=== PATIENT | female | born 1965 | race Caucasian/White ===

== ENCOUNTER → 2017-07-27 14:57 | Outpatient (CLI) | payer OTHER, SELFPAY ==
[2017-07-27 15:27] LABS: Basophils # 0.1 K/mm3 (0-0.2); Basophils % 0.6 % (0.1-2.0); Eosinophils # 0.2 K/mm3 (0.0-0.4); Hematocrit 37.6 % (37.0-47.0); Hemoglobin 12.2 g/dL (12.2-16.2); Lymphocytes # 1.9 K/mm3 (0.7-4.5); Lymphocytes % 20.8 K/mm3 (10-50); Mean Corpuscular HGB Conc 32.5 g/dL (31.8-35.4); Mean Corpuscular Hemoglobin 31.6 pg (27.0-31.2); Mean Corpuscular Volume 97.2 fl (81-99); Mean Platelet Volume 7.8 fl (7.4-10.4); Monocytes # 0.5 K/mm3 (0.1-1.0); Monocytes % 5.6 % (1.7-9.3); Neutrophils # 6.6 K/mm3 (1.8-7.8); Platelet Count 312 K/mm3 (142-424); Red Blood Count 3.86 M/mm3 (4.20-5.40); Red Cell Distribution Width 13.4 % (11.5-17.5); White Blood Count 9.3 K/mm3 (4.8-10.8)
[2017-07-27 16:00] LABS: Anion Gap 12.1 mEq/L (5-15); Blood Urea Nitrogen 9 mg/dL (7-18); Carbon Dioxide 29 mmol/L (21.0-32.0); Chloride 107 mmol/L (98-107); Creatinine,Serum 0.74 mg/dL (0.55-1.02); Estimated Glomerular Filt Rate 83 ml/min (>60); GFR (African American) 100 ML/MIN (>60); Glucose 105 mg/dL (74-106); Potassium 4.1 mmoL/L (3.5-5.1); Sodium 144 mmol/L (136-145)
== END ==
PROVIDERS: PCP Emergency Medicine; Visit Provider Nurse Practitioner Obstetrics & Gynecology
DX: Z01.818 Encounter for other preprocedural examination (principal)
CPT/HCPCS: 36415; 80048; 85025; 93005

== ENCOUNTER 2017-07-29 11:00 | Inpatient (IN) | payer OTHER, SELFPAY ==
[2017-07-27 12:55] VITALS: BMI 29.2
[2017-07-29] VITALS (28 sets, daily range): BP systolic 128–177; BP diastolic 69–102; PULSE 69–95; RESP 16–20; TEMP 36.5–43; O2SAT 96–100
--- NOTE | 2017-07-29 07:03 | HMH.ANESCL ---
[facility] Anesthesia Checklist - Structural Data Admitted From: Home Planned Operative Procedure/s: lavh,bso Consent for Planned Operative Procedure(s) Verified: Yes Verified Documents: Surgical Consent - Airway Assessment C-Spine Mobility Assessed: Yes TMJ Mobility Assessed: Yes Dentition: Good Dentition - Neurological Assessment Level of Consciousness: Awake, Alert - Anesthesia Plan Anesthesia Risk discussed: Yes Anesthesia Plan: Verified ASA Class: II Anesthesia Type: General [facility] Anesthesia HX I have reviewed the patient's past medical history: Yes Medical History: Reports:: Hypertension Denies:: Cancer, Diabetes Mellitus Type 1, Diabetes Mellitus Type 2, Internal Pacemaker, MRSA, Seizures Other Medical History: Reports: Arthritis, Thyroid Disease. Denies: Blood Transfusion Reaction Laterality Cases: Right: Carpal Tunnel Release Other Surgeries: Yes: Tubal Ligation. No: Pacemaker Amputation: No Fractures: No Comment: carpal tunnel, ablation *Family Hx:: Hypertension, Diabetes, Heart Attack, Cancer
--- NOTE | 2017-07-29 07:07 | P.PN_ITS ---
[facility] Anesthesia Checklist - Structural Data Admitted From: Home Planned Operative Procedure/s: lavh,bso Consent for Planned Operative Procedure(s) Verified: Yes Verified Documents: Surgical Consent - Airway Assessment C-Spine Mobility Assessed: Yes TMJ Mobility Assessed: Yes Dentition: Good Dentition - Neurological Assessment Level of Consciousness: Awake, Alert - Anesthesia Plan Anesthesia Risk discussed: Yes Anesthesia Plan: Verified ASA Class: II Anesthesia Type: General [facility] Anesthesia HX I have reviewed the patient's past medical history: Yes Medical History: Reports:: Hypertension Denies:: Cancer, Diabetes Mellitus Type 1, Diabetes Mellitus Type 2, Internal Pacemaker, MRSA, Seizures Other Medical History: Reports: Arthritis, Thyroid Disease. Denies: Blood Transfusion Reaction Laterality Cases: Right: Carpal Tunnel Release Other Surgeries: Yes: Tubal Ligation. No: Pacemaker Amputation: No Fractures: No Comment: carpal tunnel, ablation *Family Hx:: Hypertension, Diabetes, Heart Attack, Cancer
[2017-07-29 07:11] LABS: Urine Pregnancy, HCG Qual. Negative (Negative)
--- NOTE | 2017-07-29 09:44 | HMH.OPNOTE ---
Date of procedure: 07/29/17 Pre-op Diagnosis:: Menorrhagia, fibroid uterus Post-op diagnosis:: other (Menorrhagia, fibroid uterus, omental adhesions) Procedure performed:: Laparoscopically assisted vaginal hysterectomy, bilateral salpingo-oophorectomy, extensive lysis of adhesions Surgeon:: Tim Ventura MD Ceramics Engineer(s):: Becki Preston REAL ESTATE LISTING CONSULTANT:: Adolfo Jamison Anesthesia: GETA Estimated blood loss (mL): 150 Clinical Note:: She is a 51-year-old lady who complains of bleeding around menopause. She has sound that showed a 3 cm fibroid within the endometrial cavity. I attempted endometrial biopsy but was unsuccessful as the cervical loss was too stenotic and she has had a previous endometrial ablation. After having discussed the risks and benefits we elected to go ahead with a laparoscopically assisted vaginal hysterectomy and bilateral salpingo-oophorectomy. Operative findings:: She had an anteverted bulky uterus consistent with her 3 cm fibroid. Ovaries and tubes appeared normal. There were extensive adhesions of omentum to the anterior abdominal wall just below the umbilicus. Rest the pelvis and upper abdomen appeared normal. Operative note:: She was taken to the operating room where general anesthesia was found to be adequate. She was prepped and draped in the normal sterile fashion in the semilithotomy position. A weighted speculum was placed in the vagina and the anterior lip of the cervix was grasped with a tenaculum. I then inserted an acorn retractor into the cervical office. I changed gloves and injected 10 cc of 0.5% ropivacaine around the umbilicus. Incision within the umbilicus and inserted a Veress needle into the abdominal cavity. The abdominal cavity was then insufflated with carbon dioxide gas to a pressure of 20 mmHg. I then inserted an 11 mm trocar under direct vision. I injected through and through at the pubic hairline, made a small incision here and inserted a 5 mm trocar under direct vision. I identified the inferior epigastric arteries on the left side, injected through and through and then inserted an 11 mm trocar under direct vision. This was similarly performed on the right side. The left round ligament was then grasped and cut with harmonic scalpel. This is followed by the anterior peritoneum to the midline overlying the bladder. I then grasped the left tube and cut through this with harmonic scalpel. The left utero-ovarian ligament was then taken down with harmonic scalpel. I then took down the posterior aspect of the broad ligament to the level of the uterosacral ligament on the left side. The uterine arteries were skeletonized. The bladder was then further taken down with harmonic scalpel. The uterine arteries were then identified and hemoclips were placed. Using harmonic scalpel on coagulation mode adjacent to the cervix I then took down the uterine arteries in a [id number] fashion. We then turned our attention to the patient's right side. The right round ligament was then taken down with harmonic scalpel. The anterior peritoneum was then taken down with harmonic scalpel joining up with the other side. The right tube was then cut with harmonic scalpel. The right utero-ovarian ligament was then grasped and using coagulation mode I cut through the ligament. The posterior aspect of the broad ligament on the right side was then taken down to the level of the uterosacral ligament. I further took down the bladder anteriorly and laterally. The uterine arteries on the right side were then skeletonized. Lynette applied to the uterine arteries and once again using harmonic scalpel adjacent to the cervix on coagulation mode I took down the uterine arteries. At this point in time it was noted that the uterine platelet ischemic. The left ovary was then grasped and using harmonic scalpel I freed it up on its infundibulopelvic ligament. 2 Endoloops were then applied to the ligament and the ovary and tube
--- NOTE | 2017-07-29 09:57 | P.OP_ITS ---
Date of procedure: 07/29/17 Pre-op Diagnosis:: Menorrhagia, fibroid uterus Post-op diagnosis:: other (Menorrhagia, fibroid uterus, omental adhesions) Procedure performed:: Laparoscopically assisted vaginal hysterectomy, bilateral salpingo-oophorectomy , extensive lysis of adhesions Surgeon:: Tim Ventura MD Traffic Rate Clerk(s):: Becki Preston BILINGUAL MANAGER:: Adolfo Jamison Anesthesia: GETA Estimated blood loss (mL): 150 Clinical Note:: She is a 51-year-old lady who complains of bleeding around menopause. She has sound that showed a 3 cm fibroid within the endometrial cavity. I attempted endometrial biopsy but was unsuccessful as the cervical loss was too stenotic and she has had a previous endometrial ablation. After having discussed the risks and benefits we elected to go ahead with a laparoscopically assisted vaginal hysterectomy and bilateral salpingo-oophorectomy. Operative findings:: She had an anteverted bulky uterus consistent with her 3 cm fibroid. Ovaries and tubes appeared normal. There were extensive adhesions of omentum to the anterior abdominal wall just below the umbilicus. Rest the pelvis and upper abdomen appeared normal. Operative note:: She was taken to the operating room where general anesthesia was found to be adequate. She was prepped and draped in the normal sterile fashion in the semilithotomy position. A weighted speculum was placed in the vagina and the anterior lip of the cervix was grasped with a tenaculum. I then inserted an acorn retractor into the cervical office. I changed gloves and injected 10 cc of 0.5% ropivacaine around the umbilicus. Incision within the umbilicus and inserted a Veress needle into the abdominal cavity. The abdominal cavity was then insufflated with carbon dioxide gas to a pressure of 20 mmHg. I then inserted an 11 mm trocar under direct vision. I injected through and through at the pubic hairline, made a small incision here and inserted a 5 mm trocar under direct vision. I identified the inferior epigastric arteries on the left side, injected through and through and then inserted an 11 mm trocar under direct vision. This was similarly performed on the right side. The left round ligament was then grasped and cut with harmonic scalpel. This is followed by the anterior peritoneum to the midline overlying the bladder. I then grasped the left tube and cut through this with harmonic scalpel. The left utero-ovarian ligament was then taken down with harmonic scalpel. I then took down the posterior aspect of the broad ligament to the level of the uterosacral ligament on the left side. The uterine arteries were skeletonized. The bladder was then further taken down with harmonic scalpel. The uterine arteries were then identified and hemoclips were placed. Using harmonic scalpel on coagulation mode adjacent to the cervix I then took down the uterine arteries in a [id number] fashion. We then turned our attention to the patient 's right side. The right round ligament was then taken down with harmonic scalpel. The anterior peritoneum was then taken down with harmonic scalpel joining up with the other side. The right tube was then cut with harmonic scalpel. The right utero-ovarian ligament was then grasped and using coagulation mode I cut through the ligament. The posterior aspect of the broad ligament on the right side was then taken down to the level of the uterosacral ligament. I further took down the bladder anteriorly and laterally. The uterine arteries on the right side were then skeletonized. Lynette applied to the uterine arteries and once again using harmonic scalpel adjacent to the cervix on coagulation mode I took herman
--- NOTE | 2017-07-29 10:01 | P.PN_ITS ---
[facility] Anesthesia Record Part II Discharge Time: 10:27 Destination: Medical Surgical Department PACU nurse assessment reviewed?: Yes Patient Condition:: Good Anesthesia Complications:: None
--- NOTE | 2017-07-29 10:01 | P.PN_ITS ---
[facility] Anesthesia Record Part I Intake, IV Amount: 1,000 Estimated blood loss (mL): 150 Urine output (mL): 50 Blood Products used (#): none Blood Pressure: 177/99 SaO2: 99 Pulse Rate: 77 Respiratory Rate: 18 Temperature: 98.0 F Patient is:: Drowsy, Nasal O2, Stable Stable to PACU at:: 09:57
[2017-07-29 11:03] LABS: Microscopic,Cath URINE MICROSCOPIC (MICROSCOPIC)
[2017-07-29 11:05] LABS: Appearance,Urine/Cath CLEAR (Clear); Bilirubin,Cath Negative (Negative); Blood, Urine/Cath TRACE-I (Negative); Color,Urine/Cath YELLOW (Yellow); Glucose,Urine/Cath (UA) Negative (Negative); Ketones,Urine/Cath Negative (Negative); Leukocyte Esterase,Cath Negative (Negative); Nitrate,Cath Negative (Negative); Protein,Urine/Cath Negative (Negative); Urobilinogen,Cath 0.2 EU/dl (0.2)
[2017-07-29 11:36] LABS: Bacteria,Urine/Cath 2+ /lpf; WBC,Urine/Cath Occasional #/hpf (0-3)
[2017-07-29 11:38] LABS: Squamous Epithelial Ur./Cath Occasional #/hpf (0-5)
--- NOTE | 2017-07-29 12:26 | SUR.PHASEI ---
1040-Pt transported to OB department room 279 via hospital bed per PrateekRN & KayliRN. Pt left in care of MEÑO Jacobson w/bed locked in lowest position. VSS. Family at bedside. Pt stable.
--- NOTE | 2017-07-29 15:54 | PC.NURSE ---
ANCEF 1 GM ANTIBIOTIC DOSE #1 POST OP NOW INFUSING. PATIENT TOLERATING MEDICATION WELL.
--- NOTE | 2017-07-29 17:07 | PC.NURSE ---
DR REILLY HERE ROUNDING THIS PM, INFORMED HIM OF PATIENT'S BLOOD PRESSURES BEEN SOMEWHAT ELELVATED, SHE TAKES LISINOPRIL 20 MG/ HCTZ 12.5 MG PO DAILY AND LEVOTHYROXINE 137MCG PO DAILY, HE WANTED FOR HER TO GET STARTED BACK ON HER HOME MEDICATIONS.
--- NOTE | 2017-07-29 17:30 | PC.NURSE ---
PATIENT IS S/P A LAVH * BSO* WITH LYSIS OF ADHESIONS WITH GENERAL ANESTHESIA. PATIENT HAS HAD SOME NAUSEA THIS AFTERNOON, ONLY A VERY SMALL AMOUNT OF EMESIS CAME UP, SHE HAS HAD ZOFRAN AND PHENERGAN THIS HAS HELPED SOME. PATIENT HAS 4 SMALL LAP SITES TO HER ABDOMEN, TELFA & TAGADERM THAT ARE DRY AND INTACT. SHE HAS HAD VERY SCANT AMOUNT OF DRAINAGE NOTED TO HER CHERYL PAD,PATIENT WAS STILL COMPLAINING OF ALOT OF DISCOMFORT FROM HER CATHETER, DR. REILLY WAS NOTIFIED AND HE WAS OKAY WITH US REMOVING IT NOW. BLOOD PRESSURES HAVE BEEN ELEVATED DURING HER PROCEDURE AND NOW DURING HER POST OP VS. Alex REILLY WAS NOTIFIED AND HER HOME MEDS HAVE BEEN RESTARTED AND THEY ARE STARTING TO IMPROVE ALREADY THE LAST BP WAS 145/84- HR 88-.
--- NOTE | 2017-07-29 18:43 | PC.NURSE ---
DR REILLY NOTIFIED PATIENT REQUESTING TO HAVE PADILLA CATH REMOVED TONIGHT INSTEAD OF IN THE AM. DR REILLY ORDERED TO REMOVE CATHETER TONIGHT. STATES SHE CAN HAVE WHATEVER SHE WANTS TO EAT THIS EVENING. STATES WILL BE DISCHARGED IN THE AM
--- NOTE | 2017-07-29 19:30 | PC.NURSE ---
Report received from Corby Chamberlain RN
[2017-07-30 04:15] VITALS: BP 160/85; PULSE 71; RESP 18; TEMP 37
--- NOTE | 2017-07-30 05:00 | PC.NURSE ---
Pt has rested well throughout the night. Has been very independent with her care. Ambulates in room freely and without difficulty. Tolerating small amounts of regular diet. (+) BS in all 4 quads, hypoactive. Denies issues with voiding. Has voided 600ml yellow, clear urine since removal of blas cath.. LR continues infusing at 125/hr.. 4 lap sites on abdomen with surgical dressings intact. Bottom dressing has old, light, sero-sang drainage. Abdomen non-distended and soft to palpate. Denies passing flatus. Lungs - wheezing in RT upper lobe, otherwise, clear and diminished. Loose, non-productive cough. Reports using incentive spirometer. V/S - BP high (normal for pt- takes meds), otherwise, WNL, afebrile. No edema noted. No longer wearing SCDs r/t ambulation. Denies any needs this morning other than her coffee. Looking forward to being discharged home.
[2017-07-30 06:48] LABS: Anion Gap 9.2 mEq/L (5-15); Blood Urea Nitrogen 8 mg/dL (7-18); Carbon Dioxide 27 mmol/L (21.0-32.0); Chloride 97 mmol/L (98-107); Creatinine Clearance Estimated 111 mL/min (0-300); Creatinine,Serum 0.71 mg/dL (0.55-1.02); Estimated Glomerular Filt Rate 87 ml/min (>60); GFR (African American) 105 ML/MIN (>60); Glucose 116 mg/dL (74-106); Potassium 3.2 mmoL/L (3.5-5.1); Sodium 130 mmol/L (136-145)
[2017-07-30 06:50] LABS: Basophils % 0.1 % (0.1-2.0); Eosinophils # 0.1 K/mm3 (0.0-0.4); Hematocrit 30.7 % (37.0-47.0); Hemoglobin 10.4 g/dL (12.2-16.2); Lymphocytes # 1.7 K/mm3 (0.7-4.5); Mean Corpuscular HGB Conc 33.8 g/dL (31.8-35.4); Mean Corpuscular Hemoglobin 32.3 pg (27.0-31.2); Mean Corpuscular Volume 95.6 fl (81-99); Mean Platelet Volume 8.2 fl (7.4-10.4); Monocytes # 0.8 K/mm3 (0.1-1.0); Monocytes % 6.7 % (1.7-9.3); Neutrophils # 8.8 K/mm3 (1.8-7.8); Neutrophils % 77.1 % (37.0-80.0); Platelet Count 238 K/mm3 (142-424); Red Blood Count 3.21 M/mm3 (4.20-5.40); Red Cell Distribution Width 13.1 % (11.5-17.5); White Blood Count 11.5 K/mm3 (4.8-10.8)
[2017-07-30 08:00] VITALS: BP 143/78; PULSE 79; RESP 18; TEMP 36.9; O2SAT 99
--- NOTE | 2017-07-30 08:00 | PC.NURSE ---
PATIENT WAS WEARING HER SCUDS BUT REMOVED THEM THIS AM, SHE IS AMBULATING IN THE ROOM INDEPENDENTLY AND WILL BE GOING HOME LATER THIS AM.
--- NOTE | 2017-07-30 08:24 | P.DS_ITS ---
General - General Admission date: 07/29/17 Discharge date: 07/30/17 HPI HPI: She is a 51-year-old lady who has had a previous ablation. She had an ultrasound because of bleeding and the ultrasound showed a 3 cm fibroid within the endometrial cavity. As result of that she was offered laparoscopically assisted vaginal hysterectomy and bilateral salpingo-oophorectomy. Objective Vital signs: Temp Pulse Resp BP Pulse Ox 98.6 F 71 18 160/85 97 07/30/17 04:15 07/30/17 04:15 07/30/17 04:15 07/30/17 04:15 07/29/17 18:00 no acute distress - *Routine Respiratory Exam Comments: She denies any shortness of breath or chest pain. Hospital Course Hospital Course: On July 29, 2017 she underwent a laparoscopically assisted vaginal hysterectomy and bilateral salpingo-oophorectomy. She has done well postop and has remained afebrile throughout her hospitalization. She is eating and drinking and ambulating. She is voiding well. She denies chest pain, shortness of breath or calf tenderness. Her incisions are clean and dry. She has received Delestrogen 20 mg in the PACU. Results Labs on day of discharge: Labs from last 24 hours 07/30/17 07/30/17 07/29/17 06:30 06:30 09:05 WBC 11.5 H RBC 3.21 L Hgb 10.4 L Hct 30.7 L MCV 95.6 MCH 32.3 H MCHC 33.8 RDW 13.1 Plt Count 238 MPV 8.2 Neut % (Auto) 77.1 Lymph % (Auto) 15.0 Larue % (Auto) 6.7 Eos % (Auto) 1.0 Baso % (Auto) 0.1 Neut # (Auto) 8.8 H Lymph # (Auto) 1.7 Larue # (Auto) 0.8 Eos # (Auto) 0.1 Baso # (Auto) 0.0 Sodium 130 L Potassium 3.2 L D Chloride 97 L Carbon Dioxide 27 Anion Gap 9.2 BUN 8 Creatinine 0.71 Estimated Creat Clear 111 Estimated GFR 87 Est GFR ( Amer) 105 Glucose 116 H Urine Color Yellow Urine Appearance Clear Urine pH 6.0 Ur Specific Wooton 1.020 Urine Protein Negative Urine Glucose (UA) Negative Urine Ketones Negative Urine Blood Trace-i Urine Nitrate Negative Urine Bilirubin Negative Urine Urobilinogen 0.2 Ur Leukocyte Esterase Negative Urine RBC None Urine WBC Occasional Ur Squamous Epith Cells Occasional Urine Bacteria 2+ A DS: Diagnosis - Discharge Diagnosis (1) Fibroid, uterine Status: Acute Discharge Plan - Patient Discharge Instructions ACTIVITY: No heavy lifting DIET: continue same diet - Follow up Plan Disposition: Home, Self-Nursing Home Medications: Home Medications Medication Instructions Recorded Confirmed Type hydrochlorothiazide 12.5 mg tablet 12.5 mg PO ONCE 07/21/17 07/29/17 History levothyroxine 200 mcg tablet 137 mcg PO DAILY 07/21/17 07/29/17 History lisinopril 20 mg tablet 20 mg PO ONCE 07/21/17 07/29/17 History Prescriptions/Medication Reconciliation: Continue levothyroxine 200 mcg tablet 137 mcg PO DAILY hydrochlorothiazide 12.5 mg tablet 12.5 mg PO ONCE lisinopril 20 mg tablet 20 mg PO ONCE
--- NOTE | 2017-07-30 10:00 | HMH.PHAVTE ---
[facility] Pharmacy VTE Monitoring - Patient Demographics Admission date: 07/29/17 Report Date: 07/30/17 Time: 10:00 Allergies/Adverse Reactions: Patient Allergies No Known Allergies Allergy (Unverified 06/02/17 14:38) Height: 1.6 m Weight: 74.956 kg Patient Problems: Current Active Problems Fibroid, uterine (Acute) - VTE Risk Labs: VTE Related Lab Results Hgb 10.4 g/dL (12.2-16.2) L 07/30/17 06:30 Hct 30.7 % (37.0-47.0) L 07/30/17 06:30 Plt Count 238 K/mm3 (142-424) 07/30/17 06:30 BUN 8 mg/dL (7-18) 07/30/17 06:30 Creatinine 0.71 mg/dL (0.55-1.02) 07/30/17 06:30 Estimated Creat Clear 111 mL/min (0-300) 07/30/17 06:30 - Prophylaxis VTE Prophylaxis Ordered?: Yes Types of VTE Prophylaxis: IPCS Knee High Location of Applied Device: Bilateral Lower Extremeties - VTE Diagnosis Confirmed Treatment or plan recommended: Continue Current Treatment
[2017-07-30 10:01] VITALS: RESP 18
== END 2017-07-30 10:15 | disposition home or self-care (01) | DRG 743 ==
LOC: OB 12:00
PROVIDERS: Admitting Provider Nurse Practitioner Obstetrics & Gynecology; Family Provider Emergency Medicine; PCP Emergency Medicine; Visit Provider Nurse Practitioner Obstetrics & Gynecology
PROC: 0UT9FZZ Resection of Uterus, Via Natural or Artificial Opening With Percutaneous Endoscopic Assistance (ICD-10-PCS; principal; 2017-07-29 07:30)
DX: N92.0 Excessive and frequent menstruation with regular cycle (principal); D25.9 Leiomyoma of uterus, unspecified; N73.6 Female pelvic peritoneal adhesions (postinfective)
CPT/HCPCS: 58552; 36415; 80048; 81001; 81025; 85025; 87086; 87088; 87186; 93005; 96372; 96374; J0131; J2270; J2405

== ENCOUNTER → 2017-10-29 10:05 | Outpatient (CLI) | payer OTHER, SELFPAY ==
--- NOTE | 2017-10-29 10:08 | XR_ITS ---
XR shoulder LT min 2V HISTORY: ITS.REASON: left shoulder pain ORDERING PHYSICIAN: Robb Powers MD PATIENT AGE: 51 years Comparison: None FINDINGS: 3 views obtained of left shoulder including an axillary view and Grashey view obtained No fracture or dislocation. No lytic or blastic change. There is normal mineralization. The joint spaces are well-preserved. No significant degenerative/arthritic changes. No erosive changes evident. No subacromial stenosis IMPRESSION: Negative, no acute finding
== END ==
PROVIDERS: PCP Emergency Medicine; Visit Provider Orthopaedic Surgery
DX: M75.42 Impingement syndrome of left shoulder (principal)
CPT/HCPCS: 73030

== ENCOUNTER → 2018-05-17 13:35 | Outpatient (CLI) | payer OTHER, SELFPAY ==
[2018-05-17 13:46] LABS: Basophils # 0.1 K/mm3 (0-0.2); Basophils % 0.6 % (0.1-2.0); Eosinophils # 0.1 K/mm3 (0.0-0.4); Eosinophils % 1.4 % (0.1-12.0); Hematocrit 43.9 % (37.0-47.0); Hemoglobin 14.2 g/dL (12.2-16.2); Lymphocytes # 1.5 K/mm3 (0.7-4.5); Lymphocytes % 17.8 % (10-50); Mean Corpuscular HGB Conc 32.3 g/dL (31.8-35.4); Mean Corpuscular Hemoglobin 31.8 pg (27.0-31.2); Mean Corpuscular Volume 98.4 fl (81-99); Mean Platelet Volume 7.8 fl (7.4-10.4); Monocytes # 0.5 K/mm3 (0.1-1.0); Monocytes % 5.6 % (1.7-9.3); Neutrophils % 74.5 % (37.0-80.0); Platelet Count 317 K/mm3 (142-424); Red Blood Count 4.46 M/mm3 (4.20-5.40); White Blood Count 8.1 K/mm3 (4.8-10.8)
[2018-05-17 14:08] LABS: Alanine Aminotransferase 23 U/L (12-78); Albumin Level 3.8 gm/dL (3.4-5.0); Albumin/Globulin Ratio 1.2 (1.1-1.8); Alkaline Phosphatase 105 U/L (46-116); Anion Gap 16.6 mEq/L (5-15); Aspartate Amino Transferase 13 U/L (15-37); Bilirubin,Total 0.3 mg/dL (0.2-1.0); Blood Urea Nitrogen 7 mg/dL (7-18); Calcium 9.6 mg/dL (8.5-10.1); Carbon Dioxide 25 mmol/L (21.0-32.0); Chloride 101 mmol/L (98-107); Cholesterol 175 mg/dL (140-200); Creatinine,Serum 0.76 mg/dL (0.55-1.02); Estimated Glomerular Filt Rate 80 ml/min (>60); Free T4 (Free Thyroxine) 0.84 ng/dl (0.76-1.46); GFR (African American) 97 ML/MIN (>60); Globulin 3.2 gm/dl (1.3-3.2); Glucose 87 mg/dL (74-106); HDL Cholesterol 58 mg/dL (29-89); LDL Cholesterol 102 mg/dL (0-130); Potassium 4.6 mmoL/L (3.5-5.1); Sodium 138 mmol/L (136-145); Thyroid Stimulating Hormone 1.84 uIU/ml (0.358-3.740); Triglycerides 77 mg/dL (30-200); VLDL Cholesterol 15 mg/dL (0-40)
[2018-05-18 10:32] LABS: Vitamin D 25 Hydroxy 23.2 ng/mL (30.0-100.0)
== END ==
PROVIDERS: Visit Provider Emergency Medicine
DX: I10 Essential (primary) hypertension (principal)
CPT/HCPCS: 80053; 80061; 82652; 84439; 84443; 85025

== ENCOUNTER → 2018-09-02 07:41 | Outpatient (CLI) | payer BC, OTHER, SELFPAY ==
--- NOTE | 2018-09-02 07:42 | NM_ITS ---
CARDIOLITE SPECT MYOCARDIAL PERFUSION LEXISCAN, REST AND STRESS: History: Hypertension, tobacco use, family history, fatigue Procedure: Patient exercised on Gordo protocol 8 minutes and 20 seconds, resting heart rate was 55 bpm resting blood pressure 154/87, with exercise maximum heart rate achieved was 1 26 bpm which is less than 85% of the maximum predicted heart rate and a blood pressure was 200, 90. Test was stopped due to shortness of breath and fatigue patient denied complained of chest pain. She has good exercise capacity achieved 10.1mets of workload on treadmill, the blood pressure response to exercise was adequate. Electrocardiogram: Resting electrocardiogram showed sinus bradycardia, possible high lateral infarct age indeterminate, with exercise there is less than 1.[address] segment depression noted from the baseline EKG. The EKG portion of the exercise Myoview is nondiagnostic as patient did not achieve the target heart rate. Cardiac stress and resting SPECT images: Cardiac stress and rest SPECT images were obtained using technetium 99 Myoview 32.1 mCi stress and 10.0 mCi at rest. Gated SPECT further analysis of segmental wall motion and calculation of ejection fraction also done. Cardiac stress and the suspect images show uniform myocardial activity without segmental perfusion abnormality, computer derived ejection fraction is 57% with no regional wall motion abnormality, right ventricle is normal size and contractility. Conclusion: 1. The EKG portion of the exercise Myoview is nondiagnostic as patient did not achieve the target heart rate, patient has good exercise capacity achieved 10.1mets of workload on treadmill, the blood pressure response to exercise was adequate, there was no exercise-induced chest discomfort. 2. No scintigraphic evidence of reversible ischemia seen at this level of exercise, computer derived ejection fraction is 57% with no regional wall motion abnormality, right ventricle is normal size and contractility.
--- NOTE | 2018-09-02 07:42 | CT_ITS ---
CT chest wo con HISTORY: Tobacco abuse, smoker, hypertension, COPD ITS.REASON: tob abuse ORDERING PHYSICIAN: Cash Gray MD PATIENT AGE: 52 years COMPARISON: None Technique: Axial images obtained without contrast. Sagittal, and coronal reformatted images are also generated and reviewed. All CT scans at the facility use one or more dose reduction, viz: automated exposure control, ma/kV adjustment per patient size (including targeted exams where dose is matched to indication, i.e. head), or iterative reconstruction technique. FINDINGS: There are few scattered small mediastinal lymph nodes some of which are calcified. No mediastinal or hilar mass or adenopathy. Coronary artery calcifications are present There are mild paraseptal emphysematous changes with hyperinflation and attenuation of the peripheral pulmonary vessels consistent with COPD. Calcified granuloma is present in the right upper lobe. 3 mm noncalcified nodule present in the central aspect of the right lower lobe series 3 image 42. Additional 3 to 4 mm noncalcified nodule present in the right lower lobe series 3 image 52. There are some mild fibrotic changes in the left lung base medially. A 7 mm noncalcified nodule with small central cavitation noted in the left lower lobe centrally series 3 image 45 associated with some bronchial thickening in this region. Upper abdominal images show left renal atrophy with a small exophytic cyst at 1.4 cm. Multilevel degenerative changes are present in the thoracic spine. IMPRESSION: 1. There are at least 2 noncalcified pulmonary nodules on the right at 4 mm or less. There is a 7 mm noncalcified nodule in the left lower lobe with a small central cavity associated with some bronchial thickening. Suggest 6 month follow-up for these findings. The left lower lobe nodule is indeterminate. 2. COPD with paraseptal emphysema 3. Coronary artery calcification
--- NOTE | 2018-09-02 07:42 | CA_ITS ---
PROCEDURE: 2-D M-mode and color Doppler study INDICATIONS FOR THE TEST: Chest pain COPD Heart Murmur Tobacco SmokingX Palpitations Fatigue SyncopeX Edema HypertensionXDiabetes Mellitus Rheumatic Fever SOB NAQVI Obesity Hyperlipidemia Family History HD Additional History X PATIENT INFORMATION HEIGHT: 62 WEIGHT:140 GENDER: Female B/P:146/83 2-D/M-MODE INTERPRETATION: 2-D MEASUREMENTS OBSERVED VALUES IN CMS Right Ventricular Dimension (RVDd) 2.2 Interventricular Septum (Thickness)(IVsd) 1.1 Left Ventricular Internal Dimensions(LVIDd) 4.9 Left Ventricular Posterior Wall (Thickness)(LVPWd) 1.2 Aortic Root 2.9 Aortic Cusp Separation 1.6 Left Atrial Dimensions (LAD) 3.6 2D 1. Left atrium is mildly enlarged, left ventricle is normal size, mild concentric left ventricular hypertrophy, visually estimated ejection fraction 55% with no regional wall motion abnormality. 2. The right atrium and right ventricle are normal size and contractility. 3. The aortic valve is minimally thickened and fibrosed. 4. The mitral and tricuspid valves are grossly normal. 5. The pulmonic valve is poorly visualized. 6. No significant pericardial effusion noted. DOPPLER INTERROGATION: Doppler interrogation of the aortic, mitral and tricuspid valvular presence of mild mitral and tricuspid regurgitation, calculated right ventricular systolic pressure is 33 mmHg, diastolic parameters are inconclusive, inferior vena cava is normal size with normal inspiratory collapse. CONCLUSION: 1. Mildly enlarged left atrium, normal left ventricular size, mild concentric left ventricular hypertrophy, visually estimated ejection fraction 55% with no regional wall motion abnormality, diastolic parameters are inconclusive. 2. Mild mitral and tricuspid regurgitation, calculated right ventricular systolic pressure 33 mmHg, inferior vena cava is normal size with normal inspiratory collapse. 3. No significant pericardial effusion noted.
--- NOTE | 2018-09-02 12:24 | HMH.ITSHM ---
Current Home Medications as stated by this patient Abigail Arechiga or patient services representative. []lisinopril levothyroxine metoprolol
== END ==
PROVIDERS: PCP Emergency Medicine; Visit Provider Internal Medicine Cardiovascular Disease
DX: R55 Syncope and collapse (principal); R42 Dizziness and giddiness; I10 Essential (primary) hypertension; Z72.0 Tobacco use
CPT/HCPCS: 71250; 78452; 93017; 93306; A9502

== ENCOUNTER → 2019-03-16 13:35 | Outpatient (CLI) | payer BC, SELFPAY ==
--- NOTE | 2019-03-16 13:41 | CT_ITS ---
PROCEDURE: CT CHEST WO CON CLINICAL INDICATION: 6 mth f/u due after 03/05/19 COMPARISON: CT abdomen and pelvis from 04/26/2018 including views of the lower chest. TECHNIQUE: Axial images obtained with sagittal and coronal reformats. All CT scans at the facility use one or more dose reduction, viz: automated exposure control, ma/kV adjustment per patient size (including targeted exams where dose is matched to indication, i.e. head), or iterative reconstruction technique. FINDINGS: Airway structures are patent without pleural effusion or pneumothorax. There is a benign calcified granuloma in the posterior base of the right upper lobe. There are stable irregular strands of increased density at the medial left lower lobe. The remainder of the lung galvez are clear without pleural effusion or pneumothorax. There are a few mild coronary artery calcifications. Heart size is normal. Mediastinal and hilar areas are unremarkable. Visualized upper abdominal structures are stable with partial visualization of the atrophic left kidney. IMPRESSION: No acute process. Medial segment left lower lobe scarring. Right upper lobe nodule is a benign calcified granuloma. Dictated by: Primo Garza 03/16/2019 14:39 Electronically signed by Primo Garza in [place] 03/16/2019 14:39
== END ==
PROVIDERS: PCP Emergency Medicine; Visit Provider Physician Assistant
DX: R91.8 Other nonspecific abnormal finding of lung field (principal)
CPT/HCPCS: 71250

== ENCOUNTER → 2019-05-19 14:23 | Outpatient (CLI) | payer BC, SELFPAY ==
[2019-05-21 18:27] LABS: H. pylori Breath Test Positive (Negative)
== END ==
PROVIDERS: Visit Provider Nurse Practitioner Family
DX: R10.13 Epigastric pain (principal); R11.2 Nausea with vomiting, unspecified
CPT/HCPCS: 83013

== ENCOUNTER → 2019-08-11 13:46 | Outpatient (CLI) | payer BC, SELFPAY ==
[2019-08-11 14:11] LABS: Chloride 98 mmol/L (98-107); Potassium 4.5 mmoL/L (3.5-5.1); Sodium 134 mmol/L (136-145)
[2019-08-11 14:13] LABS: Alanine Aminotransferase 41 U/L (12-78); Aspartate Amino Transferase 34 U/L (14-36); Blood Urea Nitrogen 14 mg/dl (7-17); Estimated Glomerular Filt Rate 88 ml/min (>60); GFR (African American) 106 ML/MIN (>60)
[2019-08-11 14:14] LABS: Albumin Level 3.9 g/dl (3.5-5.0); Albumin/Globulin Ratio 1.6 (1.1-1.8); Alkaline Phosphatase 80 U/L (38-126); Anion Gap 12.5 mEq/L (5-15); Bilirubin,Total 0.2 mg/dl (0.2-1.3); Calcium 9.7 mg/dl (8.4-10.2); Carbon Dioxide 28 mmol/L (22.0-30.0); Cholesterol 132 mg/dl (140-200); Globulin 2.4 g/dL (1.3-3.2); Glucose 101 mg/dl (74-100); HDL Cholesterol 66 mg/dl (40-60); Total Protein,Serum 6.3 g/dl (6.3-8.2); Triglycerides 78 mg/dl (30-150); VLDL Cholesterol 16 mg/dL (0-40)
[2019-08-11 14:16] LABS: Basophils % 0.3 % (0.1-2.0); Eosinophils # 0.1 K/mm3 (0.0-0.4); Eosinophils % 0.7 % (0.1-12.0); Hematocrit 40.8 % (37.0-47.0); Hemoglobin 13.3 g/dL (12.2-16.2); Lymphocytes # 1.2 K/mm3 (0.7-4.5); Lymphocytes % 13.1 % (10-50); Mean Corpuscular HGB Conc 32.6 g/dL (31.8-35.4); Mean Corpuscular Hemoglobin 32.3 pg (27.0-31.2); Mean Platelet Volume 10.3 fl (7.4-10.4); Monocytes # 0.5 K/mm3 (0.1-1.0); Monocytes % 4.8 % (1.7-9.3); Neutrophils # 7.6 K/mm3 (1.8-7.8); Neutrophils % 81.1 % (37.0-80.0); Platelet Count 239 K/mm3 (142-424); Red Blood Count 4.12 M/mm3 (4.20-5.40); White Blood Count 9.4 K/mm3 (4.8-10.8)
[2019-08-11 14:26] LABS: Direct LDL Cholesterol 55.61 mg/dL (100-129)
[2019-08-11 14:34] LABS: T4 (Thyroxine) 8.7 ug/dl (5.53-11.0)
[2019-08-12 10:17] LABS: Vitamin D 25 Hydroxy 50.3 ng/mL (30.0-100.0)
== END ==
PROVIDERS: Visit Provider Nurse Practitioner Family
DX: E07.9 Disorder of thyroid, unspecified (principal); I10 Essential (primary) hypertension
CPT/HCPCS: 80053; 80061; 82652; 84436; 84443; 85025

== ENCOUNTER → 2019-08-26 11:37 | Outpatient (CLI) | payer BC, SELFPAY ==
--- NOTE | 2019-08-26 11:44 | XR_ITS ---
PROCEDURE: XR HIP LT 2-3V W/PELVIS CLINICAL INDICATION: left hip pain Low back pain and left hip pain COMPARISON: [id number] CT abdomen pelvis wo/w con from 04/26/2018 FINDINGS: No fracture or dislocation. Small sclerotic focus is present in the left ilium 3 cm above the acetabulum possibly due to a bone island. Surgical clips are present in the pelvis. IMPRESSION: No acute findings. Dictated by: Dago Johns MD 08/26/2019 12:29 Electronically signed by Dago Johns MD in [place] 08/26/2019 12:29
--- NOTE | 2019-08-26 11:44 | XR_ITS ---
PROCEDURE: XR LUMBAR SPINE MIN 4V CLINICAL INDICATION: back pain Back injury with pain, low back pain radiating into the left hip COMPARISON: No exams were available for comparison FINDINGS: There is mild lumbar curvature convex left. There is degenerative disc disease in the lower thoracic spine, thoracolumbar junction, L1-L4, and L5-S1. Prominent endplate osteophytes are present at L2-L3. There is 1.3 cm anterolisthesis of L5 on S1 with prominent facet hypertrophic changes at L5-S1. There is generalized vascular calcification. No acute fracture or dislocation. IMPRESSION: Multilevel degenerative changes with grade 1-2 spondylolisthesis of L5 on S1 and mild lumbar scoliosis convex left Dictated by: Dago Johns MD 08/26/2019 12:37 Electronically signed by Dago Johns MD in [facility] 08/26/2019 12:37
== END ==
PROVIDERS: PCP Emergency Medicine; Visit Provider Emergency Medicine
DX: M54.9 Dorsalgia, unspecified (principal); M25.552 Pain in left hip
CPT/HCPCS: 72110; 73502

== ENCOUNTER → 2019-09-06 16:20 | Outpatient (CLI) | payer BC, SELFPAY ==
--- NOTE | 2019-09-06 16:20 | MM_ITS ---
PROCEDURE: MM DIG SCREENING MAMM BI W/CAD Digital Breast Tomosynthesis Included CLINICAL INDICATION: screening There is no personal or family history of breast cancer. COMPARISON: DIGMAMMS MAMMOGRAM SCREEN-POLYSOMNOGRAPHIC TECH N/C from 11/22/2002 [facility] DIGITAL MAMM-SCREEN BILATERAL from 10/23/2010 [facility] DIG MAMM-SCREEN MANUEL W/CAD from 11/28/2016 TECHNIQUE: Standard CC and MLO images and 3D Tomosynthesis was obtained. R2 CAD reviewed. FINDINGS: Moderate diffuse fibroglandular densities are seen throughout both breasts. There are few benign-appearing micro and macrocalcifications in each breast. There is no suspicious lesion in either breast and no suspicious microcalcifications.. IMPRESSION: Fibrofatty parenchyma with no suspicious lesions seen BI-RAD Category: 2 Benign Finding(s) FOLLOW-UP: 1YR 1 Year Follow-up (A letter has been sent to the patient regarding results of the study.) Dictated by: Dr. Sushil Wooten MD 09/07/2019 17:[address] Sushil Wooten MD in [place] 09/07/2019 17:13
== END ==
PROVIDERS: PCP Emergency Medicine; Visit Provider Emergency Medicine
DX: Z12.31 Encounter for screening mammogram for malignant neoplasm of breast (principal)
CPT/HCPCS: 77063; 77067

== ENCOUNTER 2019-09-28 14:07 | Emergency (ER) | payer BC, SELFPAY ==
[2019-09-28 14:10] VITALS: BP 148/73; PULSE 78; RESP 18; TEMP 36.7; O2SAT 97; BMI 29.2
--- NOTE | 2019-09-28 14:24 | HMH.COUGH ---
Cough Clinic HPI - History of Present Illness Complaint:: Cough, drainage and fever HPI:: Presents with 3 days of cough, occasionally productive associated with clear sinus drainage and headache. Has taken Claritin D with no imrovement in her synptoms. Temperature at home today was 99.4 and her PCP directed her to the [facility] Cough Clinic. No known exposure to confirmed COVID-19 case. Works at [employer]. Smokes 1 PPD. Home Medications: Home Medications Medication Instructions Recorded Confirmed Type Albuterol Sulfate [Albuterol 2.5 mg IH Q6HP PRN #90 neb 08/09/19 09/28/19 Rx 0.083% 2.5mg/3mL neb] acetaminophen 300 mg-codeine 30 mg 1 tab PO BID PRN #14 tab 08/26/19 09/28/19 Rx tablet cholecalciferol (vitamin D3) 25 1,000 unit PO DAILY #90 cap 09/08/19 09/28/19 Rx mcg (1,000 unit) capsule ergocalciferol (vitamin D2) 1,250 50,000 unit PO QWEEK #12 cap 09/08/19 09/28/19 Rx mcg (50,000 unit) capsule lisinopril 20 1 tab PO DAILY #90 tab 09/08/19 09/28/19 Rx mg-hydrochlorothiazide 25 mg tablet Amoxicillin [Amoxicillin 875MG 875 mg PO Q12H #20 tab 09/28/19 Rx Tab] Fluoxetine HCl 40 mg PO DAILY 09/28/19 09/28/19 History Levothyroxine Sodium [Synthroid 150 mcg PO DAILY 09/28/19 09/28/19 History 150mcg (0.15mg) tablet] Metoprolol Succinate 100 mg PO DAILY 09/28/19 09/28/19 History Allergies/Adverse Reactions: Allergies Allergy/AdvReac Type Severity Reaction Status Date / Time No Known Allergies Allergy Verified 08/26/19 09:57 Cough Clinic Triage - Symptoms Fever History: Yes (99.4 at home) Chills: No Myalgia: No Nasal Drainage: Yes Sore Throat: Yes Productive Cough: Yes Non-productive Cough: No Ear or Sinus Pain: Yes (sinus) Joint Pain: No Chest Pain: No Rash: No Shortness of Breath: Yes (considered baseline for her COPD.) Nausea or Vomitting: No Headache: Yes Abdominal Pain: No Diarrhea: No - Exposure History Foreign Travel: No Direct Contact with COVID-19 Patient: No - Risk Factors Greater than 60 Years Old: No COPD: Yes Diabetes: No Heart Disease: No Home Oxygen Use: No Chronic Renal Disease: No Chronic Liver Disease: No Neurologic/Neurodevelopmental/intellectual disability: No Other Chronic Diseases: No If Female, currently : No Current Smoker: Yes Former Smoker: No Cough Clinic History Medical History: Reports:: Anxiety, Chronic Obstructive Pulmonary Disease (COPD), Depression, Gastroesophageal Reflux Disease(GERD), Hyperlipidemia, Hypertension Denies:: Cancer, Diabetes Mellitus Type 1, Diabetes Mellitus Type 2, Internal Pacemaker, MRSA, Seizures Other Medical History: Reports: Arthritis, Hypothyroidism, Thyroid Disease. Denies: Blood Transfusion Reaction Comment: vitamin d def Laterality Cases: Right: Carpal Tunnel Release Other Surgeries: Yes: No Previous Surgery, BSO, Colonoscopy, EGD, Hysterectomy-Total, Tubal Ligation, Other. No: Pacemaker Amputation: No Fractures: No Comment: carpal tunnel, ablation - Social History Smoking Status: Current every day smoker Tobacco Type: cigarettes # Packs/Day (cigarettes): 1 #Yrs smoked (if former smoker): 36 Alcohol Intake: never Alcohol Intake Frequency:: holidays/special occasions only Substance Use Type: denies use Occupational Status: other Housing: house Household Members: spouse Comment: -she has not drank in the past 3-4 weeks; she stopped related to her blood pressure; she would only drink 12 ounces of rattlesnake every night; vodka and coffee mixture. -she will smoke cannabis once in a while - Psychiatric History Pschychiatric History:: Reports:: Anxiety, Depression Family Hx:: Hypertension, Diabetes, Heart Attack, Cancer, Coronary Artery Disease Comment: Father-[email or web address]'s. Mother-[employer] history: Tubal Ligation - Constitutional Constitutional: Denies body ache, Denies chills, Reports fever(s) (low grade) - ENT Ears, Nose, Mouth, and Throat: Reports as per HPI - Cardiovascular Cardiovascula
[2019-09-28 14:27] LABS: Hematocrit 42.8 % (37.0-47.0); Hemoglobin 13.1 g/dL (12.2-16.2); Mean Corpuscular HGB Conc 30.7 g/dL (31.8-35.4); Mean Corpuscular Hemoglobin 30.7 pg (27.0-31.2); Mean Corpuscular Volume 100.2 fl (81-99); Red Blood Count 4.28 M/mm3 (4.20-5.40); White Blood Count 8.6 K/mm3 (4.8-10.8)
[2019-09-28 14:28] LABS: Basophils % 0.4 % (0.1-2.0); Eosinophils # 0.1 K/mm3 (0.0-0.4); Eosinophils % 1.1 % (0.1-12.0); Lymphocytes # 1.6 K/mm3 (0.7-4.5); Lymphocytes % 18.5 % (10-50); Mean Platelet Volume 7.9 fl (7.4-10.4); Monocytes # 0.7 K/mm3 (0.1-1.0); Monocytes % 7.8 % (1.7-9.3); Neutrophils # 6.2 K/mm3 (1.8-7.8); Neutrophils % 72.1 % (37.0-80.0); Platelet Count 294 K/mm3 (142-424)
[2019-09-28 14:45] VITALS: BP 148/73; PULSE 78; RESP 16; TEMP 36.7; O2SAT 97
== END 2019-09-28 14:47 | disposition home or self-care (01) ==
PROVIDERS: Emergency Provider Family Medicine; PCP Emergency Medicine
DX: J01.00 Acute maxillary sinusitis, unspecified (principal); J44.9 Chronic obstructive pulmonary disease, unspecified; F41.8 Other specified anxiety disorders; K21.9 Gastro-esophageal reflux disease without esophagitis; E78.5 Hyperlipidemia, unspecified; I10 Essential (primary) hypertension; E03.9 Hypothyroidism, unspecified; F17.210 Nicotine dependence, cigarettes, uncomplicated
CPT/HCPCS: 36415; 85025; 99201; 99213

== ENCOUNTER 2020-01-03 15:59 | Observation (INO) | payer BC, SELFPAY ==
[2020-01-03] VITALS (14 sets, daily range): BP systolic 121–240; BP diastolic 71–160; PULSE 67–88; RESP 13–19; TEMP 36.5–36.8; O2SAT 96–100; BMI 29.2; BMI 28.1
--- NOTE | 2020-01-03 16:09 | CT_ITS ---
Procedure: CT ANGIO NECK CLINICAL HISTORY: left side numbness Left-sided numbness and dizziness COMPARISON: CT ANGIO HEAD from 01/03/2020 TECHNIQUE: IV Contrast: 100ml Optiray 350 Axial images obtained with sagittal and coronal reformats. All CT scans at the facility use one or more dose reduction, viz: automated exposure control, ma/kV adjustment per patient size (including targeted exams where dose is matched to indication, i.e. head), or iterative reconstruction technique. FINDINGS: CT angiogram of the neck: The aortic arch has an unremarkable appearance aside from some mild calcific plaque. No significant stenotic lesions of the great vessels. The vertebral arteries have an unremarkable appearance on both sides. Right carotid: The common carotid has an unremarkable appearance. The right internal carotid is unremarkable with no significant stenotic lesions. There is only minimal calcific plaque involving the right carotid bulb. Left carotid: The left common carotid has an unremarkable appearance. The carotid bulb and internal carotid artery on the left has an unremarkable appearance. No stenotic lesions. COPD noted in the upper lobes with some patchy ground-glass density in the central aspect of the right upper lobe and to lesser degree in the left upper lobe. There is mild prominence of the nasopharyngeal mucosa bilaterally nonspecific. There is also mild prominence of the tonsils. There are few small cervical lymph nodes CT angiogram of the head: The intracranial portion of the right internal carotid artery has an unremarkable appearance. There is minimal eccentric calcific plaque of the cavernous portion of the left ICA without significant stenosis. No aneurysm, arteriovenous malformation, or major intracranial occlusive process is apparent. The vertebral basilar system has an unremarkable appearance. No evidence of acute dural sinus thrombosis. There are some small filling defects within the sagittal sinus superiorly at the vertex and may be due to arachnoid granulations. The the no enhancing lesions are evident. No midline shift or mass effect. IMPRESSION: 1. No hemodynamic significant stenotic lesions evident in the neck or the head. 2. No evidence of aneurysm AVM or major intracranial occlusive process. 3. COPD with ground-glass density in the central aspect of the right upper lobe and to lesser degree on the left. Atypical/viral pneumonia is a consideration. 4. Mild prominence of the nasopharyngeal mucosa nonspecific Dictated by: Dago Johns MD 01/03/2020 17:37 Electronically signed by Dago Johns MD in [facility] 01/03/2020 17:37
--- NOTE | 2020-01-03 16:10 | ECG_ITS ---
APPROVED REPORT Exam: Resting ECG HR:71 bpm ECG Measurements Heart Rate 71 AXES MD 148 P 61 QRSd 94 QRS 17 QT 412 T 62 QTc 447 <Conclusion> Normal sinus rhythm Possible Left atrial enlargement Incomplete right bundle branch block Possible Anterior infarct, age undetermined Abnormal ECG Electronically signed by : Adolfo Linda, 01/07/2020 08:11:34
--- NOTE | 2020-01-03 16:10 | XR_ITS ---
PROCEDURE: XR CHEST 2V CLINICAL HISTORY: HTN, weakness COMPARISON: CXR CHEST(2 VIEWS-NOT PORTABLE) from 06/21/2014 CT CHEST WO CON from 03/16/2019 XR CHEST 2V from 08/09/2019 FINDINGS: The cardiomediastinal silhouette and pulmonary vascularity are within normal limits. The lungs are clear without infiltrates, suspicious nodules, or pleural effusions. No acute bony abnormalities. IMPRESSION: No acute findings. Dictated by: Dago Johns MD 01/03/2020 17:40 Electronically signed by Dago Johns MD in [place] 01/03/2020 17:40
--- NOTE | 2020-01-03 16:11 | PC.NURSE ---
at bedside at pt arrival
[2020-01-03 16:20] LABS: Basophils % 0.5 % (0.1-2.0); Eosinophils # 0.1 K/mm3 (0.0-0.4); Eosinophils % 1.8 % (0.1-12.0); Hematocrit 38.3 % (37.0-47.0); Hemoglobin 13.4 g/dL (12.2-16.2); Lymphocytes # 1.7 K/mm3 (0.7-4.5); Lymphocytes % 22.4 % (10-50); Mean Corpuscular HGB Conc 34.9 g/dL (31.8-35.4); Mean Corpuscular Hemoglobin 33.1 pg (27.0-31.2); Mean Corpuscular Volume 94.6 fl (81-99); Mean Platelet Volume 8.3 fl (7.4-10.4); Monocytes # 0.5 K/mm3 (0.1-1.0); Neutrophils # 5.3 K/mm3 (1.8-7.8); Neutrophils % 69.3 % (37.0-80.0); Platelet Count 282 K/mm3 (142-424); Red Blood Count 4.04 M/mm3 (4.20-5.40); Red Cell Distribution Width 13.5 % (11.5-17.5); White Blood Count 7.6 K/mm3 (4.8-10.8)
[2020-01-03 16:26] LABS: Alanine Aminotransferase 23 U/L (12-78); Albumin Level 4.3 g/dl (3.5-5.0); Albumin/Globulin Ratio 1.5 (1.1-1.8); Alkaline Phosphatase 124 U/L (38-126); Anion Gap 8.7 mEq/L (5-15); Aspartate Amino Transferase 29 U/L (14-36); Bilirubin,Total 0.5 mg/dl (0.2-1.3); Blood Urea Nitrogen 14 mg/dl (7-17); Calcium 10.2 mg/dl (8.4-10.2); Carbon Dioxide 31 mmol/L (22.0-30.0); Chloride 97 mmol/L (98-107); Creatinine Clearance Estimated 105 mL/min (50-200); Estimated Glomerular Filt Rate 87 ml/min (>60); GFR (African American) 106 ML/MIN (>60); Globulin 2.9 g/dL (1.3-3.2); Glucose 90 mg/dl (74-100); Potassium 3.7 mmoL/L (3.5-5.1); Sodium 133 mmol/L (136-145); Total Protein,Serum 7.2 g/dl (6.3-8.2)
[2020-01-03 16:43] LABS: Troponin I < 0.01 ng/ml (0.00-0.034)
--- NOTE | 2020-01-03 16:44 | PC.NURSE ---
Pt to rad.
[2020-01-03 16:58] LABS: Microscopic, Urine URINE MICROSCOPIC (MICROSCOPIC)
[2020-01-03 17:27] LABS: Appearance,Urine CLEAR (Clear); Bilirubin,Urine Negative (Negative); Blood, Urine Negative (Negative); Color,Urine YELLOW (Yellow); Glucose,Urine (UA) Negative (Negative); Ketones,Urine Negative (Negative); Leukocyte Esterase,Urine Negative (Negative); Nitrate,Urine Negative (Negative); Protein,Urine Negative (Negative); Urobilinogen,Urine 0.2 EU/dl (0.2)
--- NOTE | 2020-01-03 17:29 | HMH.EDGENADL ---
ED Disposition Clinical Impression: Hypertensive emergency, Left arm numbness, Left leg numbness Disposition: Admitted as Observation Condition on Discharge: Good Referrals: Nick Romero MD [Primary Care Provider] - Time of Disposition: 17:51 - Critical Care Critical Care Time: No Attestation: On 01/03/20, the high probability of a clinically significant, sudden or life threatening deterioration of the following system(s) required my full and direct attention, intervention and personal management. The time I documented below is in addition to time spent performing reported procedures but includes the following listed in this critical care notation. Medical Decision Making - Medical Records Medical records reviewed: Yes: I reviewed the patient's medical records. - Meng Inquiry Pt receiving controlled substance: No Vital Signs: 01/03/20 16:11 01/03/20 16:37 01/03/20 17:02 Temperature 98.2 F 98.2 F Temperature Source Oral Oral Pulse Rate [Right] 88 67 Respiratory Rate 16 16 Blood Pressure [Left Arm] 240/160 H 192/100 H 180/110 H Blood Pressure Mean [Left Arm] 186 130 133 Blood Pressure Source [Left Arm] Manual Cuff/ Auscultation Manual Cuff/ Auscultation Blood Pressure Position [Left Arm] Sitting 02 Sat by Pulse Oximetry 99 100 Oxygen Delivery Method Room Air Room Air - Lab Data Lab Results 01/03/20 16:10: WBC 7.6, RBC 4.04 L, Hgb 13.4, Hct 38.3, MCV 94.6, MCH 33.1 H, MCHC 34.9, RDW 13.5, Plt Count 282, MPV 8.3, Neut % (Auto) 69.3, Lymph % (Auto) 22.4, Bond % (Auto) 6.0, Eos % (Auto) 1.8, Baso % (Auto) 0.5, Neut # (Auto) 5.3, Lymph # (Auto) 1.7, Bond # (Auto) 0.5, Eos # (Auto) 0.1, Baso # (Auto) 0.0 01/03/20 16:10: Sodium 133 L, Potassium 3.7, Chloride 97 L, Carbon Dioxide 31 H, Anion Gap 8.7, BUN 14, Creatinine 0.70, Estimated Creat Clear 105, Estimated GFR 87, Est GFR ( Amer) 106, Glucose 90, Calcium 10.2, Total Bilirubin 0.5, AST 29, ALT 23, Alkaline Phosphatase 124, Troponin I < 0.01, Total Protein 7.2, Albumin 4.3, Globulin 2.9, Albumin/Globulin Ratio 1.5 01/03/20 16:46: Urine Color Yellow, Urine Appearance Clear, Urine pH 7.0, Ur Specific Hopkins 1.020, Urine Protein Negative, Urine Glucose (UA) Negative, Urine Ketones Negative, Urine Blood Negative, Urine Nitrate Negative, Urine Bilirubin Negative, Urine Urobilinogen 0.2, Ur Leukocyte Esterase Negative, Urine RBC None, Urine WBC None, Ur Squamous Epith Cells None, Urine Bacteria None 01/03/20 16:46: Urine Opiates Screen Negative, Urine Methadone Screen Negative, Ur Barbituates Screen Negative, Ur Phencyclidine Scrn Negative, Ur Amphetamines Screen Negative, U Benzodiazepines Scrn Negative, Urine Cocaine Screen Negative, U Marijuana (THC) Screen Negative Result diagrams: 01/03/20 16:10 01/03/20 16:10 Orders (Tests/Meds): ED MEDICATIONS Discontinued Medications Generic Name Dose Route Start Last Admin Trade Name Fidelq PRN Reason Stop Dose Admin Ioversol 100 ml 01/03/20 17:06 01/03/20 17:07 Rad-Optiray 350 100ml Vial IV 01/03/20 17:07 100 ml ONCE ONE Administration Protocol Nicardipine HCl 5 mg 01/03/20 17:41 01/03/20 18:05 Cardene Iv 25mg/10ml Vial IV 01/03/20 17:42 5 mg ONCE ONE Administration Sodium Chloride 10 ml 01/03/20 17:06 01/03/20 17:07 Rad-Saline Flush 10ml Syringe IV 01/03/20 17:07 10 ml ONCE ONE Administration Sodium Chloride 50 ml 01/03/20 17:06 01/03/20 17:07 Rad-Ns 50ml Vial IV 01/03/20 17:07 50 ml ONCE ONE Administration ORDERS Category Date Time Status Troponin I Q3H Lab 01/03/20 19:15 Ordered Troponin I Q3H Lab 01/03/20 22:15 Ordered EKG Request [ECG Request by /Kacie] Stat Y 01/03/20 16:10 Ordered Medical Decision Narrative: In summary this is a 54-year-old female presenting to the emergency department with numbness and tingling in her left arm and left leg. Patient is currently asymptomatic on arrival. Last known normal was 4 hours
[2020-01-03 17:39] LABS: Amphetamine/Metha Screen,Urine Negative ng/ml (<1000); Barbiturates Screen,Urine Negative ng/ml (<200)
[2020-01-03 17:40] LABS: Benzodiazepines Screen,Urine Negative ng/ml (<200)
[2020-01-03 17:41] LABS: Cannabinoid Screen,Urine Negative ng/ml (<50); Cocaine Screen,Urine Negative ng/ml (<300)
[2020-01-03 17:42] LABS: Methadone Screen,Urine Negative ng/ml (<300); Opiate Screen,Urine Negative ng/ml (<300)
[2020-01-03 17:43] LABS: Phencyclidine Screen,Urine Negative ng/ml (<25)
--- NOTE | 2020-01-03 17:55 | PC.NURSE ---
spoke with pharmacy about dosing
--- NOTE | 2020-01-03 18:30 | PC.NURSE ---
called report to Carleen
--- NOTE | 2020-01-03 19:20 | PC.NURSE ---
received report from lizzie ruiz. cardene drip stopped at this time per md order. no acute distress. taken to floor via and lizzie rainey
--- NOTE | 2020-01-03 19:23 | PC.NURSE ---
patient up to floor via wheelchair.
--- NOTE | 2020-01-03 21:31 | HMH.HP ---
*Admission Date: 01/03/20 *Chief complaint: numbness *History of present illness: this wf presented to the ed - t advises around 12:30 the whole left side of her body went numb and felt like she couldnt feel her own skin. Advises it lasted about a hour, denies any other symptoms besides feeling dizzy with this episode. Pt has no complaints at arrival to the ED 54-year-old female presenting to the emergency department with numbness on the left side of her body. She has had symptoms intermittently over the last month. Today symptoms started around 1 PM and lasted for 90 minutes. She felt a tingling sensation in her arm and her leg. They felt heavy. No numbness or weakness in her face. No speech or vision difficulties. She takes medication for hypertension, says her blood pressure has been elevated recently. Denies current headache, neck pain, chest pain, shortness of breath. n summary this is a 54-year-old female presenting to the emergency department with numbness and tingling in her left arm and left leg. Patient is currently asymptomatic on arrival. Last known normal was 4 hours ago, symptoms lasted for 90 minutes. On arrival she is significantly hypertensive with systolic blood pressure 240, diastolic greater than 100. She is taking lisinopril HCTZ. No other medications. Differential diagnoses include acute ischemic stroke, transient ischemic attack, hypertensive emergency. Plan to obtain CBC, CMP, chest x-ray, EKG, troponin profile, CT angiography of the head and neck. Patient given 5 mg of nicardipine over 1 hour. Laboratory results are generally unremarkable. No coronary ischemia. Renal function adequate. CT of the head and neck shows no acute ischemia or stenosis. It does see COPD in the lung apices. On reassessment patient's blood pressure has decreased by 20%. Overall presentation is most consistent with hypertensive emergency. Patient would benefit from admission and more aggressive treatment of hypertension. pt was admitted for eval and treatment - [facility] History I have reviewed the patient's past medical history: Yes Medical History: Reports:: Anxiety, Chronic Obstructive Pulmonary Disease (COPD), Depression, Gastroesophageal Reflux Disease(GERD), Hyperlipidemia, Hypertension Denies:: Cancer, Diabetes Mellitus Type 1, Diabetes Mellitus Type 2, Internal Pacemaker, MRSA, Seizures *Have you ever received a pneumonia vaccine?: No *Have you received a flu vaccine this season?: No Other Medical History: Reports: Anemia, Arthritis, Hypothyroidism, Thyroid Disease. Denies: Blood Transfusion Reaction Laterality Cases: Right: Carpal Tunnel Release Other Surgeries: Yes: No Previous Surgery, BSO, Colonoscopy, EGD, Hysterectomy-Total, Hysterectomy-Partial, Tubal Ligation, Other. No: Pacemaker Amputation: No Fractures: No - *Social History Last grade of school completed: Some college Smoking Status: Current every day smoker Tobacco Type: cigarettes # Packs/Day (cigarettes): 1 #Yrs smoked (if former smoker): 36 Alcohol Intake: never Alcohol Intake Frequency:: holidays/special occasions only Substance Use Type: denies use *Occupational Status:: employed Housing: house Household Members: spouse *Travel in the last 8 weeks: None - Psychiatric History Pschychiatric History:: Reports:: Anxiety, Depression Family Hx:: Anemia, Asthma, Bleeding Disorder, Cancer, Diabetes, Heart Attack, Hyperlipidemia, Hypertension, Kidney Disease, Stroke, Substance abuse, Alcoholism, Mental illness [employer]ER history: Tubal Ligation Review of Systems - Review of Systems Review of systems:: pertinent systems reviewed and negative unless documented below - Constitutional Denies fatigue, Denies fever(s) - Eyes Denies change in vision - ENT Denies nasal congestion, Denies pain with swallowing - *Cardiovascular Denies chest pain at rest, Denies shortness of breath - *Respiratory Denies cough - *Gastrointestinal Denies abdominal pain - *Genitouri
[2020-01-04] VITALS (10 sets, daily range): BP systolic 134–160; BP diastolic 67–93; PULSE 61–78; RESP 14–17; TEMP 36.7–36.8; O2SAT 94–98
--- NOTE | 2020-01-04 02:26 | PC.NURSE ---
She reports that she presented to the ER after having some numbness to her left extremities that felt different today. She reports that she works at [employer] and went to see the nurse there that stated she felt like she should be seen by a physician. She reports that she called her PCP where he suggested she be seen in the ER for evaluation. She was diagnosed with hypertensive emergency and placed on a cardene gtt for one hour. Her BP decreased to WNL. She reports that her blood pressure is never that low and stated that she felt dizzy. She has been encouraged to call out for assistance to the [facility] and has done so appropriately. She is A&Ox4. Lung sounds with scattered rhonchi in the posterior. She reports that she has been smoking 1PPD for the past 39 years. She continues on RA and has a nicotine patch on her RUE. Normal bowel sounds. NSR on telemetry.
--- NOTE | 2020-01-04 05:12 | PC.NURSE ---
She is awake and ambulated to the bathroom at this time with steady gait. She denies dizziness and reports that she feels great.
[2020-01-04 06:36] LABS: Chloride 100 mmol/L (98-107)
[2020-01-04 06:37] LABS: Sodium 133 mmol/L (136-145)
[2020-01-04 06:40] LABS: Blood Urea Nitrogen 11 mg/dl (7-17); Calcium 9.5 mg/dl (8.4-10.2); Carbon Dioxide 28 mmol/L (22.0-30.0); Creatinine Clearance Estimated 118 mL/min (50-200); Estimated Glomerular Filt Rate 104 ml/min (>60); GFR (African American) 126 ML/MIN (>60); Glucose 125 mg/dl (74-100)
--- NOTE | 2020-01-04 07:37 | HMH.PHAVTE ---
[facility] Pharmacy VTE Monitoring - Patient Demographics Admission date: 01/03/20 Report Date: 01/04/20 Time: 07:38 Allergies/Adverse Reactions: Patient Allergies No Known Allergies Allergy (Verified 01/03/20 19:46) Height: 1.57 m Weight: 69.808 kg Patient Problems: Current Active Problems Hypertensive emergency (Acute) Left arm numbness (Acute) Left leg numbness (Acute) - VTE Risk Labs: VTE Related Lab Results Hgb 13.4 g/dL (12.2-16.2) 01/03/20 16:10 Hct 38.3 % (37.0-47.0) 01/03/20 16:10 Plt Count 282 K/mm3 (142-424) 01/03/20 16:10 BUN 11 mg/dl (7-17) 01/04/20 06:10 Creatinine 0.60 mg/dl (0.52-1.04) 01/04/20 06:10 Estimated Creat Clear 118 mL/min (50-200) 01/04/20 06:10 VTE Score: 4 Clinical Trial Participant: No - Prophylaxis VTE Prophylaxis Ordered?: Yes Types of VTE Prophylaxis: TEDS Knee High
--- NOTE | 2020-01-04 08:06 | CA_ITS ---
APPROVED REPORT EXAM: Comprehensive 2D, Doppler, and color-flow Echocardiogram [employer]: Araceli Baker RT(R) Ht: 5 ft 2 in Wt: 153lbs BSA: 1.71 BP: 131/76 mmHg Indications: COPD, HTN, hyperlipidemia, r/o TIA 2D Dimensions LVOT 1.90 cm (M/F) 1.5-2.5 M-Mode Dimensions RVDd 2.48 cm (0.9-2.6) LVDd 4.33 cm (3.5-5.7) LVDs 3.39 cm (3.5-5.7) IVSd 0.97 cm (0.6-1.1) PWd 0.94 cm (0.6-1.1) EF (Teich) 44.20% FS 21.70% EDV (Teich) 84.40 mL ESV (Teich) 47.10 mL LV Diastology E/A Ratio 0.83 Mitral Valve MV A Velocity 87.00 (40-130 cm/s) Left Ventricle Left atrium is mildly enlarged, left ventricle is normal size, mild concentric left ventricular hypertrophy, visually estimated ejection fraction 55% with no regional wall motion abnormality, Doppler evidence of impaired LV relaxation seen. Right Ventricle Right atrium and right ventricular normal size and contractility. Aortic Valve Aortic valve is minimally thickened and fibrosed, there is no aortic stenosis or aortic insufficiency. Mitral Valve Mitral valve is grossly normal, there is mild mitral regurgitation. Tricuspid Valve Tricuspid valve grossly normal, there is mild tricuspid regurgitation, tricuspid regurgitation jet velocity is inadequate for calculation of the right ventricular systolic pressure. Pulmonic Valve Pulmonic valve is poorly visualized. Great Vessels Aortic root is normal size. Pericardium No significant pericardial effusion noted. Conclusion 1. Mildly enlarged left atrium, normal left ventricular size, mild concentric left ventricular hypertrophy, visually estimated ejection fraction 55% with no regional wall motion abnormality, Doppler evidence of impaired LV relaxation seen. 2. Mild mitral and tricuspid regurgitation. 3. No significant pericardial effusion noted. Electronically signed by : Cash Gray, 01/05/2020 10:04:03
--- NOTE | 2020-01-04 08:18 | HMH.PHAINT ---
MEDICATION RECONCILIATION COMPLETED USING EXTERNAL FILL HISTORY.
--- NOTE | 2020-01-04 10:34 | CA_ITS ---
APPROVED REPORT Assistant Cross Country Coach: Lucila Haji RVT Study Quality: Good Indications: hypertensive emergency Risk Factors Hypertension Smoking Renal Artery Doppler Origin (R) 158.7/ cm/sec Proximal (R) 162.4/ cm/sec Mid (R) 169.3/ cm/sec Distal (R) 125.3/ cm/sec Renal Aorta Ratio (R) 1.50 Segmental A. (R) 59.6/15.7 cm/sec RI: 0.73 Segmental A. Sup (R) 59.6/15.7 cm/sec Segmental A. Mid (R) 51.1/20.7 cm/sec Segmental A. Inf (R) 40.0/12.0 cm/sec Origin (L) 87.4/ cm/sec Proximal (L) 109.7/ cm/sec Mid (L) 95.9/ cm/sec Distal (L) 55.3/ cm/sec Renal Aorta Ratio (L) 0.97 Segmental A. (L) 44.9/17.7 cm/sec RI: 0.60 Segmental A. Sup (L) 32.7/12.3 cm/sec Segmental A. Mid (L) 44.9/17.7 cm/sec Segmental A. Inf (L) 39.4/20.4 cm/sec Renal Measurements Kidney Size (R) 12.1x7.1 cm Cortical Thickness (R) 1.9 cm Kidney Size (L) 8.8x5.3 cm Cortical Thickness (L) 0.5 cm Conclusion Study suggests no evidence of bilateral renal artery stenosis. Multiple cysts seen left kidney the largest measuring 1.4 cm. Left kidney is smaller in size and cortical thinning seen. Electronically signed by : Dago Jhons MD 01/04/2020 12:39:51
--- NOTE | 2020-01-04 10:36 | HMH.CNCARD ---
History of Present Illness Consult date: 01/04/20 Requesting physician: Nick Romero Consult reason: hypertension Chief complaint: left sided numbness Additional Medical History:: 1. HTN 2. HLD 3. COPD 4. tobacco user 5. pulmon htn A. echo, 08/2018, 1. Mildly enlarged left atrium, normal left ventricular size, mild concentric left ventricular hypertrophy, visually estimated ejection fraction 55% with no regional wall motion abnormality, diastolic parameters are inconclusive. 2. Mild mitral and tricuspid regurgitation, calculated right ventricular systolic pressure 33 mmHg, inferior vena cava is normal size with normal inspiratory collapse. 3. No significant pericardial effusion noted. Myoview 08/2018 shows: 1. The EKG portion of the exercise Myoview is nondiagnostic as patient did not achieve the target heart rate, patient has good exercise capacity achieved 10.1mets of workload on treadmill, the blood pressure response to exercise was adequate, there was no exercise-induced chest discomfort. 2. No scintigraphic evidence of reversible ischemia seen at this level of exercise, computer derived ejection fraction is 57% with no regional wall motion abnormality, right ventricle is normal size and contractility. History of present illness: This is a 54-year-old female who presented to the emergency department with complaints of left-sided numbness and tingling. She states that her left arm and left leg started tingling around 1 PM yesterday and lasted for approximately 90 minutes or so. The patient states that she has been having issues with high blood pressure for quite some time now and over the last month she has noticed that her blood pressure has been high. But yesterday was the first time that she had the numbness and tingling in the left side of her body which prompted her to come to the emergency department. In the emergency department her systolic blood pressure was between 220 and 240 and her diastolic blood pressure was greater than 100. She has been taking her lisinopril HCT at home but had ran out of her beta-vel and did not call the office for a refill. She denies any chest pain or pressure. She denies any shortness of breath or edema. She denies any fever, chills, nausea, vomiting, diarrhea, PND or orthopnea. She states typically with her high blood pressure she has no symptoms and yesterday was the first time that she had had the left-sided numbness. She did have a CTA of her neck and head. This showed no acute ischemic stroke and no carotid disease. Her initial troponin is negative. She did not have a second troponin completed at this time. He was treated with nicardipine in the emergency department. Her blood pressure this morning is down to the 160s systolic. She states that the numbness and tingling in the left side of her body has resolved at this time. She did have a normal stress test a year ago. [facility] History I have reviewed the patient's past medical history: Yes Medical History: Reports:: Anxiety, Chronic Obstructive Pulmonary Disease (COPD), Depression, Gastroesophageal Reflux Disease(GERD), Hyperlipidemia, Hypertension Denies:: Cancer, Diabetes Mellitus Type 1, Diabetes Mellitus Type 2, Internal Pacemaker, MRSA, Seizures *Have you ever received a pneumonia vaccine?: No *Have you received a flu vaccine this season?: No Other Medical History: Reports: Anemia, Arthritis, Hypothyroidism, Thyroid Disease. Denies: Blood Transfusion Reaction Laterality Cases: Right: Carpal Tunnel Release Other Surgeries: Yes: No Previous Surgery, BSO, Colonoscopy, EGD, Hysterectomy-Total, Hysterectomy-Partial, Tubal Ligation, Other. No: Pacemaker Amputation: No Fractures: No - *Social History Last grade of school completed: Some college Smoking Status: Current every day smoker Tobacco Type: cigarettes # Packs/Day (cigarettes): 1 #Yrs smoked (if former smoker): 36 Alcohol Intake: never Alcohol Intake Frequency:: annelise
--- NOTE | 2020-01-04 10:51 | HMH.PHAINT ---
HOME MEDICATION RECONCILIAITON COMPLETED USING LIST FROM [facility] AND PT INTERVIEW
[2020-01-04 11:38] LABS: Troponin I < 0.01 ng/ml (0.00-0.034)
--- NOTE | 2020-01-04 12:37 | HMH.DCSUM ---
General - General Admission date:: 01/03/20 Discharge date: 01/04/20 HPI HPI: this wf presented to the ed - t advises around 12:30 the whole left side of her body went numb and felt like she couldnt feel her own skin. Advises it lasted about a hour, denies any other symptoms besides feeling dizzy with this episode. Pt has no complaints at arrival to the ED 54-year-old female presenting to the emergency department with numbness on the left side of her body. She has had symptoms intermittently over the last month. Today symptoms started around 1 PM and lasted for 90 minutes. She felt a tingling sensation in her arm and her leg. They felt heavy. No numbness or weakness in her face. No speech or vision difficulties. She takes medication for hypertension, says her blood pressure has been elevated recently. Denies current headache, neck pain, chest pain, shortness of breath. n summary this is a 54-year-old female presenting to the emergency department with numbness and tingling in her left arm and left leg. Patient is currently asymptomatic on arrival. Last known normal was 4 hours ago, symptoms lasted for 90 minutes. On arrival she is significantly hypertensive with systolic blood pressure 240, diastolic greater than 100. She is taking lisinopril HCTZ. No other medications. Differential diagnoses include acute ischemic stroke, transient ischemic attack, hypertensive emergency. Plan to obtain CBC, CMP, chest x-ray, EKG, troponin profile, CT angiography of the head and neck. Patient given 5 mg of nicardipine over 1 hour. Laboratory results are generally unremarkable. No coronary ischemia. Renal function adequate. CT of the head and neck shows no acute ischemia or stenosis. It does see COPD in the lung apices. On reassessment patient's blood pressure has decreased by 20%. Overall presentation is most consistent with hypertensive emergency. Patient would benefit from admission and more aggressive treatment of hypertension. pt was admitted for eval and treatment - Hospital Course Hospital Course: pt was admitted after ed treatment and had cta of head and neck - she did well and had renal study which was ok and was seen by [facility] Chief complaint: left sided numbness Additional Medical History:: 1. HTN 2. HLD 3. COPD 4. tobacco user 5. pulmon htn A. echo, 08/2018, 1. Mildly enlarged left atrium, normal left ventricular size, mild concentric left ventricular hypertrophy, visually estimated ejection fraction 55% with no regional wall motion abnormality, diastolic parameters are inconclusive. 2. Mild mitral and tricuspid regurgitation, calculated right ventricular systolic pressure 33 mmHg, inferior vena cava is normal size with normal inspiratory collapse. 3. No significant pericardial effusion noted. Myoview 08/2018 shows: 1. The EKG portion of the exercise Myoview is nondiagnostic as patient did not achieve the target heart rate, patient has good exercise capacity achieved 10.1mets of workload on treadmill, the blood pressure response to exercise was adequate, there was no exercise-induced chest discomfort. 2. No scintigraphic evidence of reversible ischemia seen at this level of exercise, computer derived ejection fraction is 57% with no regional wall motion abnormality, right ventricle is normal size and contractility. alan is a 54-year-old female who presented to the emergency department with complaints of left-sided numbness and tingling. She states that her left arm and left leg started tingling around 1 PM yesterday and lasted for approximately 90 minutes or so. The patient states that she has been having issues with high blood pressure for quite some time now and over the last month she has noticed that her blood pressure has been high. But yesterday was the first time that she had the numbness and tingling in the left side of her body which prompted her to come to the emergency department. In the emerg
--- NOTE | 2020-01-04 14:23 | HMH.PHAINT ---
PATIENT WAS COUNSELED ON NEW MEDICATIONS: CARVEDILOL AND NICOTINE PATCHES. THE PATIENT WILL CONTINUE TAKING ALL HOME MEDICATIONS. THE PATIENT DID NOT HAVE ANY QUESTIONS. RXS SENT TO [facility].
== END 2020-01-04 15:15 | disposition home or self-care (01) ==
LOC: ER 17:51 → 2ND 01-04 06:41
PROVIDERS: Nurse Practitioner Family; Admitting Provider Internal Medicine Adolescent Medicine; Emergency Provider Emergency Medicine; PCP Emergency Medicine; Visit Provider Emergency Medicine
DX: I16.1 Hypertensive emergency (principal); G45.9 Transient cerebral ischemic attack, unspecified; I27.20 Pulmonary hypertension, unspecified; E03.9 Hypothyroidism, unspecified; Z72.0 Tobacco use; J44.9 Chronic obstructive pulmonary disease, unspecified; I10 Essential (primary) hypertension; E78.5 Hyperlipidemia, unspecified
CPT/HCPCS: 70496; 70498; 71046; 80048; 80053; 80305; 81001; 84484; 85025; 93005; 93306; 93976; 96365; 96374; 99285; G0378; Q9967

== ENCOUNTER 2020-01-07 11:28 | Emergency (ER) | payer BC, SELFPAY ==
[2020-01-07 11:30] VITALS: BP 195/102; PULSE 56; RESP 17; TEMP 36.6; O2SAT 100; BMI 28.3
--- NOTE | 2020-01-07 11:36 | ECG_ITS ---
APPROVED REPORT Exam: Resting ECG HR:58 bpm ECG Measurements Heart Rate 58 AXES DE 144 P 35 QRSd 94 QRS -18 QT 434 T 32 QTc 426 <Conclusion> Sinus bradycardia Possible Left atrial enlargement Incomplete right bundle branch block LAD Abnormal ECG Electronically signed by : David Amos, 01/09/2020 09:11:01
--- NOTE | 2020-01-07 11:36 | HMH.EDGENADL ---
ED Disposition Clinical Impression: TIA (transient ischemic attack), Essential hypertension Disposition: Home, Self-Care Condition on Discharge: Good Instructions: DI for Transient Ischemic Attack Additional Instructions: Take aspirin 81 mg/day Increase lisinopril/hydrochlorothiazide to 2 tablets a day, taken at the same time. Off work until seen in follow-up by Dr. Romero or Dr. Alvares. Call Dr. Romero's office on Thursday to arrange appointment to be seen soon as possible this coming week Return if symptoms worsen Referrals: Nick Romero MD [Primary Care Provider] - Forms: Work/School Release - Critical Care Critical Care Time: No Attestation: On 01/07/20, the high probability of a clinically significant, sudden or life threatening deterioration of the following system(s) required my full and direct attention, intervention and personal management. The time I documented below is in addition to time spent performing reported procedures but includes the following listed in this critical care notation. Medical Decision Making - Medical Records Medical records reviewed: Yes: I reviewed the patient's medical records. - Meng Inquiry Pt receiving controlled substance: No Vital Signs: 01/07/20 11:30 01/07/20 12:00 01/07/20 12:30 Temperature 97.8 F Temperature Source Oral Pulse Rate [Right] 56 L 60 61 Respiratory Rate 17 12 Blood Pressure [Right Arm] 195/102 H 181/94 H 164/91 H Blood Pressure Mean [Right Arm] 133 123 115 02 Sat by Pulse Oximetry 100 100 - Lab Data Lab results reviewed: Yes: I reviewed the patient's lab results. Lab Results 01/07/20 11:39: POC Glucose 89 01/07/20 12:05: WBC 7.0, RBC 4.24, Hgb 14.4, Hct 40.3, MCV 95.2, MCH 33.9 H, MCHC 35.6 H, RDW 13.3, Plt Count 286, MPV 8.2, Neut % (Auto) 66.4, Lymph % (Auto) 24.2, Potter % (Auto) 6.8, Eos % (Auto) 1.7, Baso % (Auto) 0.9, Neut # (Auto) 4.7, Lymph # (Auto) 1.7, Potter # (Auto) 0.5, Eos # (Auto) 0.1, Baso # (Auto) 0.1 07/25/20 12:05: PT 9.9, INR 0.96, APTT 22.5 L 01/07/20 12:05: Sodium 132 L, Potassium 4.0, Chloride 97 L, Carbon Dioxide 28, Anion Gap 11.0, BUN 12, Creatinine 0.60, Estimated Creat Clear 119, Estimated GFR 104, Est GFR ( Amer) 126, Glucose 90, Calcium 9.9, Troponin I < 0.01 01/07/20 12:12: Urine Color Yellow, Urine Appearance Clear, Urine pH 8.0, Ur Specific [place] 1.020, Urine Protein Negative, Urine Glucose (UA) Negative, Urine Ketones Negative, Urine Blood Negative, Urine Nitrate Negative, Urine Bilirubin Negative, Urine Urobilinogen 0.2, Ur Leukocyte Esterase Negative, Urine RBC Occasional, Urine WBC None, Ur Squamous Epith Cells Occasional, Urine Bacteria None 01/07/20 12:12: Urine Opiates Screen Negative, Urine Methadone Screen Negative, Ur Barbituates Screen Negative, Ur Phencyclidine Scrn Negative, Ur Amphetamines Screen Negative, U Benzodiazepines Scrn Negative, Urine Cocaine Screen Negative, U Marijuana (THC) Screen Negative Result diagrams: 01/07/20 12:05 01/07/20 12:05 Orders (Tests/Meds): ORDERS Category Date Time Status XR chest 2V Stat Exams 01/07/20 11:41 Taken Troponin I Q3H Lab 01/07/20 14:45 Ordered Troponin I Q3H Lab 01/07/20 17:45 Ordered - CT Data CT Scan: Head Time Received: 12:[address] Reviewed: Yes: I have viewed the radiologist's interpretation Findings Narrative: PROCEDURE: CT HEAD/BRAIN WO CON Patient Age:54Y CLINICAL INDICATION: stroke protocol: Left-sided numbness, weakness, chills COMPARISON: CT ANGIO HEAD from 01/03/2020 TECHNIQUE: Axial images were obtained. All CT scans at the facility use one or more dose reduction, viz: automated exposure control, ma/kV adjustment per patient size (including targeted exams where dose is matched to indication, i.e. head), or iterative reconstruction technique. FINDINGS: . No acute intracranial findings. No intracranial hemorrhage. No territorial infarct. Small vessel deep white-ma
[2020-01-07 11:40] VITALS: BMI 28.3
--- NOTE | 2020-01-07 11:40 | CT_ITS ---
PROCEDURE: CT HEAD/BRAIN WO CON Patient Age:54Y CLINICAL INDICATION: stroke protocol: Left-sided numbness, weakness, chills COMPARISON: CT ANGIO HEAD from 01/03/2020 TECHNIQUE: Axial images were obtained. All CT scans at the facility use one or more dose reduction, viz: automated exposure control, ma/kV adjustment per patient size (including targeted exams where dose is matched to indication, i.e. head), or iterative reconstruction technique. FINDINGS: . No acute intracranial findings. No intracranial hemorrhage. No territorial infarct. Small vessel deep white-matter ischemic changes. -Specifically note subtle small low-densityfocus in the deep white matter just superior to the posterior aspect right basal ganglia (axial slice 24, 25) involving the centrum semiovale white matter tracks above basal ganglia. This small low-density focus can be seen and evident on recent 01/03/2020 CTA head-no 6 appreciable change. This most consistent with a chronic small vessel deep white-matter ischemic focus. If new progressive neurological findings MRI is more sensitive for acute infarcts and could better confirm this small focus as old feature as suspected.. Note patient is smoker. Are there other vascular risk factors to contribute to small-vessel disease and 54-year-old? Also suggestion of subtle diffuse early cerebral atrophy slightly advanced for age... . No hydrocephalus.The ventricles and basal cisterns appear clear and satisfactory. .. No mass or midline shift nor mass effect. No subdural or extra-axial fluid collection is evident. Posterior fossa unremarkable. Skull intact- calvarium unremarkable appearance. .. Mastoid air cells are well developed and clear. No mastoid effusion Middle ear clear. IAC's symmetric. Nosinus air-fluid level. Visualized portions of the paranasal sinuses and orbits unremarkable. IMPRESSION: 1..NO ACUTE INTRACRANIAL FINDINGS . No hemorrhage. No territorial infarct . No Change since CT head 01/03/2020 2...Small vessel deep white-matter ischemic changes bilaterally. Most notable is a subtle small low-density focus deep white matter on right, just superior to the posterior right basal ganglia-most consistent with a chronic small vessel ischemic gliotic changes unchanged since 01/03/2020 Dictated by: Eber Blue MD 01/07/2020 12:08 Electronically signed by Eber Blue MD in [place] 01/07/2020 12:08
--- NOTE | 2020-01-07 11:41 | XR_ITS ---
PROCEDURE: XR CHEST 2V Patient Age:54Y CLINICAL HISTORY: stroke protocol. Weakness Numbness left side. Stroke protocol patient COMPARISON: CXR CHEST(2 VIEWS-NOT PORTABLE) from 06/21/2014 CT CHEST WO CON from 03/16/2019 XR CHEST 2V from 08/09/2019 XR CHEST 2V from 01/03/2020 FINDINGS: PA and lateral CXR performed Lungs are well expanded and clear with no active disease. No significant change since 01/03/2020 She he cardiomediastinal silhouette and pulmonary vascularity are within normal limits. The lungs are clear without infiltrates, suspicious nodules, or pleural effusions. No acute bony abnormalities. IMPRESSION: No acute findings. Dictated by: Eber Blue MD 01/07/2020 13:52 Electronically signed by Eber Blue MD in [place] 01/07/2020 13:52
--- NOTE | 2020-01-07 11:41 | PC.NURSE ---
Patient to ct scan.
[2020-01-07 11:42] LABS: POC Glucose,Bedside 89 (70-110)
--- NOTE | 2020-01-07 11:45 | PC.NURSE ---
Addendum entered by Adriana Lund RN 01/07/20 11:49: duplicate Original Note: Pt to CT at this time
[2020-01-07 12:00] VITALS: BP 181/94; PULSE 60
[2020-01-07 12:14] LABS: Basophils # 0.1 K/mm3 (0-0.2); Basophils % 0.9 % (0.1-2.0); Eosinophils # 0.1 K/mm3 (0.0-0.4); Eosinophils % 1.7 % (0.1-12.0); Hematocrit 40.3 % (37.0-47.0); Hemoglobin 14.4 g/dL (12.2-16.2); Lymphocytes # 1.7 K/mm3 (0.7-4.5); Lymphocytes % 24.2 % (10-50); Mean Corpuscular HGB Conc 35.6 g/dL (31.8-35.4); Mean Corpuscular Hemoglobin 33.9 pg (27.0-31.2); Mean Corpuscular Volume 95.2 fl (81-99); Mean Platelet Volume 8.2 fl (7.4-10.4); Monocytes # 0.5 K/mm3 (0.1-1.0); Monocytes % 6.8 % (1.7-9.3); Neutrophils # 4.7 K/mm3 (1.8-7.8); Neutrophils % 66.4 % (37.0-80.0); Platelet Count 286 K/mm3 (142-424); Red Blood Count 4.24 M/mm3 (4.20-5.40); Red Cell Distribution Width 13.3 % (11.5-17.5)
[2020-01-07 12:17] LABS: Microscopic, Urine URINE MICROSCOPIC (MICROSCOPIC)
[2020-01-07 12:18] LABS: Appearance,Urine CLEAR (Clear); Bilirubin,Urine Negative (Negative); Blood, Urine Negative (Negative); Color,Urine YELLOW (Yellow); Glucose,Urine (UA) Negative (Negative); Ketones,Urine Negative (Negative); Leukocyte Esterase,Urine Negative (Negative); Nitrate,Urine Negative (Negative); Protein,Urine Negative (Negative); Urobilinogen,Urine 0.2 EU/dl (0.2)
[2020-01-07 12:18] LABS: Chloride 97 mmol/L (98-107); Sodium 132 mmol/L (136-145)
[2020-01-07 12:21] LABS: Blood Urea Nitrogen 12 mg/dl (7-17); Calcium 9.9 mg/dl (8.4-10.2); Carbon Dioxide 28 mmol/L (22.0-30.0); Creatinine Clearance Estimated 119 mL/min (50-200); Estimated Glomerular Filt Rate 104 ml/min (>60); GFR (African American) 126 ML/MIN (>60); Glucose 90 mg/dl (74-100)
[2020-01-07 12:25] LABS: Activated Partial Thrombo Time 22.5 seconds (23.6-34.0); INR 0.96 (0.9-1.1); Prothrombin Time 9.9 seconds (9.4-11.8)
[2020-01-07 12:27] LABS: RBC,Urine Occasional #/hpf (0-3); Squamous Epithelial Cell,Urine Occasional #/hpf (0-5)
[2020-01-07 12:30] VITALS: BP 164/91; PULSE 61; RESP 12; O2SAT 100
[2020-01-07 12:30] LABS: Amphetamine/Metha Screen,Urine Negative ng/ml (<1000)
[2020-01-07 12:31] LABS: Barbiturates Screen,Urine Negative ng/ml (<200); Benzodiazepines Screen,Urine Negative ng/ml (<200)
[2020-01-07 12:32] LABS: Cannabinoid Screen,Urine Negative ng/ml (<50)
[2020-01-07 12:33] LABS: Cocaine Screen,Urine Negative ng/ml (<300); Methadone Screen,Urine Negative ng/ml (<300)
[2020-01-07 12:34] LABS: Opiate Screen,Urine Negative ng/ml (<300)
[2020-01-07 12:35] LABS: Phencyclidine Screen,Urine Negative ng/ml (<25)
[2020-01-07 12:36] LABS: Troponin I < 0.01 ng/ml (0.00-0.034)
--- NOTE | 2020-01-07 13:03 | PC.NURSE ---
Dr. Johnston speaking with Dr. Ling.
[2020-01-07 13:44] VITALS: BP 189/99; PULSE 65; RESP 18; TEMP 36.8; O2SAT 98
== END 2020-01-07 13:44 | disposition home or self-care (01) ==
PROVIDERS: Emergency Provider Emergency Medicine; PCP Emergency Medicine
DX: G45.8 Other transient cerebral ischemic attacks and related syndromes (principal); I10 Essential (primary) hypertension; F41.8 Other specified anxiety disorders; J44.9 Chronic obstructive pulmonary disease, unspecified; K21.9 Gastro-esophageal reflux disease without esophagitis; E78.5 Hyperlipidemia, unspecified; Z90.79 Acquired absence of other genital organ(s); Z79.899 Other long term (current) drug therapy
CPT/HCPCS: 70450; 71046; 80048; 80305; 81001; 82962; 84484; 85025; 85610; 85730; 93005; 99284

== ENCOUNTER → 2020-01-20 14:11 | Outpatient (CLI) | payer BC, SELFPAY ==
--- NOTE | 2020-01-20 14:11 | MR_ITS ---
PROCEDURE: MR HEAD/BRAIN WO CON CLINICAL INDICATION: recurrent tia HYPERTENSION. NUMBNESS ON LT SIDE OF BODY [id number]. HEADACHE AND DIZZINESS. PRIOR CT 01/07/2020 COMPARISON: No exams were available for comparison TECHNIQUE: Routine multiplanar multi echo sequences are performed without gadolinium enhancement. FINDINGS: No midline shift, mass effect, intracranial hemorrhage, hydrocephalus, or acute infarction is evident. The cerebellopontine angles, cerebellum, and brainstem have an unremarkable appearance. There is mild generalized motion artifact which somewhat obscures fine detail. There is an old lacunar infarction in the right putamen posteriorly. Scattered periventricular and subcortical T2 white matter hyperintensity is noted. The pituitary, optic chiasm, corpus callosum, and craniocervical junction have an unremarkable appearance. There is mild mucosal thickening of the ethmoid sinuses. No mastoid effusion. IMPRESSION: 1. No acute intracranial findings. 2. Scattered periventricular and subcortical T2 white matter hyperintensities nonspecific but may be due to ischemic gliotic change from microvascular disease. There is an old small lacunar infarction in the right putamen posteriorly Dictated b Dago Johns MD 01/21/2020 11:54 Dago Johns MD in [place] 01/21/2020 11:54
== END ==
PROVIDERS: PCP Emergency Medicine; Visit Provider Family Medicine
DX: G45.9 Transient cerebral ischemic attack, unspecified (principal)
CPT/HCPCS: 70551

== ENCOUNTER 2020-04-20 09:40 | Emergency (ER) | payer BC, SELFPAY ==
[2020-04-20 09:50] VITALS: BP 142/81; PULSE 68; RESP 20; TEMP 37; O2SAT 96; BMI 30.4
--- NOTE | 2020-04-20 10:03 | XR_ITS ---
PROCEDURE: XR CHEST 2V CLINICAL HISTORY: cough Cough, shortness of air COMPARISON: CT CT CHEST WO CON from 03/16/2019 CR XR CHEST 2V from 08/09/2019 CR XR CHEST 2V from 01/03/2020 CR XR CHEST 2V from 01/07/2020 FINDINGS: The cardiomediastinal silhouette and pulmonary vascularity are within normal limits. No lobar consolidation or collapse is evident. There is patchy subsegmental areas of ground-glass increased density in the upper lobes on both sides suggesting mild airspace disease. No acute bony abnormalities. IMPRESSION: Patchy infiltrates in the upper lobes Dictated by: Dago Johns MD 04/20/2020 10:51 Dago Johns MD in [place] 04/20/2020 10:51
--- NOTE | 2020-04-20 10:56 | HMH.EDUTC ---
[facility] Disposition Clinical Impression: Pneumonia Qualifiers: Pneumonia type: due to unspecified organism Laterality: bilateral Lung location: upper lobe of lung Qualified Code(s): J18.9 - Pneumonia, unspecified organism Disposition: Home, Self-Care Condition on Discharge: Good Instructions: Pneumonia-Adult Additional Instructions: Drink plenty of fluids. Take tylenol for pain or fever. Take the medications as directed. Follow up with your regular doctor. GO TO THE ER FOR ANY WORSENING SYMPTOMS The cough medication (promethazine dm) will make you drowsy, so don't drive or operate heavy machinery after taking it. Prescriptions: Promethazine/Dextromethorphan [Promethazine-Dm Syrup] 5 ml PO Q6HP PRN #240 syrup PRN Reason: Cough Transmission Status: Received by [facility] Amoxicillin/Potassium Clav [Augmentin 875-125 Tablet] 1 tab PO Q12H 10 Days #20 tab Transmission Status: Received by [facility] methylPREDNISolone [Medrol] 4 mg PO DIRECTED 6 Days #21 tab.ds.pk Transmission Status: Received by [facility] Azithromycin [Z-Juan Manuel 250mg Tab*] 250 mg PO UD DOSE PK #6 tab Transmission Status: Received by [facility] Referrals: Nick Romero MD [Primary Care Provider] - Forms: Work/School Release Medical Decision Making - Medical Records Medical records reviewed: No: I reviewed the patient's medical records. - Meng Inquiry Pt receiving controlled substance: No Vital Signs: 04/20/20 09:50 04/20/20 11:18 Temperature 98.6 F 98.6 F Temperature Source Oral Pulse Rate 68 Pulse Rate [Left Brachial] 68 Respiratory Rate 20 20 Blood Pressure 142/81 H Blood Pressure [Left Arm] 142/81 H Blood Pressure Mean [Left Arm] 101 Blood Pressure Source [Left Arm] Automatic Cuff Blood Pressure Position [Left Arm] Sitting 02 Sat by Pulse Oximetry 96 Oxygen Delivery Method Room Air Orders (Tests/Meds): ED MEDICATIONS Discontinued Medications Generic Name Dose Route Start Last Admin Trade Name Freq PRN Reason Stop Dose Admin Ceftriaxone Sodium 1 gm 04/20/20 10:55 04/20/20 11:05 Ceftriaxone 1gm Vial IM 04/20/20 10:56 1 gm ONCE ONE Administration Protocol Lidocaine HCl 0 ml 11/06/20 10:55 04/20/20 11:05 Lidocaine 1% 5ml Pf Vial IM 04/20/20 10:56 2.1 ml ONCE ONE Administration ORDERS Category Date Time Status Covid-19 Nasal PCR Sendout [facility] 04/20/20 11:00 Received - Radiology Data #1 Image(s): Chest Image Reviewed: Yes I reviewed the patient's radiology image, Yes I have reviewed radiologist's interpretation Preliminary Findings: Abnormal PROCEDURE: XR CHEST 2V CLINICAL HISTORY: cough Cough, shortness of air COMPARISON: CT CT CHEST WO CON from 03/16/2019 CR XR CHEST 2V from 08/09/2019 CR XR CHEST 2V from 01/03/2020 CR XR CHEST 2V from 01/07/2020 FINDINGS: The cardiomediastinal silhouette and pulmonary vascularity are within normal limits. No lobar consolidation or collapse is evident. There is patchy subsegmental areas of ground-glass increased density in the upper lobes on both sides suggesting mild airspace disease. No acute bony abnormalities. IMPRESSION: Patchy infiltrates in the upper lobes Dictated by: Dago Johns MD 04/20/2020 10:51 Dago Johns MD in [place] 04/20/2020 10:51 [facility] HPI - General Stated complaint: soa Time Seen by Provider: 04/20/20 10:00 Mode of Arrival: Ambulatory Source of Information: Patient Limitations: No Limitations Description of Symptoms (Recalled from Triage Doc. by RN): PATIENT STATES THAT SHE WAS RECENTLY DIAGNOSED WITH AN URI AND GIVEN STEROIDS. SHE REPORTS THAT LAST NIGHT AT WORK SHE BECAMES SOA, WHICH LASTED ALL NIGHT. SHE SAYS TODAY SHE FEELS ROUGH HEENT Symptoms (Recalled from RN notes): No Resp Symptoms (Recalled from RN notes): Yes Skin Symptoms (Recalled from RN notes):
[2020-04-20 11:18] VITALS: BP 142/81; PULSE 68; RESP 20; TEMP 37; O2SAT 96
[2020-04-21 16:13] LABS: Covid-19 Nasal PCR Sendout Lex Not Detected
== END 2020-04-20 11:22 | disposition home or self-care (01) ==
PROVIDERS: Emergency Provider Nurse Practitioner Family; PCP Emergency Medicine
DX: Z20.828 Contact with and (suspected) exposure to other viral communicable diseases (principal); J18.9 Pneumonia, unspecified organism; J44.9 Chronic obstructive pulmonary disease, unspecified; F41.8 Other specified anxiety disorders; K21.9 Gastro-esophageal reflux disease without esophagitis; E78.5 Hyperlipidemia, unspecified; I10 Essential (primary) hypertension; E03.9 Hypothyroidism, unspecified; F17.210 Nicotine dependence, cigarettes, uncomplicated; Z79.899 Other long term (current) drug therapy
CPT/HCPCS: 71046; 96372; 99202; U0004

== ENCOUNTER 2020-06-19 14:25 | Emergency (ER) | payer BC, SELFPAY ==
[2020-06-19 15:25] VITALS: BP 141/89; PULSE 89; RESP 19; TEMP 37.1; O2SAT 98; BMI 32.9
--- NOTE | 2020-06-19 16:08 | HMH.EDUTC ---
[facility] [place] Disposition Clinical Impression: Spasm of muscle of lower back Disposition: Home, Self-Care Condition on Discharge: Good Instructions: Low Back Pain, DI for Low Back Pain, Prednisone, Cyclobenzaprine Additional Instructions: *Ibuprofen abdullahi 6 hours with meal as needed for pain/inflammation if your doctor has told you that you can take it *Not additional anti-inflammatory like motrin, aleve, advil with the above amount of ibuprofen. You can still take Tylenol every 4 hours as needed if you need something else for pain *Ice 20 minutes every 2 hours for the first 48 hours after the initial injury followed by moist heat every 20 minutes 3-4 times a day to affected area *Muscle relaxer every 8 hours as needed for muscle spasms but remember, it WILL cause drowsiness You cannot take it and drive, operate machinery or care for small children. *Keep this area active, no movement leads to more stiffness, However take it easy and avoid heavy lifting pushing or pulling *Follow up with you family doctor if no improvement for further treatment Follow up with Family Doctor if no improvement or any worsening of symptoms Straight to the ER if any loss of Control of bowel or bladder or any life threatening syptoms Prescriptions: Cyclobenzaprine HCl [Flexeril 10mg tablet] 10 mg PO TID PRN #15 tab PRN Reason: Muscle Spasm Transmission Status: Pending to [facility] predniSONE [Prednisone 5mg Tab Dose-Pack] 5 mg PO UD DOSE PK 6 Days #21 pack Transmission Status: Pending to [facility] Referrals: Nick Romero MD [Primary Care Provider] - As needed Forms: Work/School Release Time of Disposition: 16:24 Medical Decision Making - Meng Inquiry Pt receiving controlled substance: No Meng was queried for this patient: No Vital Signs: 06/19/20 15:25 Temperature 98.7 F Temperature Source Oral Pulse Rate [Right Brachial] 89 Respiratory Rate 19 Blood Pressure [Right Arm] 141/89 H Blood Pressure Mean [Right Arm] 106 Blood Pressure Source [Right Arm] Automatic Cuff Blood Pressure Position [Right Arm] Sitting 02 Sat by Pulse Oximetry 98 Oxygen Delivery Method Room Air Medical Decision Narrative: Discussed and recommended Lspine xray and patient denies falling or known injury reports spasm like pain States that she will take oral steriods and muscle relaxer and if no improvement she will follow up with PCP and get xray [facility] [place] HPI - General Stated complaint: lower back pain no ao Time Seen by Provider: 06/19/20 15:50 Mode of Arrival: Ambulatory Source of Information: Patient Limitations: No Limitations Description of Symptoms (Recalled from Triage Doc. 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 States that she continued to work and as she got down the pain was worse States that now she has been having spasm like pain on left lower back area that radiates into left buttock area and left leg at times Denies falling denies known injury Denies loss of control of bowel or bladder - Related Data Home Medications Medication Instructions Recorded Confirmed aspirin 81 mg tablet,delayed 81 mg PO DAILY 01/13/20 04/10/20 release Previous Rx's Medication Instructions Recorded cholecalciferol (vitamin D3) 25 1,000 unit PO DAILY #90 cap 12/12/19 mcg (1,000 unit) capsule amlodipine 5 mg tablet 5 mg PO DAILY #90 tab 01/13/20 rosuvastatin 20 mg tablet 20 mg PO DAILY #90 tab 01/13/20 carvedilol 25 mg tablet 25 mg PO BID #180 tab 02/10/20 ergocalciferol (vitamin D2) 1,250 50,000 unit PO WEEK
[2020-06-19 16:26] VITALS: BP 141/89; PULSE 89; RESP 19; TEMP 37.1; O2SAT 98
== END 2020-06-19 16:32 | disposition home or self-care (01) ==
PROVIDERS: Emergency Provider Nurse Practitioner; PCP Emergency Medicine
DX: M62.830 Muscle spasm of back (principal); J44.9 Chronic obstructive pulmonary disease, unspecified; F41.8 Other specified anxiety disorders; K21.9 Gastro-esophageal reflux disease without esophagitis; I10 Essential (primary) hypertension; E78.5 Hyperlipidemia, unspecified; E03.9 Hypothyroidism, unspecified; F17.210 Nicotine dependence, cigarettes, uncomplicated; Z79.899 Other long term (current) drug therapy
CPT/HCPCS: 99202; G0463

== ENCOUNTER 2020-08-10 09:13 | Emergency (ER) | payer BC, SELFPAY ==
[2020-08-10 09:32] VITALS: BP 126/71; PULSE 64; RESP 17; TEMP 36.8; O2SAT 97; BMI 29.9
--- NOTE | 2020-08-10 09:58 | HMH.EDUTC ---
[facility] [place] Disposition Clinical Impression: Left sciatic nerve pain Bilateral shoulder pain Qualifiers: Chronicity: acute Qualified Code(s): M25.511 - Pain in right shoulder; M25.512 - Pain in left shoulder Disposition: Home, Self-Care Condition on Discharge: Good Instructions: DI for Back Pain With Sciatica Additional Instructions: Follow up with PCP if not improving Prescriptions: methylPREDNISolone [Medrol 4mg tab] 4 mg PO DIRECTED #21 tab Transmission Status: Pending to [facility] Referrals: Nick Romero MD [Primary Care Provider] - Time of Disposition: 10:04 Medical Decision Making - Meng Inquiry Pt receiving controlled substance: No Vital Signs: 08/10/20 09:32 Temperature 98.3 F Temperature Source Oral Pulse Rate [Right Brachial] 64 Respiratory Rate 17 Blood Pressure [Right Arm] 126/71 Blood Pressure Mean [Right Arm] 89 Blood Pressure Source [Right Arm] Automatic Cuff Blood Pressure Position [Right Arm] Sitting 02 Sat by Pulse Oximetry 97 Oxygen Delivery Method Room Air [facility] [place] HPI - General Stated complaint: shoulder pain and left hip, unknown origin Time Seen by Provider: 08/10/20 09:58 Mode of Arrival: Ambulatory Limitations: No Limitations Description of Symptoms (Recalled from Triage Doc. by RN): Pain in shoulders, joints and in left hip x3 days. HEENT Symptoms (Recalled from RN notes): No Resp Symptoms (Recalled from RN notes): No Skin Symptoms (Recalled from RN notes): No MS Symptoms (Recalled from RN notes): Yes Functional Status (Recalled from RN notes): wnl - History of Present Illness Provider Complaint: Patient has had pain in bilateral shoulders and left hip X 2 days. Feels sore/achy deep inside. Denies muscle pain. No fever. No trauma or injury. Has had problems with left shoulder previously and received joint injection by Dr Powers that helped,but that was several years ago. She lifts 35-50 pounds at work frequently. She did slip on ice last week but did not fall down. Pain radiates from left hip down into toes and makes leg and foot numb. Onset (ago): day(s) (2) Location: left, right, upper extremity, lower extremity Quality: aching Consistency: constant Associated symptoms: denies other symptoms Treatments prior to arrival: none - Related Data Home Medications Medication Instructions Recorded Confirmed aspirin 81 mg tablet,delayed 81 mg PO DAILY 01/13/20 07/24/20 release clopidogrel 75 mg tablet 75 mg PO DAILY tab 08/02/20 lisinopril 20 1 tab PO DAILY tab 08/02/20 mg-hydrochlorothiazide 25 mg tablet Previous Rx's Medication Instructions Recorded cholecalciferol (vitamin D3) 25 1,000 unit PO DAILY #90 cap 12/12/19 mcg (1,000 unit) capsule rosuvastatin 20 mg tablet 20 mg PO DAILY #90 tab 01/13/20 carvedilol 25 mg tablet 25 mg PO BID #180 tab 02/10/20 ergocalciferol (vitamin D2) 1,250 50,000 unit PO WEEKLY #12 cap 03/15/20 mcg (50,000 unit) capsule levothyroxine 150 mcg tablet 150 mcg PO DAILY #90 tab 03/15/20 loratadine 10 mg tablet 10 mg PO DAILY #30 tab 04/10/20 Cyclobenzaprine HCl [Flexeril 10mg 10 mg PO TID PRN #15 tab 06/19/20 tablet] fluoxetine 20 mg capsule 20 mg PO HS #30 cap 06/22/20 fluoxetine 40 mg capsule 40 mg PO HS #30 cap 06/22/20 amlodipine 10 mg tablet 10 mg PO DAILY #30 tab 07/24/20 methylPREDNISolone [Medrol 4mg 4 mg PO DIRECTED #21 tab 08/10/20 tab] Allergies Allergy/AdvReac Type Severity Reaction Status Date / Time No Known Allergies Allergy Verified 08/10/20 09:37 - Worker's Comp Is this a Worker's Comp case?: No [facility] History - Hepatitis A Screen Drug use history?: No High risk sexual behaviors?: No History of sexually transmitted infection?: No Currently employed?: No Childcare worker?: No Do you have indoor plumbing?: Yes Do you have electricity?: Yes Attestation statement:: This patient has been screened for Hepatitis A risk factors. I have reviewed the
[2020-08-10 10:22] VITALS: BP 149/96; PULSE 86; RESP 18; TEMP 36.9; O2SAT 98
== END 2020-08-10 10:23 | disposition home or self-care (01) ==
PROVIDERS: Emergency Provider Physician Assistant; PCP Emergency Medicine
DX: M54.31 Sciatica, right side (principal); M54.32 Sciatica, left side; M25.511 Pain in right shoulder; M25.512 Pain in left shoulder; J44.9 Chronic obstructive pulmonary disease, unspecified; E78.5 Hyperlipidemia, unspecified; I10 Essential (primary) hypertension; E03.9 Hypothyroidism, unspecified; Z79.899 Other long term (current) drug therapy; F17.210 Nicotine dependence, cigarettes, uncomplicated
CPT/HCPCS: 96372; 99202; G0463; J1040

== ENCOUNTER → 2020-08-27 11:27 | Outpatient (CLI) | payer BC, SELFPAY ==
[2020-08-27 12:25] VITALS: PULSE 69; PULSE 72
== END ==
PROVIDERS: PCP Nurse Practitioner Family; Visit Provider Nurse Practitioner Family
DX: R06.02 Shortness of breath (principal)
CPT/HCPCS: 94060; 94618; 94640; 94726; 94729

== ENCOUNTER 2020-09-07 11:53 | Emergency (ER) | payer BC, SELFPAY ==
[2020-09-07 11:55] VITALS: BP 144/83; PULSE 59; RESP 20; TEMP 36.7; O2SAT 95; BMI 29.9
--- NOTE | 2020-09-07 12:35 | HMH.EDPSYCH ---
ED Disposition Clinical Impression: Suicidal ideation Disposition: Xfer Psychiatric Hosp Condition on Discharge: Good Instructions: DI for Suicidal Ideation-Adult - Critical Care Critical Care Time: No Attestation: On 09/07/20, the high probability of a clinically significant, sudden or life threatening deterioration of the following system(s) required my full and direct attention, intervention and personal management. The time I documented below is in addition to time spent performing reported procedures but includes the following listed in this critical care notation. Medical Decision Making - Medical Records Medical records reviewed: Yes: I reviewed the patient's medical records. - Meng Inquiry Pt receiving controlled substance: No Vital Signs: 09/07/20 11:55 Temperature 98.0 F Temperature Source Oral Pulse Rate [Left Radial] 59 L Respiratory Rate 20 Blood Pressure [Right Arm] 144/83 H Blood Pressure Mean [Right Arm] 103 Blood Pressure Source [Right Arm] Automatic Cuff Blood Pressure Position [Right Arm] Sitting 02 Sat by Pulse Oximetry 95 Oxygen Delivery Method Room Air - Lab Data Lab results reviewed: Yes: I reviewed the patient's lab results. Lab Results 09/07/20 13:06: WBC 4.8, RBC 3.99 L, Hgb 12.9, Hct 39.2, MCV 98.2, MCH 32.3 H, MCHC 32.9, RDW 14.3, Plt Count 240, MPV 7.8, Neut % (Auto) 59.2, Lymph % (Auto) 31.0, Island % (Auto) 6.1, Eos % (Auto) 3.1, Baso % (Auto) 0.5, Neut # (Auto) 2.8, Lymph # (Auto) 1.5, Island # (Auto) 0.3, Eos # (Auto) 0.2, Baso # (Auto) 0.0 09/07/20 13:06: Sodium 131 L, Potassium 3.3 L, Chloride 100, Carbon Dioxide 25, Anion Gap 9.3, BUN 13, Creatinine 0.70, Estimated Creat Clear 108, Estimated GFR 87, Est GFR ( Amer) 106, Glucose 93, Calcium 9.6, Total Bilirubin 0.4, AST 28, ALT 23, Alkaline Phosphatase 95, Total Protein 6.5, Albumin 4.1, Globulin 2.4, Albumin/Globulin Ratio 1.7, Salicylates < 1.0 L, Acetaminophen < 10 L 09/07/20 13:06: Plasma/Serum Alcohol < 10 09/07/20 13:06: SARS-CoV-2 IgG Ab (Rapid) Negative, SARS-CoV-2 IgM Ab (Rapid) Negative 09/07/20 14:26: Urine Color Yellow, Urine Appearance Clear, Urine pH 7.0, Ur Specific [place] 1.015, Urine Protein Negative, Urine Glucose (UA) Negative, Urine Ketones Negative, Urine Blood Negative, Urine Nitrate Negative, Urine Bilirubin Negative, Urine Urobilinogen 0.2, Ur Leukocyte Esterase Negative, Urine RBC None, Urine WBC None, Ur Squamous Epith Cells 5-10, Urine Bacteria None 09/07/20 14:26: Urine Opiates Screen Negative, Urine Methadone Screen Negative, Ur Barbituates Screen Negative, Ur Phencyclidine Scrn Negative, Ur Amphetamines Screen Negative, U Benzodiazepines Scrn Negative, Urine Cocaine Screen Negative, U Marijuana (THC) Screen Negative 09/07/20 14:26: Urine HCG, Qual Negative Result diagrams: 09/07/20 13:06 09/07/20 13:06 Medical Decision Narrative: Patient medically cleared for psychiatric evaluation. She is accepted at [facility] and will be going there for evaluation. Psych HPI - General Stated Complaint: possible psychiatric breakdown Time Seen by Provider: 09/07/20 12:35 Mode of Arrival: Ambulatory Source of Information: Patient Limitations: No Limitations - History of Present Illness HPI Narrative: This is a 54-year-old female with a past medical history significant for hypertension, depression currently on Prozac who presents to the emergency department for suicidal ideation for 3 years, worse today with thoughts of cutting herself. She has never tried to hurt her self before, but feels like everything has come to ahead today. She called her therapist, Pina Gomez, who recommended that she present to the emergency room. She has been taking her medication as prescribed and denies any acute illnesses. She denies any attempts to hurt herself at this time, but is concerned that she might actually move forward with suicide. - Related Data Home Medications Medication Instructions Dial[place]
--- NOTE | 2020-09-07 12:40 | PC.NURSE ---
Contacted lab about labs needing drawn.
[2020-09-07 13:20] LABS: Blood Urea Nitrogen 13 mg/dl (7-17); Creatinine Clearance Estimated 108 mL/min (50-200); Estimated Glomerular Filt Rate 87 ml/min (>60); GFR (African American) 106 ML/MIN (>60)
[2020-09-07 13:21] LABS: Alanine Aminotransferase 23 U/L (12-78); Albumin Level 4.1 g/dl (3.5-5.0); Albumin/Globulin Ratio 1.7 (1.1-1.8); Alkaline Phosphatase 95 U/L (38-126); Aspartate Amino Transferase 28 U/L (14-36); Bilirubin,Total 0.4 mg/dl (0.2-1.3); Calcium 9.6 mg/dl (8.4-10.2); Carbon Dioxide 25 mmol/L (22.0-30.0); Globulin 2.4 g/dL (1.3-3.2); Glucose 93 mg/dl (74-100); Total Protein,Serum 6.5 g/dl (6.3-8.2)
[2020-09-07 13:22] LABS: Acetaminophen < 10 ug/ml (10-30); Salicylate < 1.0 mg/dL (2.0-20.0)
[2020-09-07 13:25] LABS: Anion Gap 9.3 mEq/L (5-15); Chloride 100 mmol/L (98-107); Potassium 3.3 mmoL/L (3.5-5.1); Sodium 131 mmol/L (136-145)
[2020-09-07 13:33] LABS: Basophils % 0.5 % (0.1-2.0); Eosinophils # 0.2 K/mm3 (0.0-0.4); Eosinophils % 3.1 % (0.1-12.0); Hematocrit 39.2 % (37.0-47.0); Hemoglobin 12.9 g/dL (12.2-16.2); Lymphocytes # 1.5 K/mm3 (0.7-4.5); Mean Corpuscular HGB Conc 32.9 g/dL (31.8-35.4); Mean Corpuscular Hemoglobin 32.3 pg (27.0-31.2); Mean Corpuscular Volume 98.2 fl (81-99); Mean Platelet Volume 7.8 fl (7.4-10.4); Monocytes # 0.3 K/mm3 (0.1-1.0); Monocytes % 6.1 % (1.7-9.3); Neutrophils # 2.8 K/mm3 (1.8-7.8); Neutrophils % 59.2 % (37.0-80.0); Platelet Count 240 K/mm3 (142-424); Red Blood Count 3.99 M/mm3 (4.20-5.40); Red Cell Distribution Width 14.3 % (11.5-17.5); White Blood Count 4.8 K/mm3 (4.8-10.8)
[2020-09-07 13:37] LABS: Ethyl Alcohol < 10 mg/dl (0-10)
[2020-09-07 14:37] LABS: Microscopic, Urine URINE MICROSCOPIC (MICROSCOPIC)
[2020-09-07 14:39] LABS: Appearance,Urine CLEAR (Clear); Bilirubin,Urine Negative (Negative); Blood, Urine Negative (Negative); Color,Urine YELLOW (Yellow); Glucose,Urine (UA) Negative (Negative); Ketones,Urine Negative (Negative); Leukocyte Esterase,Urine Negative (Negative); Nitrate,Urine Negative (Negative); Protein,Urine Negative (Negative); Specific Gravity, Urine 1.015 (1.005-1.030); Urobilinogen,Urine 0.2 EU/dl (0.2)
[2020-09-07 14:42] LABS: Coronavirus 19 IgG Antibody Negative (Negative); Coronavirus 19 IgM Antibody Negative (Negative)
[2020-09-07 14:52] LABS: Barbiturates Screen,Urine Negative ng/ml (<200); Benzodiazepines Screen,Urine Negative ng/ml (<200)
[2020-09-07 14:53] LABS: Amphetamine/Metha Screen,Urine Negative ng/ml (<1000)
[2020-09-07 14:54] LABS: Cannabinoid Screen,Urine Negative ng/ml (<50); Cocaine Screen,Urine Negative ng/ml (<300)
[2020-09-07 14:55] LABS: Methadone Screen,Urine Negative ng/ml (<300)
[2020-09-07 14:56] LABS: Opiate Screen,Urine Negative ng/ml (<300); Phencyclidine Screen,Urine Negative ng/ml (<25)
--- NOTE | 2020-09-07 15:14 | PC.NURSE ---
placed call to devon martins program proposals coordinator to call back.
--- NOTE | 2020-09-07 15:55 | PC.NURSE ---
placed call to micky claudio dr to them to look over.
[2020-09-07 16:37] LABS: Urine Pregnancy, HCG Qual. Negative (Negative)
--- NOTE | 2020-09-07 17:20 | ECG_ITS ---
APPROVED REPORT Exam: Resting ECG HR:60 bpm ECG Measurements Heart Rate 60 AXES HI 166 P 21 QRSd 88 QRS -40 QT 430 T 6 QTc 430 Conclusion Normal sinus rhythm Left axis deviation late r wave progression - unchanged from prior Abnormal ECG Electronically signed by : Adolfo Linda, 09/08/2020 21:06:56
--- NOTE | 2020-09-07 17:30 | PC.NURSE ---
Report called to Yeimy at [facility]
[2020-09-07 18:33] VITALS: BP 145/70; PULSE 78; RESP 16; TEMP 36.6; O2SAT 98
== END 2020-09-07 18:34 ==
PROVIDERS: Emergency Provider Emergency Medicine; PCP Nurse Practitioner Family
DX: R45.851 Suicidal ideations (principal); J44.9 Chronic obstructive pulmonary disease, unspecified; F34.1 Dysthymic disorder; F41.8 Other specified anxiety disorders; K21.9 Gastro-esophageal reflux disease without esophagitis; I10 Essential (primary) hypertension; F17.210 Nicotine dependence, cigarettes, uncomplicated; Z79.899 Other long term (current) drug therapy; Z01.84 Encounter for antibody response examination
CPT/HCPCS: 36415; 80053; 80305; 80329; 81001; 81025; 85025; 86328; 93005; 99283

== ENCOUNTER 2020-09-26 10:37 | Emergency (ER) | payer BC, SELFPAY ==
[2020-09-26 10:50] VITALS: BP 141/78; PULSE 62; RESP 21; TEMP 36; O2SAT 98; BMI 29.9
--- NOTE | 2020-09-26 11:09 | HMH.EDUTC ---
[facility] [place] Impression: Exposure to COVID-19 virus Disposition: Home, Self-Care Condition on Discharge: Good Instructions: Preventing the Spread of Coronavirus Discharge Instructions Additional Instructions: Drink plenty of fluids. Take tylenol for pain or fever. Return if you begin to have difficulty breathing. Follow up with your regular doctor. GO TO THE ER FOR ANY WORSENING SYMPTOMS Referrals: Nick Romero MD [Primary Care Provider] - Forms: Work/School Release Time of Disposition: 11:10 Medical Decision Making - Medical Records Medical records reviewed: No: I reviewed the patient's medical records. - Meng Inquiry Pt receiving controlled substance: No Vital Signs: 09/26/20 10:50 09/26/20 11:14 Temperature 96.8 F L 96.8 F L Temperature Source Temporal Artery Scan Pulse Rate 62 Pulse Rate [Right Brachial] 62 Respiratory Rate 21 21 Blood Pressure 141/78 H Blood Pressure [Right Arm] 141/78 H Blood Pressure Mean [Right Arm] 99 Blood Pressure Source [Right Arm] Automatic Cuff Blood Pressure Position [Right Arm] Sitting 02 Sat by Pulse Oximetry 98 Oxygen Delivery Method Room Air [facility] [place] - General Stated complaint: covid exposure Time Seen by Provider: 09/26/20 11:09 - History of Present Illness Provider Complaint: She was told by the health dept to come and get tested for covid-19. Her daughter currently has covid and she has been around her. She denies any symptoms so far. - Related Data Home Medications Medication Instructions Recorded Confirmed aspirin 81 mg tablet,delayed 81 mg PO DAILY 01/13/20 08/20/20 release clopidogrel 75 mg tablet 75 mg PO DAILY tab 08/02/20 08/20/20 lisinopril 20 1 tab PO DAILY tab 08/02/20 08/20/20 mg-hydrochlorothiazide 25 mg tablet omeprazole 20 mg capsule,delayed 20 mg PO DAILY 08/20/20 08/20/20 release Previous Rx's Medication Instructions Recorded cholecalciferol (vitamin D3) 25 1,000 unit PO DAILY #90 cap 12/12/19 mcg (1,000 unit) capsule rosuvastatin 20 mg tablet 20 mg PO DAILY #90 tab 01/13/20 amlodipine 10 mg tablet 10 mg PO DAILY #30 tab 07/24/20 methylPREDNISolone [Medrol 4mg 4 mg PO DIRECTED #21 tab 08/10/20 tab] fluoxetine 20 mg capsule 20 mg PO HS #30 cap 08/17/20 fluoxetine 40 mg capsule 40 mg PO HS #30 cap 08/17/20 albuterol sulfate 90 mcg/actuation 1 inh INHALATION QID PRN #8.5 g 08/20/20 aerosol inhaler carvedilol 25 mg tablet 37.5 mg PO BID #270 tab 08/24/20 ergocalciferol (vitamin D2) 1,250 See Rx Instructions .ROUTE 08/27/20 mcg (50,000 unit) capsule .COMPLEX #4 cap levothyroxine 150 mcg tablet See Rx Instructions .ROUTE 08/27/20 .COMPLEX #30 tab loratadine 10 mg tablet 10 mg PO DAILY #30 tab 09/14/20 Allergies Allergy/AdvReac Type Severity Reaction Status Date / Time No Known Allergies Allergy Verified 08/20/20 15:41 [facility] History - Hepatitis A Screen Attestation statement:: This patient has been screened for Hepatitis A risk factors. I have reviewed the patient's past medical history: Yes Medical History: Reports:: Anxiety, Chronic Obstructive Pulmonary Disease (COPD), Depression, Gastroesophageal Reflux Disease(GERD), Hyperlipidemia, Hypertension, Transient Ischemic Attacks (TIA) Denies:: Cancer, Diabetes Mellitus Type 1, Diabetes Mellitus Type 2, Internal Pacemaker, MRSA, Seizures Other Medical History: Reports: Anemia, Arthritis, Hypothyroidism, Thyroid Disease. Denies: Blood Transfusion Reaction Comment: vitamin d def Laterality Cases: Right: Carpal Tunnel Release Other Surgeries: Yes: No Previous Surgery, BSO, Colonoscopy, EGD, Hysterectomy-Total, Hysterectomy-Partial, Tubal Ligation, Other. No: Pacemaker Amputation: No Fractures: No Comment: carpal tunnel, ablation - Social History Smoking Status: Current every day smoker Tobacco Type: cigarettes # Packs/Day (cigarettes): 1 #Yrs smoked (if former smoker): 36 Alcohol Intake: never
[2020-09-26 11:14] VITALS: BP 141/78; PULSE 62; RESP 21; TEMP 36; O2SAT 98
--- NOTE | 2020-09-26 14:20 | PC.NURSE ---
PATIENT NOTIFIED OF POSITIVE COVID TEST AT THIS TIME
== END 2020-09-26 11:15 | disposition home or self-care (01) ==
PROVIDERS: Emergency Provider Nurse Practitioner Family; PCP Emergency Medicine
DX: U07.1 COVID-19 (principal); I10 Essential (primary) hypertension; F41.8 Other specified anxiety disorders; K21.9 Gastro-esophageal reflux disease without esophagitis; E78.5 Hyperlipidemia, unspecified; J44.9 Chronic obstructive pulmonary disease, unspecified; E03.9 Hypothyroidism, unspecified; F17.210 Nicotine dependence, cigarettes, uncomplicated; Z79.899 Other long term (current) drug therapy
CPT/HCPCS: 99202; G0463; U0003

== ENCOUNTER → 2022-05-16 16:36 | Outpatient (CLI) | payer OTHER, SELFPAY ==
[2022-05-16 15:09] LABS: Alanine Aminotransferase 105 U/L (12-78); Albumin Level 4.7 g/dl (3.5-5.0); Albumin/Globulin Ratio 1.8 (1.1-1.8); Alkaline Phosphatase 115 U/L (38-126); Anion Gap 11.7 mEq/L (5-15); Aspartate Amino Transferase 82 U/L (14-36); Bilirubin,Total 0.4 mg/dl (0.2-1.3); Blood Urea Nitrogen 15 mg/dl (7-17); Carbon Dioxide 26 mmol/L (22.0-30.0); Chloride 103 mmol/L (98-107); Chol/HDL Ratio 3.7 (1-3.5); Cholesterol 280 mg/dl (140-200); Estimated Glomerular Filt Rate 65 ml/min (>60); GFR (African American) 78 ML/MIN (>60); Globulin 2.6 g/dL (1.3-3.2); Glucose 81 mg/dl (74-100); HDL Cholesterol 76 mg/dl (40-60); Potassium 3.7 mmoL/L (3.5-5.1); Sodium 137 mmol/L (136-145); Total Protein,Serum 7.3 g/dl (6.3-8.2); Triglycerides 158 mg/dl (30-150); VLDL Cholesterol 32 mg/dL (0-40)
[2022-05-16 15:17] LABS: Basophils % 0.8 % (0.1-2.0); Eosinophils # 0.1 K/mm3 (0.0-0.4); Eosinophils % 1.4 % (0.1-12.0); Hematocrit 43.9 % (37.0-47.0); Hemoglobin 14.3 g/dL (12.2-16.2); Lymphocytes % 22.9 % (10-50); Mean Corpuscular HGB Conc 32.5 g/dL (31.8-35.4); Mean Corpuscular Hemoglobin 32.1 pg (27.0-31.2); Mean Corpuscular Volume 98.7 fl (81-99); Monocytes # 0.3 K/mm3 (0.1-1.0); Monocytes % 6.3 % (1.7-9.3); Neutrophils # 2.9 K/mm3 (1.8-7.8); Neutrophils % 68.6 % (37.0-80.0); Platelet Count 203 K/mm3 (142-424); Red Blood Count 4.44 M/mm3 (4.20-5.40); Red Cell Distribution Width 14.9 % (11.5-17.5); White Blood Count 4.2 K/mm3 (4.8-10.8)
[2022-05-16 15:20] LABS: Direct LDL Cholesterol 143.75 mg/dL (100-129)
[2022-05-16 16:52] LABS: Hemoglobin A1C 5.8 % (4.0-6.0)
== END ==
PROVIDERS: PCP Student in an Organized Health Care Education/Training Program; Visit Provider Student in an Organized Health Care Education/Training Program
DX: E03.9 Hypothyroidism, unspecified (principal); R53.83 Other fatigue; Z79.899 Other long term (current) drug therapy
CPT/HCPCS: 80053; 80061; 82306; 83036; 84443; 85025

== ENCOUNTER → 2023-03-26 23:13 | Outpatient (CLI) | payer OTHER, SELFPAY ==
[2023-03-26 18:48] LABS: Basophils % 0.5 % (0.1-2.0); Eosinophils # 0.1 K/mm3 (0.0-0.4); Eosinophils % 1.8 % (0.1-12.0); Hematocrit 40.2 % (37.0-47.0); Hemoglobin 13.9 g/dL (12.2-16.2); Lymphocytes # 1.6 K/mm3 (0.7-4.5); Lymphocytes % 24.9 % (10-50); Mean Corpuscular HGB Conc 34.4 g/dL (31.8-35.4); Mean Corpuscular Hemoglobin 35.4 pg (27.0-31.2); Mean Corpuscular Volume 102.9 fl (81-99); Monocytes # 0.4 K/mm3 (0.1-1.0); Monocytes % 5.3 % (1.7-9.3); Neutrophils # 4.4 K/mm3 (1.8-7.8); Neutrophils % 67.4 % (37.0-80.0); Platelet Count 214 K/mm3 (142-424); Red Blood Count 3.91 M/mm3 (4.20-5.40); White Blood Count 6.5 K/mm3 (4.8-10.8)
[2023-03-26 19:09] LABS: Alanine Aminotransferase 116 U/L (12-78); Albumin Level 4.6 g/dl (3.5-5.0); Albumin/Globulin Ratio 1.5 (1.1-1.8); Alkaline Phosphatase 99 U/L (38-126); Anion Gap 11.9 mEq/L (5-15); Aspartate Amino Transferase 74 U/L (14-36); Bilirubin,Total 0.3 mg/dl (0.2-1.3); Blood Urea Nitrogen 18 mg/dl (7-17); Calcium 9.6 mg/dl (8.4-10.2); Carbon Dioxide 28 mmol/L (22.0-30.0); Chloride 102 mmol/L (98-107); Chol/HDL Ratio 2.6 (1-3.5); Cholesterol 268 mg/dl (140-200); Estimated Glomerular Filt Rate 57 ml/min (>60); GFR (African American) 69 ML/MIN (>60); Glucose 90 mg/dl (74-100); HDL Cholesterol 105 mg/dl (40-60); Potassium 3.9 mmoL/L (3.5-5.1); Sodium 138 mmol/L (136-145); Total Protein,Serum 7.6 g/dl (6.3-8.2); Triglycerides 186 mg/dl (30-150); VLDL Cholesterol 37 mg/dL (0-40)
[2023-03-26 19:20] LABS: Direct LDL Cholesterol 122.64 mg/dL (100-129)
[2023-03-26 19:27] LABS: Hemoglobin A1C 5.6 % (4.0-6.0)
[2023-03-26 19:28] LABS: 25-OH Vitamin D, Total 28.2 ng/mL (30-100)
[2023-03-26 19:57] LABS: Vitamin B12 429 pg/mL (239-931)
== END ==
PROVIDERS: PCP Nurse Practitioner Family; Visit Provider Internal Medicine
DX: E03.9 Hypothyroidism, unspecified (principal); E55.9 Vitamin D deficiency, unspecified; Z68.32 Body mass index [BMI] 32.0-32.9, adult
CPT/HCPCS: 80053; 80061; 82306; 82607; 83036; 84443; 85025

== ENCOUNTER → 2023-04-16 15:26 | Outpatient (CLI) | payer OTHER, SELFPAY ==
--- NOTE | 2023-04-16 15:28 | CA_ITS ---
APPROVED REPORT EXAM: Comprehensive 2D, Doppler, and color-flow Echocardiogram Saddle Cutter: Gisela Murdock, ALONSO, RVS Ht: 5 ft 2 in Wt: 176lbs BSA: 1.81 BP: 195/118 mmHg Indications: HTN, Abn EKG, COPD, Smoker, edema, hld, Murmur 2D Dimensions IVSd 1.33 cm LVEF (Visual) 57.50 % PWd 1.04 cm LA Volume 54.40 mL LVDd 4.33 cm LA Volume Index 30.470282 mL/m2 (M/F) 16-34 LVDs 3.03 cm Aortic Root 2.80 cm Left Atrium 2.74 cm LVOT 1.80 cm (M/F) 1.5-2.5 M-Mode Dimensions LA Diam 3.30 cm (1.9-4.0) Ao Diam 3.23 cm (2.0-3.7) EPSs 0.59 cm TAPSE 1.62 (<1.7) LV Diastology E Decel Time 213.00 (160-240 msec) E/A Ratio 1.47 MED E' 3.90 (< 7 cm/sec) MED A' 5.80 cm/s E'/MED E' Ratio 20.49 (>14) LAT E' 5.20 (<10 cm/sec) LAT A' 6.50 cm/s E/LAT E' Ratio 15.37 (>14) Aortic Valve LVOT Max 75.00 (70-110 cm/s) LVOT VTI 16.65 cm AoV Peak Thom. 132.00 (50-130 cm/s) AO Peak GR. 6.90 mmHg AO Mean GR. 3.50 (<5 mmHg) AO VTI 26.22 (18-25 cm) MICHELET (VTI) 1.62 (2.5-4.5 cm2) Mitral Valve MV A Velocity 54.00 (40-130 cm/s) E/A Ratio 1.47 MV Decel. Time 213.00 (160-240 ms) MV Mean Gr. 1.60 (<2mmHg) Pulmonary Valve NY End VMAX 117.00 cm/s Left Ventricle The left ventricle is normal size. The left ventricular systolic function is normal. The left ventricular ejection fraction is within the normal range. There is increased LV wall thickness. There is normal LV segmental wall motion. The left ventricular diastolic function is normal. LVEF is 55% Right Ventricle The right ventricle is normal size. The right ventricular systolic function is normal. Atria The left atrium size is normal. The right atrium size is normal. There is no Doppler evidence of interatrial shunt. Aortic Valve The aortic valve is mildly thickened. There is no aortic valvular stenosis. Trace aortic regurgitation. Mitral Valve The mitral valve is mildly thickened. No evidence of mitral valve stenosis. Mild mitral regurgitation. Tricuspid Valve The tricuspid valve leaflets are thin and pliable. Trace tricuspid regurgitation. RVSP is normal. Pulmonic Valve The pulmonary valve is normal in structure. Mild pulmonic regurgitation. Great Vessels The aortic root is normal in size. The ascending aorta is normal in size. IVC is normal in size and collapses >50% with inspiration. Pericardium There is no pericardial effusion. Other Information Study Quality: Fair Conclusion Normal biventricular systolic function. No significant valvular stenosis or regurgitation. Electronically signed by : Olga Lidia Parry MD 04/19/2023 21:36:19
== END ==
PROVIDERS: PCP Emergency Medicine; Visit Provider Internal Medicine
DX: I10 Essential (primary) hypertension (principal); J44.9 Chronic obstructive pulmonary disease, unspecified; R94.31 Abnormal electrocardiogram [ECG] [EKG]; Z72.0 Tobacco use
CPT/HCPCS: 93306

== ENCOUNTER → 2023-04-16 23:26 | Outpatient (CLI) | payer OTHER, SELFPAY | PROVIDERS: PCP Internal Medicine; Visit Provider Internal Medicine | DX: E03.9 Hypothyroidism, unspecified (principal) | CPT/HCPCS: 82043; 84443 ==

== ENCOUNTER → 2023-05-25 23:20 | Outpatient (CLI) | payer OTHER, SELFPAY ==
[2023-05-25 18:47] LABS: Chol/HDL Ratio 2.7 (1-3.5); Cholesterol 96 mg/dl (140-200); HDL Cholesterol 35 mg/dl (40-60); Triglycerides 99 mg/dl (30-150); VLDL Cholesterol 20 mg/dL (0-40)
[2023-05-25 19:19] LABS: Thyroid Stimulating Hormone 0.07 uIU/mL (0.465-4.68)
[2023-05-25 20:21] LABS: Direct LDL Cholesterol 52.85 mg/dL (100-129)
== END ==
PROVIDERS: PCP Internal Medicine; Visit Provider Internal Medicine
DX: E03.9 Hypothyroidism, unspecified (principal); E78.5 Hyperlipidemia, unspecified
CPT/HCPCS: 80061; 84443

== ENCOUNTER 2025-01-03 10:07 | Outpatient (CLI) | payer OTHER, SELFPAY ==
[2025-01-03 09:13] VITALS: BMI 33.5
--- OUTSIDE RECORDS SUMMARY | 2025-01-03 10:09 | XMS_ITS | Data Portability ---
Author Organization [facility] Address [address] [place] [address] Assessment No assessment recorded. Plan of Treatment Reminders Order Date Submit Date Provider Last Modified By Organization Details Last Modified Time Details Appointments History and Physical 20 2024 08:40A Chet Gurrola APRN Not available Not available Not available Lab lipid panel, serum 2024 025 [facility], [address], [address], [place], [address], 12/08/2024 01:06:18 CMP, serum or plasma 2024 025 [facility], [address], [address], [place], [address], 12/08/2024 01:06:17 CBC w/ auto diff 2024 025 [facility], [address], [place] [address], [place], [address], 12/08/2024 01:06:17 renal function panel, serum 2024 025 [facility], [address], [address], [place], [address], 12/08/2024 01:06:17 vitamin D, 25-hydrox y, total, serum 2024 025 [facility], [address], [place] [address], [place], [address], 12/08/2024 01:06:18 TSH + free T4, serum 2024 025 [place] [facility], [address], [place] [address], [place], [address], 12/08/2024 01:06:16 Referral otolaryng ologist referral [address] [facility], [address], [place], [address], 12/26/2024 18:33:49 Procedures None recorded. Surgeries None recorded. Imaging None recorded. Medication Orders amlodipin e 10 mg tablet [address], [address], 12/06/2024 10:13:19 aspirin 81 mg tablet,de layed release [address], [address], 12/06/2024 10:13:20 carvedilo l 25 mg tablet [address], [address], 12/06/2024 10:13:20 lisinopri l 20 mg-hydroc hlorothia zide 25 mg tablet [address], [address], 12/06/2024 10:13:19 albuterol sulfate HFA 90 mcg/actua tion aerosol inhaler [address], [address], 12/06/2024 10:14:11 Patient TargetsNo targets recorded. Patient InstructionsNo instructions recorded. 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 Not Available [facility] ([facility]) [address] [place], [address], 12/08/2024 01:06:16 12/07/1912/08/2024 TSH+F REE T4 T4,free(dire ct) <0.10 NG/dL 0.82-1 .77 below low normal Vanesa ified by repea t misty sis Not Available [facility] ([facility]) [address] [place], [address], 12/08/2024 01:06:16 12/07/19 25 12/07/2024 CBC WITH DIFFE RENTI AL/PL ATELE T WBC COMMEN T x10e3 /uL Test not perfo rmed. Whole blood speci men parti ally or compl etely clott ed. A commo n cause is insuf ficie nt mixin g upon colle ction . Not Available [facility] ([facility]) [address] [facility], [place], [address], 12/08/2024 01:06:17 12/07/1912/07/2024 CBC WITH DIFFE RENTI AL/PL ATELE T RBC TNP Test not perfo rmed Not Available [facility] ([facility]) [address] [facility], [place], [address], 12/08/2024 01:06:17 12/07/19 25 12/07/2024 CBC WITH DIFFE RENTI AL/PL ATELE T hemoglobin TNP Test not perfo rmed Not Available [facility] ([facility]) [address] [facility], [place], [address], 12/08/2024 01:06:17 12/07/1912/07/2024 CBC WITH DIFFE RENTI AL/PL ATELE T hematocrit TNP Test not perfo rmed Not Available [facility] ([facility]) [address] [facility], [place], [address], 12/08/2024 01:06:17 12/07/19 25 12/07/2024 CBC WITH DIFFE RENTI AL/PL ATELE T MCV SCHOOL GUIDANCE COUNSELOR Not Available [facility] ([facility]) [address] [facility], [place], [address], 12/08/2024 01:06:17 12/07/1912/07/2024 CBC WITH DIFFE RENTI AL/PL ATELE T MCH SCHOOL GUIDANCE COUNSELOR Not Available [facility] ([facility]) [address] [facility], [place], [address], 12/08/2024 01:06:17 12/07/19 25 12/07/2024 CBC WITH DIFFE RENTI AL/PL ATELE T MCHC SCHOOL GUIDANCE COUNSELOR Not Available [facility] ([facility]) [address] [facility], [place], [address], 12/08/2024 01:06:17 12/07/1912/07/2024 CBC WITH DIFFE RENTI AL/PL ATELE T RDW SCHOOL GUIDANCE COUNSELOR Not Available [facility] ([facility]) [address] [facility], [place], [address], 12/08/2024 01:06:17 12/07/19 25 12/07/2024 CBC WITH DIFFE RENTI AL/PL ATELE T platelets TNP Test not perfo rmed Not Available [facility] ([facility]) [address] [facility], [place], [address], 12/08/2024 01:06:17 12/07/19 25 12/07/2024 CBC WITH DIFFE RENTI AL/PL ATELE T neutrophils TNP Test not perfo rmed Not Available [facility] ([facility]) [address] [place], [address], 12/08/2024 01:06:17 12/07/19 25 12/07/2024 CBC WITH DIFFE RENTI AL/PL ATELE T lymphs TNP Test not perfo rmed Not Available [facility] ([facility]) [address] [place], [address], 12/08/2024 01:06:17 12/07/19 25 12/07/2024 CBC WITH DIFFE RENTI AL/PL ATELE T monocytes TNP Test not perfo rmed Not Available [facility] ([facility]) [address] [place], [address], 12/08/2024 01:06:17 12/07/19 25 12/07/2024 CBC WITH DIFFE RENTI AL/PL ATELE T eos TNP Test not perfo rmed Not Available [facility] ([facility]) [address] [place], [address], 12/08/2024 01:06:17 12/07/19 25 12/07/2024 CBC WITH DIFFE RENTI AL/PL ATELE T basos SCHOOL GUIDANCE COUNSELOR Not Available [facility] ([facility]) [address] [place], [address], 12/08/2024 01:06:17 12/07/19 25 12/07/2024 CBC WITH DIFFE RENTI AL/PL ATELE T immature cells SCHOOL GUIDANCE COUNSELOR Not Available [facility] ([facility]) [address] [place], [address], 12/08/2024 01:06:17 12/07/19 25 12/07/2024 CBC WITH DIFFE RENTI AL/PL ATELE T neutrophils (absolute) SCHOOL GUIDANCE COUNSELOR Not Available [facility] ([facility]) [address] [place], [address], 12/08/2024 01:06:17 12/07/19 25 12/07/2024 CBC WITH DIFFE RENTI AL/PL ATELE T lymphs (absolute) TNP Test not perfo rmed Not Available [facility] ([facility]) [address] [facility], [place], [address], 12/08/2024 01:06:17 12/07/19 25 12/07/2024 CBC WITH DIFFE RENTI AL/PL ATELE T monocytes(ab solute) SCHOOL GUIDANCE COUNSELOR Not Available [facility] ([facility]) [address] [place], [address], 12/08/2024 01:06:17 12/07/1912/07/2024 CBC WITH DIFFE RENTI AL/PL ATELE T eos (absolute) TNP Test not perfo rmed Not Available [facility] ([facility]) [address] [place], [address], 12/08/2024 01:06:17 12/07/19 25 12/07/2024 CBC WITH DIFFE RENTI AL/PL ATELE T baso (absolute) TNP Test not perfo rmed Not Available [facility] ([facility]) [address] [place], [address], 12/08/2024 01:06:17 12/07/1912/07/2024 CBC WITH DIFFE RENTI AL/PL ATELE T immature granulocytes SCHOOL GUIDANCE COUNSELOR Not Available [facility] ([facility]) [address] [place], [address], 12/08/2024 01:06:17 12/07/19 25 12/07/2024 CBC WITH DIFFE RENTI AL/PL ATELE T immature grans (abs) SCHOOL GUIDANCE COUNSELOR Not Available [facility] ([facility]) [address] [place], [address], 12/08/2024 01:06:17 12/07/19 25 12/07/2024 CBC WITH DIFFE RENTI AL/PL ATELE T NRBC SCHOOL GUIDANCE COUNSELOR Not Available [facility] ([facility]) [address] [facility] [place], [address], 12/08/2024 01:06:17 12/07/19 25 12/07/2024 CBC WITH DIFFE RENTI AL/PL ATELE T hematology comments: SCHOOL GUIDANCE COUNSELOR Not Available [facility] ([facility]) [address] [facility], [place], [address], 12/08/2024 01:06:17 12/07/19 25 12/07/2024 COMP. METAB OLIC PANEL (14) glucose 84 mg/dL 70-99 normal Not Available [facility] ([facility]) [address] [facility] [place], [address], 12/08/2024 01:06:17 12/07/19 25 12/07/2024 COMP. METAB OLIC PANEL (14) BUN 23 mg/dL 6-24 normal Not Available [facility] ([facility]) [address] [facility] [place], [address], 12/08/2024 01:06:17 12/07/19 25 12/07/2024 COMP. METAB OLIC PANEL (14) creatinine 1.35 mg/dL 0.57-1 .00 above high normal Not Available [facility] ([facility]) [address] [place], [address], 12/08/2024 01:06:17 12/07/19 25 12/07/2024 COMP. METAB OLIC PANEL (14) eGFR 45 mL/mi n/1.7 3 >59 below low normal Not Available [facility] ([facility]) [address] [place], [address], 12/08/2024 01:06:17 12/07/19 25 12/07/2024 COMP. METAB OLIC PANEL (14) BUN/creatini ne ratio 17 9-23 normal Not Available [facility] ([facility]) [address] [facility] [place], [address], 12/08/2024 01:06:17 12/07/19 25 12/07/2024 COMP. METAB OLIC PANEL (14) sodium 139 mmol/ L 134-14 4 normal Not Available [facility] ([facility]) [address] [facility], [place], [address], 12/08/2024 01:06:17 12/07/19 25 12/07/2024 COMP. METAB OLIC PANEL (14) potassium 4.9 mmol/ L 3.5-5. 2 normal Speci men recei latasha hemol yzed. Value may be incre ased by hemol ysis. Clini sumaya corre latio n indic ated. Not Available [facility] ([facility]) [address] [facility] [place], [address], 12/08/2024 01:06:17 12/07/19 25 12/07/2024 COMP. METAB OLIC PANEL (14) chloride 100 mmol/ L 96-106 normal Not Available [facility] ([facility]) [address] [facility] [place], [address], 12/08/2024 01:06:17 12/07/19 25 12/07/2024 COMP. METAB OLIC PANEL (14) carbon dioxide, total 21 mmol/ L 20-29 normal Not Available [facility] ([facility]) [address] [facility] [place], [address], 12/08/2024 01:06:17 12/07/19 25 12/07/2024 COMP. METAB OLIC PANEL (14) calcium 10.1 mg/dL 8.7-10 .2 normal Not Available [facility] ([facility]) [address] [facility] [place], [address], 12/08/2024 01:06:17 12/07/19 25 12/07/2024 COMP. METAB OLIC PANEL (14) protein, total 7.5 g/dL 6.0-8. 5 normal Not Available [facility] ([facility]) [address] [facility] [place], [address], 12/08/2024 01:06:17 12/07/19 25 12/07/2024 COMP. METAB OLIC PANEL (14) albumin 4.6 g/dL 3.8-4. 9 normal Not Available [facility] ([facility]) [address] [facility] [place], [address], 12/08/2024 01:06:17 12/07/19 25 12/07/2024 COMP. METAB OLIC PANEL (14) globulin, total 2.9 g/dL 1.5-4. 5 Not Available [facility] ([facility]) [address] [facility] [place], [address], 12/08/2024 01:06:17 12/07/19 25 12/07/2024 COMP. METAB OLIC PANEL (14) bilirubin, total 0.3 mg/dL 0.0-1. 2 normal Not Available [facility] ([facility]) [address] [facility] [place], [address], 12/08/2024 01:06:17 12/07/19 25 12/07/2024 COMP. METAB OLIC PANEL (14) alkaline phosphatase 88 IU/L 44-121 normal Not Available [facility] ([facility]) [address] [facility] [place], [address], 12/08/2024 01:06:17 12/07/19 25 12/07/2024 COMP. METAB OLIC PANEL (14) AST (SGOT) 45 IU/L 0-40 above high normal Not Available [facility] ([facility]) [address] [facility] [place], [address], 12/08/2024 01:06:17 12/07/19 25 12/07/2024 COMP. METAB OLIC PANEL (14) ALT (SGPT) 68 IU/L 0-32 above high normal Not Available [facility] ([facility]) [address] [place], [address], 12/08/2024 01:06:17 12/07/19 25 12/07/2024 RENAL PANEL (10) phosphorus 3.3 mg/dL 3.0-4. 3 normal Not Available [facility] ([facility]) [address] [place], [address], 12/08/2024 01:06:17 12/07/19 25 12/07/2024 LIPID PANEL cholesterol, total 304 mg/dL 100-19 9 above high normal Not Available [facility] ([facility]) [address] [place], [address], 12/08/2024 01:06:18 12/07/19 25 12/07/2024 LIPID PANEL triglyceride s 156 mg/dL 0-149 above high normal Not Available [facility] ([facility]) [address] [place], [address], 12/08/2024 01:06:18 12/07/19 25 12/07/2024 LIPID PANEL HDL cholesterol 80 mg/dL >39 normal Not Available [facility] ([facility]) [address] [place], [address], 12/08/2024 01:06:18 12/07/19 25 12/07/2024 LIPID PANEL VLDL cholesterol sumaya 28 mg/dL 5-40 Not Available [facility] ([facility]) [address] [place], [address], 12/08/2024 01:06:18 12/07/19 25 12/07/2024 LIPID PANEL LDL chol calc (rust) 196 mg/dL 0-99 above high normal Not Available [facility] ([facility]) [address] [place], [address], 12/08/2024 01:06:18 12/07/19 25 12/07/2024 LIPID PANEL LDL calc comment: Commen t Consi homa evalu ating for Famil ial Hyper mylene stero lemia (FH), if clini sarah indic ated. Not Available [facility] ([facility]) [address] [facility], [place], [address], 12/08/2024 01:06:18 12/07/19 25 12/07/2024 VITAM IN D, 25-HY DROXY vitamin D, 25-hydroxy 25.4 NG/mL 30.0-1 00.0 below low normal Vitam in D defic iency has been defin ed by the Insti tute of Medic ine and an Endoc rine Socie ty pract ice guide line as a level of serum 25-OH vitam in D less than 20 ng/mL (1,2) . The Endoc rine Socie ty went on to furth er defin e vitam in D insuf ficie ncy as a level betwe en 21 and 29 ng/mL (2). 1. IOM (Inst itute of Medic ine). 2009. Dieta ry refer ence intak es for calci um and D. Lilo brizuela [place]: [facility] Press . 2. Rayne valencia MF, Romain goff NC, Nahomi off-F errar i ONEILL, et al. Evalu ation , treat ment, and preve ntion of vitam in D defic iency : an Endoc rine Socie ty clini sumaya pract ice guide line. JCEM. 2010; 96(7) :1911 -30. Not Available [facility] ([facility]) [address] [facility], [place], [address], 12/08/2024 01:06:18 12/07/19 25 12/07/2024 SPECI MEN STATU S REPOR T specimen status report COMMEN T Test not perfo rmed. Whole blood speci men parti ally or compl etely clott ed. A commo n cause is insuf ficie nt mixin g upon colle ction . TEST: 61930 [id number] CBC With Diffe renti al/Pl atele t Not Available [facility] ([facility]) [address] [facility], [place], [address], 12/08/2024 01:06:19 12/28/1912/28/2024 TSH+F REE T4 TSH 126.00 0 uIU/m L 0.450- 4.500 above high normal Resul ts confi rmed on dilut ion. Not Available [facility] ([facility]) [address] [facility], [place], [address], 12/28/2024 12:07:54 12/28/19 25 12/28/2024 TSH+F REE T4 T4,free(dire ct) 0.19 NG/dL 0.82-1 .77 below low normal Not Available [facility] ([facility]) [address] [facility], [place], [address], 12/28/2024 12:07:54 12/28/19 25 12/28/2024 CBC WITH DIFFE RENTI AL/PL ATELE T WBC 6.3 x10e3 /uL 3.4-10 .8 normal Not Available [facility] ([facility]) [address] [place], [address], 12/28/2024 12:07:54 12/28/19 25 12/28/2024 CBC WITH DIFFE RENTI AL/PL ATELE T RBC 3.75 x10e6 /uL 3.77-5 .28 below low normal Not Available [facility] ([facility]) [address] [place], [address], 12/28/2024 12:07:54 12/28/19 25 12/28/2024 CBC WITH DIFFE RENTI AL/PL ATELE T hemoglobin 12.9 g/dL 11.1-1 5.9 normal Not Available [facility] ([facility]) [address] [place], [address], 12/28/2024 12:07:54 12/28/19 25 12/28/2024 CBC WITH DIFFE RENTI AL/PL ATELE T hematocrit 39.2 % 34.0-4 6.6 normal Not Available [facility] ([facility]) [address] [place], [address], 12/28/2024 12:07:54 12/28/19 25 12/28/2024 CBC WITH DIFFE RENTI AL/PL ATELE T MCV 105 fL 79-97 above high normal Not Available [facility] ([facility]) [address] [place], [address], 12/28/2024 12:07:54 12/28/19 25 12/28/2024 CBC WITH DIFFE RENTI AL/PL ATELE T MCH 34.4 pg 26.6-3 3.0 above high normal Not Available [facility] ([facility]) [address] [place], [address], 12/28/2024 12:07:54 12/28/19 25 12/28/2024 CBC WITH DIFFE RENTI AL/PL ATELE T MCHC 32.9 g/dL 31.5-3 5.7 normal Not Available [facility] ([facility]) [address] [place], [address], 12/28/2024 12:07:54 12/28/19 25 12/28/2024 CBC WITH DIFFE RENTI AL/PL ATELE T RDW 14.1 % 11.7-1 5.4 Not Available [facility] ([facility]) [address] [place], [address], 12/28/2024 12:07:54 12/28/19 25 12/28/2024 CBC WITH DIFFE RENTI AL/PL ATELE T platelets 212 x10e3 /uL 150-45 0 normal Not Available [facility] ([facility]) [address] [place], [address], 12/28/2024 12:07:54 12/28/19 25 12/28/2024 CBC WITH DIFFE RENTI AL/PL ATELE T neutrophils 65 % not estab. normal Not Available [facility] ([facility]) [address] [facility], [place], [address], 12/28/2024 12:07:54 12/28/19 25 12/28/2024 CBC WITH DIFFE RENTI AL/PL ATELE T lymphs 25 % not estab. normal Not Available [facility] ([facility]) [address] [facility], [place], [address], 12/28/2024 12:07:54 12/28/19 25 12/28/2024 CBC WITH DIFFE RENTI AL/PL ATELE T monocytes 7 % not estab. normal Not Available [facility] ([facility]) [address] [facility], [place], [address], 12/28/2024 12:07:54 12/28/19 25 12/28/2024 CBC WITH DIFFE RENTI AL/PL ATELE T eos 2 % not estab. normal Not Available [facility] ([facility]) [address] [facility], [place], [address], 12/28/2024 12:07:54 12/28/19 25 12/28/2024 CBC WITH DIFFE RENTI AL/PL ATELE T basos 1 % not estab. normal Not Available [facility] ([facility]) [address] [facility], [place], [address], 12/28/2024 12:07:54 12/28/19 25 12/28/2024 CBC WITH DIFFE RENTI AL/PL ATELE T immature cells SCHOOL GUIDANCE COUNSELOR Not Available [facility] ([facility]) [address] [facility], [place], [address], 12/28/2024 12:07:54 12/28/19 25 12/28/2024 CBC WITH DIFFE RENTI AL/PL ATELE T neutrophils (absolute) 4.1 x10e3 /uL 1.4-7. 0 normal Not Available [facility] ([facility]) [address] [facility], [place], [address], 12/28/2024 12:07:54 12/28/19 25 12/28/2024 CBC WITH DIFFE RENTI AL/PL ATELE T lymphs (absolute) 1.6 x10e3 /uL 0.7-3. 1 normal Not Available [facility] ([facility]) [address] [facility], [place], [address], 12/28/2024 12:07:54 12/28/19 25 12/28/2024 CBC WITH DIFFE RENTI AL/PL ATELE T monocytes(ab solute) 0.4 x10e3 /uL 0.1-0. 9 normal Not Available [facility] ([facility]) [address] [facility], [place], [address], 12/28/2024 12:07:54 12/28/19 25 12/28/2024 CBC WITH DIFFE RENTI AL/PL ATELE T eos (absolute) 0.1 x10e3 /uL 0.0-0. 4 normal Not Available [facility] ([facility]) [address] [facility], [place], [address], 12/28/2024 12:07:54 12/28/19 25 12/28/2024 CBC WITH DIFFE RENTI AL/PL ATELE T baso (absolute) 0.1 x10e3 /uL 0.0-0. 2 normal Not Available [facility] ([facility]) [address] [facility], [place], [address], 12/28/2024 12:07:54 12/28/19 25 12/28/2024 CBC WITH DIFFE RENTI AL/PL ATELE T immature granulocytes 0 % not estab. Not Available [facility] ([facility]) [address] [facility], [place], [address], 12/28/2024 12:07:54 12/28/19 25 12/28/2024 CBC WITH DIFFE RENTI AL/PL ATELE T immature grans (abs) 0.0 x10e3 /uL 0.0-0. 1 Not Available [facility] ([facility]) [address] [facility], [place], [address], 12/28/2024 12:07:54 12/28/19 25 12/28/2024 CBC WITH DIFFE RENTI AL/PL ATELE T NRBC SCHOOL GUIDANCE COUNSELOR Not Available [facility] ([facility]) [address] [facility], [place], [address], 12/28/2024 12:07:54 12/28/19 25 12/28/2024 CBC WITH DIFFE RENTI AL/PL ATELE T hematology comments: SCHOOL GUIDANCE COUNSELOR Not Available [facility] ([facility]) [address] [facility], [place], [address], 12/28/2024 12:07:54 12/28/19 25 12/28/2024 COMP. METAB OLIC PANEL (14) glucose 125 mg/dL 70-99 above high normal Not Available [facility] ([facility]) [address] [facility], [place], [address], 12/28/2024 12:07:55 12/28/19 25 12/28/2024 COMP. METAB OLIC PANEL (14) BUN 19 mg/dL 6-24 normal Not Available [facility] ([facility]) [address] [facility] [place], [address], 12/28/2024 12:07:55 12/28/19 25 12/28/2024 COMP. METAB OLIC PANEL (14) creatinine 1.30 mg/dL 0.57-1 .00 above high normal Not Available [facility] ([facility]) [address] [facility] [place], [address], 12/28/2024 12:07:55 12/28/19 25 12/28/2024 COMP. METAB OLIC PANEL (14) eGFR 47 mL/mi n/1.7 3 >59 below low normal Not Available [facility] ([facility]) [address] [facility] [place], [address], 12/28/2024 12:07:55 12/28/19 25 12/28/2024 COMP. METAB OLIC PANEL (14) BUN/creatini ne ratio 15 9-23 normal Not Available [facility] ([facility]) [address] [place], [address], 12/28/2024 12:07:55 12/28/19 25 12/28/2024 COMP. METAB OLIC PANEL (14) sodium 137 mmol/ L 134-14 4 normal Not Available [facility] ([facility]) [address] [facility] [place], [address], 12/28/2024 12:07:55 12/28/19 25 12/28/2024 COMP. METAB OLIC PANEL (14) potassium 4.5 mmol/ L 3.5-5. 2 normal Not Available [facility] ([facility]) [address] [facility], [place], [address], 12/28/2024 12:07:55 12/28/19 25 12/28/2024 COMP. METAB OLIC PANEL (14) chloride 97 mmol/ L 96-106 normal Not Available [facility] ([facility]) [address] [facility] [place], [address], 12/28/2024 12:07:55 12/28/19 25 12/28/2024 COMP. METAB OLIC PANEL (14) carbon dioxide, total 25 mmol/ L 20-29 normal Not Available [facility] ([facility]) [address] [facility] [place], [address], 12/28/2024 12:07:55 12/28/19 25 12/28/2024 COMP. METAB OLIC PANEL (14) calcium 10.2 mg/dL 8.7-10 .2 normal Not Available [facility] ([facility]) [address] [facility] [place], [address], 12/28/2024 12:07:55 12/28/19 25 12/28/2024 COMP. METAB OLIC PANEL (14) protein, total 7.2 g/dL 6.0-8. 5 normal Not Available [facility] ([facility]) [address], [place], [address], 12/28/2024 12:07:55 12/28/19 25 12/28/2024 COMP. METAB OLIC PANEL (14) albumin 4.6 g/dL 3.8-4. 9 normal Not Available [facility] ([facility]) [address] [place], [address], 12/28/2024 12:07:55 12/28/19 25 12/28/2024 COMP. METAB OLIC PANEL (14) globulin, total 2.6 g/dL 1.5-4. 5 Not Available [facility] ([facility]) [address], [place], [address], 12/28/2024 12:07:55 12/28/19 25 12/28/2024 COMP. METAB OLIC PANEL (14) bilirubin, total 0.3 mg/dL 0.0-1. 2 normal Not Available [facility] ([facility]) [address] [facility], [place], [address], 12/28/2024 12:07:55 12/28/19 25 12/28/2024 COMP. METAB OLIC PANEL (14) alkaline phosphatase 79 IU/L 44-121 normal Not Available [facility] ([facility]) [address], [place], [address], 12/28/2024 12:07:55 12/28/19 25 12/28/2024 COMP. METAB OLIC PANEL (14) AST (SGOT) 23 IU/L 0-40 normal Not Available [facility] ([facility]) [address] [facility], [place], [address], 12/28/2024 12:07:55 12/28/19 25 12/28/2024 COMP. METAB OLIC PANEL (14) ALT (SGPT) 29 IU/L 0-32 normal Not Available [facility] ([facility]) [address] [facility], [place], [address], 12/28/2024 12:07:55 Result Notes None recorded. Problems Name Problem SNOMED Code Status Onset Date Resolution Date Notes Provider Name and Address Organization Details Recorded Time Essential hypertension 90482130 Active 2024 Sara Stears null, [place] - [facility] 09:15:37 Hypercholester olemia 78537442 Active 2024 Sara Stears null, [place] - [facility] 09:15:46 Hypothyroidism 04925872 Active 2024 Sara Stears null, [place] - [facility] 09:16:35 Vitamin D below reference range 362768901 Active 2024 Sara Stears null, [place] - [facility] 09:18:27 Chronic obstructive pulmonary disease 12109972 Active 2024 Sara Stears null, [place] - [facility] 09:20:45 Problem Notes None recorded. Procedures Surgical History Date Name Laterality Status Provider Name and Address Organization Details Recorded Time 10/21/18 91 Dilation and Curettage, sharp completed Sara Stears [place] - [facility] 01/03/2025 08:51:20 endoscopic carpal tunnel release completed Sara Stears [place] - [facility] 12/06/2024 09:26:07 hysterectomy completed Sara Stears [place] - [facility] 12/06/2024 09:26:16 biopsy of thyroid completed Sara Stears [place] - [facility] 12/06/2024 09:26:23 ligation of fallopian tube completed Sara Stears [place] [facility] 12/06/2024 09:26:39 destruction of lesion of uterus completed Sara Stears [place] [facility] 12/06/2024 09:27:16 colonoscopy completed Sara Stears [place] - [facility] 12/06/2024 09:27:28 Imaging Results None recorded. Procedure Notes None recorded. Medical Equipment None Reported. Allergies No known drug allergies Medications Name Sig Start Date Stop Date Status Note LastModified by Organization Details LastModified Time carvedilol 25 mg tablet TAKE ONE (1) TABLET TWICE A DAY BY ORAL ROUTE NEEDED, FOR HIGH BLOOD PRESSURE. active Not Available Not Available No t Available aspirin 81 mg tablet,delay ed release TAKE ONE (1) TABLET EVERY DAY BY ORAL ROUTE. active Not Available Not Available No t Available levothyroxin e 25 mcg tablet TAKE ONE (1) TABLET BY MOUTH EVERY DAY active Not Available Not Available No t Available amlodipine 10 mg tablet TAKE ONE (1) TABLET EVERY DAY BY ORAL ROUTE. active Not Available Not Available No t Available levothyroxin e 150 mcg tablet TAKE 1 & 1/2 (ONE & ONE-HALF) TABLETS BY MOUTH ONCE DAILY active Not Available Not Available No t Available nicotine 21 mg/24 hr daily transdermal patch Apply 1 patch every day by transdermal route. 2024 active Not Available Not Available Not Avai lable lisinopril 20 mg-hydrochlo rothiazide 25 mg tablet TAKE ONE (1) TABLET EVERY DAY BY ORAL ROUTE. active Not Available Not Available No t Available Ventolin HFA 90 mcg/actuatio n aerosol inhaler INHALE ONE (1) PUFF EVERY FOUR (4) HOURS BY INHALATION ROUTE NEEDED. active Not Available Not Available No t Available rosuvastatin 20 mg tablet TAKE 1 TABLET BY MOUTH ONCE DAILY active Not Available Not Available No t Available Vitamin D 1000mcg every day active Not Available Not Available No t Available cholecalcife rol (vitamin D3) 1,250 mcg (50,000 unit) capsule TAKE ONE (1) CAPSULE BY MOUTH EVERY WEEK active Not Available Not Available N ot Available Vitals Date Recorded Body weight Body mass index (BMI) Body height Respiratory rate Heart rate Oxygen saturation Oxygen saturation in Arterial blood by Pulse oximetry Body temperature Systolic And Diastolic Systolic And Diastolic Provider Name and Address Organization Details Last Updated DateTime 5 05088.5 1 g 35.4 kg/m2 158.12 cm 18 /min 80 /min 96 % 96 % 97.9 [degF] 178/120 mm[Hg] 180/124 mm[Hg] Sara Stears [place] - [facility] 5 09:14:46 Date Recorded Body height Provider Name an d Address Organization Details Last Updated DateTime 12/27/2024 158.12 cm Yvonne Zarate [place] - [facility] 0 12/27/2024 09:09:26 Date Recorded Body height Respiratory rate Body mass index (BMI) Body weight Body temperature Oxygen saturation Oxygen saturation in Arterial blood by Pulse oximetry Heart rate Systolic And Diastolic Provider Name and Address Organization Details Last Updated DateTime 158.12 cm 18 /min 34.3 kg/m2 80441.9 6 g 98 [degF] 97 % 97 % 68 /min 142/90 mm[Hg] Sara Lazaro [place] - [facility] 08:53:53 Social History Question Answer Notes LastModified by Organizat ion Details LastModified Time Tobacco Smoking Status Current Every Day Smoker Sara Lazaro null, [place] - [facility] 12/06/2024 09:23:08 Do You Have An Advance Directive? No Information not available 12/06/2024 Are You Blind Or Do You Have Difficulty Seeing? No Information not available 12/06/2024 Is Blood Transfusion Acceptable In An Emergency? Yes Information not available 01/03/2025 What Is Your Level Of Caffeine Consumption? Moderate Information not available 12/06/2024 How Much Tobacco Do You Chew? None Information not available 01/03/2025 Are You Deaf Or Do You Have Serious Difficulty Hearing? Yes Information not available 01/03/2025 What Type Of Diet Are You Following? REGULAR Information not available 12/06/2024 What Is The Highest Grade Or Level Of School You Have Completed Or The Highest Degree You Have Received? [id number] Information not available 12/06/2024 Have There Been Any Changes To Your Family Or Social Situation? No Information no t available 12/06/2024 What Is The Fluoride Status Of Your Home? Unknown Information not available 12/06/2024 Do You Have A Medical Power Of [place]? No Information not available 12/06/2024 What Was The Date Of Your Most Recent Tobacco Screening? 12/06/2024 Information not available 12/06/2024 How Many Children Do You Have? 4 Information not available 12/06/2024 What Is Your Current Pack Years? 30ormorepacky ears Information not available 12/06/2024 Do You Use Protection Against STDs? No Information not available 01/03/2025 What Is Your Relationship Status? Information not available 12/06/2024 Do You Use Your Seat Belt Or Car Seat Routinely? Yes Information not available 01/03/2025 Are You Sexually Active? No Information not available 01/03/2025 Do You Have Smoke And Carbon Monoxide Detectors In Your Home? Yes Information not available 01/03/2025 At What Age Did You Start Smoking Tobacco? 15 Information not available 12/06/2024 Are You Passively Exposed To Smoke? Yes Information no t available 01/03/2025 How Much Tobacco Do You Smoke? 1 PPD Information not available 12/06/2024 Do You Use Sunscreen Routinely? No Information not available 01/03/2025 Has Tobacco Cessation Counseling Been Provided? Yes Information not available 12/06/2024 On What Date Was Tobacco Cessation Counseling Provided? 12/06/2024 Information not available 12/06/2024 How Many Years Have You Smoked Tobacco? 44 Information not available 12/06/2024 Do You Have Difficulty Walking Or Climbing Stairs? No Information not available 12/06/2024 How Many Years Have You Used E-cigarettes Or Vape? 1 Information not available 12/06/2024 Do You Have Any Future Plans To Get ? No, I Don't Want To Become Information not available 12/06/2024 Sex: Female Functional Status Question Answer Note LastModified by Organizat ion Details LastModified Time Do you or have you ever used smokeless tobacco? Never used smokeless tobacco Information not available 12/06/2024 Are you currently employed? No Information not available 12/06/2024 Do you have transportation difficulties? No Information not available 12/06/2024 Are you able to care for yourself? Yes Information n ot available 12/06/2024 Do you have difficulty dressing or bathing? No Information not available 12/06/2024 Do you or have you ever used e-cigarettes or vape? Former user of electronic cigarettes Information not available 12/06/2024 What is your exercise level? None Information not available 12/06/2024 Do you use any illicit or recreational drugs? No Information not available 12/06/2024 Do you or have you ever used any other forms of tobacco or nicotine? Yes Information not available 12/06/2024 What is your level of alcohol consumption? None Information not available 12/06/2024 What is your status? Not Information no t available 12/06/2024 Are you able to walk? YESWOREST Information not available 12/06/2024 Do you have difficulty doing errands alone? No Information not available 12/06/2024 Mental Status Question Answer Note LastModified by Organizat ion Details LastModified Time Do you feel stressed (tense, restless, nervous, or anxious, or unable to sleep at night)? [id number] Information not available 01/03/2025 Do you have difficulty concentrating, remembering or making decisions? No Information no t available 12/06/2024 Family History Relationship Description Onset Age of this Age Resolved Age Notes LastModified by Organization Details LastModified Time Father No current problems or disability bstears Not available 01/03 08:51:19 Father Malignant neoplasm of lung bstears Not available 2024 08:51:19 Father Arthritis bstears Not available 01/03/2025 08:51:19 Father Hypertensive disorder bstears Not available 2024 08:51:19 Mother No current problems or disability bstears Not available 01/03 08:51:19 Mother Hypertensive disorder bstears Not available 2024 08:51:19 Mother Diabetes mellitus bstears Not available 2024 08:51:19 Son Depressive disorder bstears Not available 2024 08:51:19 Sister Hypertensive disorder bstears Not available 2024 08:51:19 Medical History Condition Response Ear or Hearing Problems Y Thyroid Problems Y Depression Y Eating Disorder Y Anemia Y Anxiety Disorder Y Vision or Eye Problems Y Arthritis Y Head Injury/Concussion Y Acid Reflux (GERD) Y Hypertension Y Gynecological History Statement/Question Response Abnormal Pap N Date of Last Mammogram Date of LMP 07/29/2011 STIs/STDs N HPV Vaccine N Current Control Method None Age at Menarche 11 Age at First Child 18 Date of Last Colonoscopy Most Recent Bone Density Sexually Active? N Menses Monthly N LMP Unknown Hormone Replacement Therapy N Obstetrics History GPAL:G 0 P 0 0 0 0 Immunizations Vaccine Type Date Status Note Provider Nam e and Address Organization Details Recorded Time Hep B, adult 7 completed Not Available [facility] 01/03/2025 08:36:52 Hep B, adult 7 completed Not Available [facility] 01/03/2025 08:36:52 Hep B, adult 7 completed Not Available [facility] 01/03/2025 08:36:52 Td (adult), 2 Lf tetanus toxoid, preservative free, adsorbed 3 completed Not Available [facility] 01/03/2025 08:36:52 Past Encounters Encounter ID Performer Location Encounter Start Date Encounter Closed Date Diagnosis/Indication Diagnosis SNOMED-CT Code Diagnosis ICD10 Code [id number] [address] 12/06/2024 08:50:48 12/06/2024 10:26:38 Essential hypertension 69645885 I10 restart bp medscheck bp at home keep log bring to appointmen t next weekif any symptoms go to ed asappt again refused to go to ed for eval Hypercholesterolemia 136 17569 E78.00 Hypothyroidism 71033383 E03.9 Vitamin D below reference range 508188355 R79.89 Chronic ob structive pulmonary disease 84553539 J44.9 Hoarse 26178879 R49.[id number] [address] 12/27/2024 08:37:14 12/27/2024 10:12:52 Essential hypertension 50520101 I10 restart bp medscheck bp at home keep log bring to appointmen t next weekif any symptoms go to ed asappt again refused to go to ed for eval [id number] Eugonda Fryman, [employer] [facility] [address] [facility] [address] 01/03/2025 08:36:28 01/03/2025 09:27:05 Preprocedural examination done 5493766011 11709 Z01.818 Obese class I 5522033650 45597 E66.811 Z68.34 34.3 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 Substance abuse counseling 553290437 Z71.6 Health Concerns Section Related Observation LastModified by Organization Detai ls LastModified Time None Recorded Concern Status LastModified by Organization Details LastModified Time None Recorded Advance Directives Directive N: Payers Insurance Date Sequence Insurance Name Policy Number Policy Stack Covered Member ID Stack Member ID Guarantor Name 12/31/2024 1 [employer] [facility] (MEDICAID HMO) Abigail Arechiga [id number] Abigail Arechiga Notes Date Note Type Note Provider Name and Address Organization Details Recorded Time 12/06/2024 text/html 59 year old female who presents to the office today to establish carehas concerns of needs to restart medication, she has not had insurance until now, she has had no meds since at leasthypothyroidi sm, hypertension, high cholesterol, copd, low vit d.pt does not want to go to ed states once she is back on her meds her bp will go down. pt states she has been checking it at home and it has always been high since stopping medspt states she was on a blood thinner but does not know why or the name of ithas concerns of swelling in eyelids and feet/legs, handsalso has hoarseness in voice x more than 4 months. states she was yelling at older grandkids one day and has been hoarse since. Xavier Gurrola, LAZARO [address], [place], [address], [place] - [facility] 12/06/2024 10:19:03 OBGyn Episode No OBEpisode recorded.
--- OUTSIDE RECORDS SUMMARY | 2025-01-03 10:09 | XMS_ITS | Continuity of Care Document ---
Author Organization [facility] Angelina Garcia [facility] Address [address] [place] [address] Assessment No assessment recorded. Plan of Treatment Reminders Order Date Submit Date Provider Last Modified By Organization Details Last Modified Time Details Appointments History and Physical 20 2024 08:40A Chet Gurrola APRN Not available Not available Not available Lab lipid panel, serum 2024 025 ABY [facility], [address], [address], [place], [address], 12/08/2024 01:06:18 CMP, serum or plasma 2024 025 ABY [facility], [address], [address], [place], [address], 12/08/2024 01:06:17 CBC w/ auto diff 2024 025 ABY [facility], [address], [address], [place], [address], 12/08/2024 01:06:17 renal function panel, serum 2024 025 ABY [facility], [address], [address], [place], [address], 12/08/2024 01:06:17 vitamin D, 25-hydrox y, total, serum 2024 025 ABY [facility], [address], [address], [place], [address], 12/08/2024 01:06:18 TSH + free T4, serum 2024 025 ALVORD [facility], [address], [address], [place], [address], 12/08/2024 01:06:16 Referral otolaryng ologist referral 2024 025 [facility], [address], [place], [address], 12/26/2024 18:33:49 Procedures None recorded. Surgeries None recorded. Imaging None recorded. Medication Orders amlodipin e 10 mg tablet [address], [address], 12/06/2024 10:13:19 aspirin 81 mg tablet,de layed release [address], [address], 12/06/2024 10:13:20 carvedilo l 25 mg tablet [address], [address], 12/06/2024 10:13:20 lisinopri l 20 mg-hydroc hlorothia zide 25 mg tablet [address], [address], 12/06/2024 10:13:19 albuterol sulfate HFA 90 mcg/actua tion aerosol inhaler [address], [address], 12/06/2024 10:14:11 Patient TargetsNo targets recorded. Patient InstructionsNo instructions recorded. Reason for Referral Copy Preparer Referral fo r Hoarse Referring Physician: Xavier Gurrola, Family Medicine, Encounter Date: 12/06/2024 Results Created Date Observation Date Name Description Value Unit Range Abnormal Flag Note LastModifiedBy Organization Detail LastModifiedTime 12/07/1912/07/2024 TSH+F REE T4 TSH 130.00 0 uIU/m L 0.450- 4.500 above high normal Resul ts confi rmed on dilut ion. Not Available [facility] ([facility]) [address] [place], [address], 12/08/2024 01:06:16 12/07/1912/08/2024 TSH+F REE T4 T4,free(dire ct) <0.10 NG/dL 0.82-1 .77 below low normal Vanesa ified by repea t misty sis Not Available [facility] ([facility]) [address] [place], [address], 12/08/2024 01:06:16 12/07/19 25 12/07/2024 CBC WITH DIFFE RENTI AL/PL ATELE T WBC COMMEN T x10e3 /uL Test not perfo rmed. Whole blood speci men parti ally or compl etely clott ed. A commo n cause is insuf ficie nt mixin g upon colle ction . Not Available [facility] ([facility]) [address] [facility], [place], [address], 12/08/2024 01:06:17 12/07/1912/07/2024 CBC WITH DIFFE RENTI AL/PL ATELE T RBC TNP Test not perfo rmed Not Available [facility] ([facility]) [address] [facility], [place], [address], 12/08/2024 01:06:17 12/07/19 25 12/07/2024 CBC WITH DIFFE RENTI AL/PL ATELE T hemoglobin TNP Test not perfo rmed Not Available [facility] ([facility]) [address] [facility], [place], [address], 12/08/2024 01:06:17 12/07/1912/07/2024 CBC WITH DIFFE RENTI AL/PL ATELE T hematocrit TNP Test not perfo rmed Not Available [facility] ([facility]) [address] [facility], [place], [address], 12/08/2024 01:06:17 12/07/19 25 12/07/2024 CBC WITH DIFFE RENTI AL/PL ATELE T MCV RECRUITMENT OFFICER Not Available [facility] ([facility]) [address] [facility], [place], [address], 12/08/2024 01:06:17 12/07/1912/07/2024 CBC WITH DIFFE RENTI AL/PL ATELE T MCH RECRUITMENT OFFICER Not Available [facility] ([facility]) [address] [facility], [place], [address], 12/08/2024 01:06:17 12/07/19 25 12/07/2024 CBC WITH DIFFE RENTI AL/PL ATELE T MCHC RECRUITMENT OFFICER Not Available [facility] ([facility]) [address] [facility], [place], [address], 12/08/2024 01:06:17 12/07/1912/07/2024 CBC WITH DIFFE RENTI AL/PL ATELE T RDW RECRUITMENT OFFICER Not Available [facility] ([facility]) [address] [facility], [place], [address], 12/08/2024 01:06:17 12/07/19 25 12/07/2024 CBC WITH DIFFE RENTI AL/PL ATELE T platelets TNP Test not perfo rmed Not Available [facility] ([facility]) [address] [facility], [place], [address], 12/08/2024 01:06:17 12/07/19 25 12/07/2024 CBC WITH DIFFE RENTI AL/PL ATELE T neutrophils TNP Test not perfo rmed Not Available [facility] ([facility]) [address] [place], [address], 12/08/2024 01:06:17 12/07/19 25 12/07/2024 CBC WITH DIFFE RENTI AL/PL ATELE T lymphs TNP Test not perfo rmed Not Available [facility] ([facility]) [address] [place], [address], 12/08/2024 01:06:17 12/07/19 25 12/07/2024 CBC WITH DIFFE RENTI AL/PL ATELE T monocytes TNP Test not perfo rmed Not Available [facility] ([facility]) [address] [place], [address], 12/08/2024 01:06:17 12/07/19 25 12/07/2024 CBC WITH DIFFE RENTI AL/PL ATELE T eos TNP Test not perfo rmed Not Available [facility] ([facility]) [address] [place], [address], 12/08/2024 01:06:17 12/07/19 25 12/07/2024 CBC WITH DIFFE RENTI AL/PL ATELE T basos RECRUITMENT OFFICER Not Available [facility] ([facility]) [address] [place], [address], 12/08/2024 01:06:17 12/07/19 25 12/07/2024 CBC WITH DIFFE RENTI AL/PL ATELE T immature cells RECRUITMENT OFFICER Not Available [facility] ([facility]) [address] [place], [address], 12/08/2024 01:06:17 12/07/19 25 12/07/2024 CBC WITH DIFFE RENTI AL/PL ATELE T neutrophils (absolute) RECRUITMENT OFFICER Not Available [facility] ([facility]) [address] [place], [address], 12/08/2024 01:06:17 12/07/19 25 12/07/2024 CBC WITH DIFFE RENTI AL/PL ATELE T lymphs (absolute) TNP Test not perfo rmed Not Available [facility] ([facility]) [address] [facility], [place], [address], 12/08/2024 01:06:17 12/07/19 25 12/07/2024 CBC WITH DIFFE RENTI AL/PL ATELE T monocytes(ab solute) RECRUITMENT OFFICER Not Available [facility] ([facility]) [address] [place], [address], 12/08/2024 01:06:17 12/07/1912/07/2024 CBC WITH DIFFE RENTI AL/PL ATELE T eos (absolute) TNP Test not perfo rmed Not Available [facility] ([facility]) [address] [place], [address], 12/08/2024 01:06:17 12/07/19 25 12/07/2024 CBC WITH DIFFE RENTI AL/PL ATELE T baso (absolute) TNP Test not perfo rmed Not Available [facility] ([facility]) [address] [place], [address], 12/08/2024 01:06:17 12/07/1912/07/2024 CBC WITH DIFFE RENTI AL/PL ATELE T immature granulocytes RECRUITMENT OFFICER Not Available [facility] ([facility]) [address] [place], [address], 12/08/2024 01:06:17 12/07/19 25 12/07/2024 CBC WITH DIFFE RENTI AL/PL ATELE T immature grans (abs) RECRUITMENT OFFICER Not Available [facility] ([facility]) [address] [place], [address], 12/08/2024 01:06:17 12/07/19 25 12/07/2024 CBC WITH DIFFE RENTI AL/PL ATELE T NRBC RECRUITMENT OFFICER Not Available [facility] ([facility]) [address] [facility] [place], [address], 12/08/2024 01:06:17 12/07/19 25 12/07/2024 CBC WITH DIFFE RENTI AL/PL ATELE T hematology comments: RECRUITMENT OFFICER Not Available [facility] ([facility]) [address] [facility], [place], [address], 12/08/2024 01:06:17 12/07/19 25 12/07/2024 COMP. METAB OLIC PANEL (14) glucose 84 mg/dL 70-99 normal Not Available [facility] ([facility]) [address] [facility] [place], [address], 12/08/2024 01:06:17 12/07/19 25 12/07/2024 COMP. METAB OLIC PANEL (14) BUN 23 mg/dL 6-24 normal Not Available [facility] ([facility]) [address] [facility] [place], [address], 12/08/2024 01:06:17 12/07/19 25 12/07/2024 COMP. METAB OLIC PANEL (14) creatinine 1.35 mg/dL 0.57-1 .00 above high normal Not Available [facility] ([facility]) [address] [place], [address], 12/08/2024 01:06:17 12/07/19 25 12/07/2024 COMP. METAB OLIC PANEL (14) eGFR 45 mL/mi n/1.7 3 >59 below low normal Not Available [facility] ([facility]) [address] [place], [address], 12/08/2024 01:06:17 12/07/19 25 12/07/2024 COMP. METAB OLIC PANEL (14) BUN/creatini ne ratio 17 9-23 normal Not Available [facility] ([facility]) [address] [facility] [place], [address], 12/08/2024 01:06:17 12/07/19 25 12/07/2024 COMP. METAB OLIC PANEL (14) sodium 139 mmol/ L 134-14 4 normal Not Available [facility] ([facility]) [address] [facility], [place], [address], 12/08/2024 01:06:17 12/07/19 25 12/07/2024 COMP. METAB OLIC PANEL (14) potassium 4.9 mmol/ L 3.5-5. 2 normal Speci men recei latasha hemol yzed. Value may be incre ased by hemol ysis. Clini sumaya corre latio n indic ated. Not Available [facility] ([facility]) [address] [facility] [place], [address], 12/08/2024 01:06:17 12/07/19 25 12/07/2024 COMP. METAB OLIC PANEL (14) chloride 100 mmol/ L 96-106 normal Not Available [facility] ([facility]) [address] [facility] [place], [address], 12/08/2024 01:06:17 12/07/19 25 12/07/2024 COMP. METAB OLIC PANEL (14) carbon dioxide, total 21 mmol/ L 20-29 normal Not Available [facility] ([facility]) [address] [facility] [place], [address], 12/08/2024 01:06:17 12/07/19 25 12/07/2024 COMP. METAB OLIC PANEL (14) calcium 10.1 mg/dL 8.7-10 .2 normal Not Available [facility] ([facility]) [address] [facility] [place], [address], 12/08/2024 01:06:17 12/07/19 25 12/07/2024 COMP. METAB OLIC PANEL (14) protein, total 7.5 g/dL 6.0-8. 5 normal Not Available [facility] ([facility]) [address] [facility] [place], [address], 12/08/2024 01:06:17 12/07/19 25 12/07/2024 COMP. METAB OLIC PANEL (14) albumin 4.6 g/dL 3.8-4. 9 normal Not Available [facility] ([facility]) [address] [facility] [place], [address], 12/08/2024 01:06:17 12/07/19 25 12/07/2024 COMP. METAB OLIC PANEL (14) globulin, total 2.9 g/dL 1.5-4. 5 Not Available [facility] ([facility]) [address] [facility] [place], [address], 12/08/2024 01:06:17 12/07/19 25 12/07/2024 COMP. METAB OLIC PANEL (14) bilirubin, total 0.3 mg/dL 0.0-1. 2 normal Not Available [facility] ([facility]) [address] [facility] [place], [address], 12/08/2024 01:06:17 12/07/19 25 12/07/2024 COMP. METAB OLIC PANEL (14) alkaline phosphatase 88 IU/L 44-121 normal Not Available [facility] ([facility]) [address] [facility] [place], [address], 12/08/2024 01:06:17 12/07/19 25 12/07/2024 COMP. METAB OLIC PANEL (14) AST (SGOT) 45 IU/L 0-40 above high normal Not Available [facility] ([facility]) [address] [facility] [place], [address], 12/08/2024 01:06:17 12/07/19 25 12/07/2024 COMP. METAB OLIC PANEL (14) ALT (SGPT) 68 IU/L 0-32 above high normal Not Available [facility] ([facility]) [address] [place], [address], 12/08/2024 01:06:17 12/07/19 25 12/07/2024 RENAL PANEL (10) phosphorus 3.3 mg/dL 3.0-4. 3 normal Not Available [facility] ([facility]) [address] [place], [address], 12/08/2024 01:06:17 12/07/19 25 12/07/2024 LIPID PANEL cholesterol, total 304 mg/dL 100-19 9 above high normal Not Available [facility] ([facility]) [address] [place], [address], 12/08/2024 01:06:18 12/07/19 25 12/07/2024 LIPID PANEL triglyceride s 156 mg/dL 0-149 above high normal Not Available [facility] ([facility]) [address] [place], [address], 12/08/2024 01:06:18 12/07/19 25 12/07/2024 LIPID PANEL HDL cholesterol 80 mg/dL >39 normal Not Available [facility] ([facility]) [address] [place], [address], 12/08/2024 01:06:18 12/07/19 25 12/07/2024 LIPID PANEL VLDL cholesterol sumaya 28 mg/dL 5-40 Not Available [facility] ([facility]) [address] [place], [address], 12/08/2024 01:06:18 12/07/19 25 12/07/2024 LIPID PANEL LDL chol calc ([facility]) 196 mg/dL 0-99 above high normal Not Available [facility] ([facility]) [address] [place], [address], 12/08/2024 01:06:18 12/07/19 25 12/07/2024 LIPID PANEL LDL calc comment: Commen t Consi homa evalu ating for Famil ial Hyper mylene stero lemia (FH), if clini sarah indic ated. Not Available [facility] ([facility]) [address] [facility], [place], [address], 12/08/2024 01:06:18 12/07/19 25 12/07/2024 VITAM IN [...] um and D. Lilo brizuela [place]: [facility] . 2. Rayne valencia MF, Romain goff NC, Nahomi off-F errar i ONEILL, et al. Evalu ation , treat ment, and preve ntion of vitam in D defic iency : an Endoc rine Socie ty clini sumaya pract ice guide line. JCEM. 2010; 96(7) :1911 -30. Not Available [facility] ([facility]) [address] [facility], [place], [address], 12/08/2024 01:06:18 12/07/19 25 12/07/2024 SPECI MEN STATU S REPOR T specimen status report COMMEN T Test not perfo rmed. Whole blood speci men parti ally or compl etely clott ed. A commo n cause is insuf ficie nt mixin g upon colle ction . TEST: [id number] 9 CBC With Diffe renti al/Pl atele t Not Available [facility] ([facility]) [address], [place], [address], 12/08/2024 01:06:19 Result Notes None recorded. Problems Name Problem SNOMED Code Status Onset Date Resolution Date Notes Provider Name and Address Organization Details Recorded Time Essential hypertension 16080768 Active 2024 Sara Stears null, [place] - [facility] 09:15:37 Hypercholester olemia 43914359 Active 2024 Sara Stears null, [place] - [facility] 09:15:46 Hypothyroidism 74905252 Active 2024 Sara Stears null, [place] - [facility] 09:16:35 Vitamin D below reference range 905858326 Active 2024 Sara Stears null, [place] - [facility] 09:18:27 Chronic obstructive pulmonary disease 15511832 Active 2024 Sara Stears null, [place] - [...] Address Organization Details Last Updated DateTime 5 40755.5 1 g 35.4 kg/m2 158.12 cm 18 /min 80 /min 96 % 96 % 97.9 [degF] 178/120 mm[Hg] 180/124 mm[Hg] Sara Willis [place] - [facility] 09:14:46 Social History Question Answer Notes LastModified by Organizat ion Details LastModified Time Tobacco Smoking Status Current Every Day Smoker Sara Willis null, [place] - [facility] 12/06/2024 09:23:08 Do [...] Or The Highest Degree You Have Received? [id number] Information not available 12/06/2024 Have There Been Any Changes To Your Family Or Social Situation? No Information no t available 12/06/2024 What Is The Fluoride Status Of Your Home? Unknown Information not available 12/06/2024 Do You Have A Medical Power Of Woven Wood Shade As[employer]er? No Information not available 12/06/2024 What Was [...] anxious, or unable to sleep at night)? [id number] Information not available 01/03/2025 Do you have [...] available 2024 08:51:19 Medical History Condition Response Depression Y Anxiety Disorder Y Vision or Eye Problems Y Arthritis Y Head Injury/Concussion Y Acid Reflux (GERD) Y Ear or Hearing Problems Y Thyroid Problems Y Eating Disorder Y Anemia Y Hypertension Y Gynecological History Statement/Question Response [...] Not Available [facility] 01/03/2025 08:36:52 Td (adult), 2 Lf tetanus toxoid, preservative free, adsorbed 3 completed Not Available [facility] 01/03/2025 08:36:52 Past Encounters Encounter ID Performer Location Encounter Start Date Encounter Closed Date Diagnosis/Indication Diagnosis SNOMED-CT Code Diagnosis ICD10 Code Diagnosis Note [id number] Xavier Gurrola APRN [facility] [address] [place] [address] 12/06/2024 08:50:48 12/06/2024 10:26:38 Essential hypertension 21182531 I10 restart bp medscheck bp at home keep log bring to appointmen t next weekif any symptoms go to ed asappt again refused to go to ed for eval Hypercholesterolemia 136 25837 E78.00 Hypothyroidism 84264995 E03.9 Vitamin D below reference range 585018321 R79.89 Chronic ob structive pulmonary disease 76230865 J44.9 Hoarse 02691214 R49.0 Health Concerns Section Related Observation LastModified by Organization Detai ls LastModified Time None Recorded Concern Status LastModified by Organization Details LastModified Time None Recorded Payers Encounter Date Sequence Insurance Name Policy Number Policy Stack Covered Member ID Stack Member ID Guarantor Name 12/06/2024 1 [facility] (MEDICAID HMO) Abigail Arechiga [id number] Abigail Arechiga Notes Date Note Type Note [...] since. Xavier Gurrola, [place], [place], [address], [facility] - [facility] 12/06/2024 10:19:03 OBGyn Episode No OBEpisode recorded.
--- OUTSIDE RECORDS SUMMARY | 2025-01-03 10:09 | XMS_ITS | Clinical Summary ---
Author Organization [facility] Address [address] [place] [address] Phone Care Team Providers Care Home Health Care Respiratory Therapist Name Role Phone Nick Romero MD Primary Care Provider [phone] Allergies No known active allergies Medications lisinopril-hydr ochlorothiazide (PRINZIDE;ZESTO RETIC) 20-25 mg Oral Tablet Take 1 Tab by mouth daily. Active UNKNOWN TO PATIENT Active UNKNOWN TO PATIENT Active UNKNOWN TO PATIENT Active omeprazole (PRILOSEC) 20 mg Oral Capsule, Delayed Release(E.C.) Take 1 Cap by mouth every morning (before breakfast). 30 Cap 05/26/2018 Active Surgical History Surgery Date Site/Laterality Comments TUBAL LIGATION HYSTERECTOMY CARPAL TUNNEL RELEASE Medical History Medical History Date Comments Hypertension Thyroid disease Anxiety Depression Social History Tobacco Use Types Packs/Day Years Used Date Smoking Tobacco: Never Assessed Alcohol Use Standard Drinks/Week Comments No 0 (1 standard drink = 0.6 oz pur e alcohol) Comments Unknown Sex and Gender Information Value Date Recorded Sex Assigned at Not on file Legal Sex Female 12:02 PM EST Gender Identity Not on file Sexual Orientation Not on file Obstetrics History Last Filed Vital Signs Vital Sign Reading Time Taken Comments Blood Pressure 146/96 05/26/2018 2:31 PM EST Pulse 82 05/26/2018 2:31 PM EST Temperature 36.8 C (98.2 F) 05/26/2018 12:07 PM EST Respiratory Rate 22 05/26/2018 2:31 PM EST Oxygen Saturation 100% 05/26/2018 2:31 PM EST Inhaled Oxygen Concentration - - Weight 68 kg (150 lb) 05/26/2018 12:07 PM EST Height - - Body Mass Index - - Plan of Treatment Health Maintenance Due Date Last Done Comments Annual Wellness Exam 1968 DTaP/TDaP/Td (1 - Tdap) 1984 Hepatitis B Vaccine (1 of 3 - 19+ 3-dose series) 1984 Cervical Cancer Screening 1986 Pap Smear 1986 HPV/Pap Cotest 11/16/1995 Breast Cancer Screening 2005 Cologuard 2010 Colon Cancer Screening 2010 Colonoscopy 2010 FIT 2010 Sigmoidoscopy 2010 Virtual Colonography 2010 Pneumococcal Vaccine 50+ (1 of 1 - PCV) 11/16/2015 Zoster (1 of 2) 11/16/2015 COVID-19 Vaccine ( - 2023-2 5 season) 2024 Influenza Vaccine (#1) 2025 Meningococcal B Vaccine Aged Out No l onger eligible based on patient's age to complete this topic Insurance Sealed [facility] [address] [address] ANTHEM Care Teams Home Health Care Respiratory Therapist Relationship Specialty Start Date End Date Nick Romero MD [address] [place] [phone] PCP - General Emergency Medicine 05/26/18
--- NOTE | 2025-01-03 10:12 | XR_ITS ---
FINAL REPORT CLINICAL HISTORY: preoperative pulmonary exam COMPARISON: None FINDINGS: PA and lateral views of the chest were obtained. No acute pulmonary density is evident. There is no evidence of effusion or other pleural disease. The mediastinum has a normal appearance. Mild cardiomegaly is noted. IMPRESSION: Mild cardiomegaly. Reviewed, Interpreted and Dictated by Corby Jaimes MD Transcribed by Sandra Palomino Authenticated and [facility]
--- NOTE | 2025-01-03 10:39 | ECG_ITS ---
APPROVED REPORT Exam: Resting ECG HR:61 bpm ECG Measurements Heart Rate 61 AXES MT 208 P 36 QRSd 94 QRS -27 QT 392 T 36 QTc 394 Conclusion SINUS RHYTHM INDETERMINATE AXIS LOW QRS VOLTAGE IN PRECORDIAL LEADS [QRS DEFLECTION < 1.0 mV IN CHEST LEADS] ANTEROSEPTAL MYOCARDIAL INFARCTION , OF INDETERMINATE AGE [40+ ms Q WAVE IN V1-V4] ABNORMAL ECG UNCONFIRMED REPORT Electronically signed by : Adolfo Linda MD 01/06/2025 07:57:25
[2025-01-03 10:57] LABS: Hematocrit 36.9 % (37.0-47.0); Hemoglobin 12.4 g/dL (12.2-16.2); Mean Corpuscular HGB Conc 33.6 g/dL (31.8-35.4); Mean Corpuscular Hemoglobin 35.0 pg (27.0-31.2); Mean Corpuscular Volume 104.2 fl (81-99); Platelet Count 205 K/mm3 (142-424); Red Blood Count 3.54 M/mm3 (4.20-5.40); White Blood Count 6.2 K/mm3 (4.8-10.8)
[2025-01-03 11:11] LABS: Anion Gap 9.9 mEq/L (5-15); Blood Urea Nitrogen 21 mg/dl (7-17); Calcium 10.8 mg/dl (8.4-10.2); Carbon Dioxide 31 mmol/L (22.0-30.0); Chloride 102 mmol/L (98-107); Creatinine Clearance Estimated 66 mL/min (50-200); Creatinine,Serum 1.20 mg/dl (0.52-1.04); Estimated Glomerular Filt Rate 46 ml/min (>60); GFR (African American) 56 ML/MIN (>60); Glucose 94 mg/dl (74-100); Potassium 3.9 mmoL/L (3.5-5.1); Sodium 139 mmol/L (136-145)
[2025-01-03 12:08] LABS: Macrocytosis 1+; Total Cells Counted 100
== END 2025-01-03 23:59 | disposition home or self-care (01) ==
LOC: PREOP 10:07
PROVIDERS: PCP Nurse Practitioner Family; Visit Provider Otolaryngology
DX: Z01.810 Encounter for preprocedural cardiovascular examination (principal); Z01.811 Encounter for preprocedural respiratory examination; Z01.812 Encounter for preprocedural laboratory examination; I25.2 Old myocardial infarction; I51.7 Cardiomegaly; R94.31 Abnormal electrocardiogram [ECG] [EKG]
CPT/HCPCS: 71046; 80048; 85007; 85014; 85018; 85048; 85049; 93005

== ENCOUNTER 2025-01-30 10:50 | Outpatient (CLI) | payer OTHER, SELFPAY ==
--- OUTSIDE RECORDS SUMMARY | 2025-01-30 10:53 | XMS_ITS | Clinical Summary ---
Author Organization [facility] Address [address] [place] [address] Phone Care Team Providers Care Paving Plant Operator Name Role Phone Nick Romero MD Primary Care Provider [phone] Allergies No known active allergies Medications lisinopril-hydr [...] patient's age to complete this topic Insurance [facility] [address] [address] ANTHEM Care Teams Paving Plant Operator Relationship Specialty Start Date End Date Nick Romero MD [address] [place] [phone] PCP - General Emergency Medicine 05/26/18
--- NOTE | 2025-01-30 11:00 | CA_ITS ---
APPROVED REPORT EXAM: Comprehensive 2D, Doppler, and color-flow Echocardiogram Machine Accountant: Araceli Baker RT(R) Ht: 5 ft 2 in Wt: 187lbs BSA: 1.86 BP: 156/97 mmHg Indications: Shortness of breath, COPD, smoker, fatigue, Hypertension 2D Dimensions LA Volume 21.20 mL LA Volume Index 11.40 mL/m2 (M/F) 16-34 EF AP4 42.20 % GL Strain -6.1 % M-Mode Dimensions RVDd 2.37 cm (0.9-2.6) LA Diam 3.23 cm (1.9-4.0) LVDd 4.31 cm (3.5-5.7) LVDs 3.34 cm (3.5-5.7) IVSd 1.17 cm (0.6-1.1) PWd 0.93 cm (0.6-1.1) EF (Teich) 45.60% FS 22.50% EDV (Teich) 83.50 mL ESV (Teich) 45.40 mL LV Diastology E Decel Time 97 (160-240 msec) E/A Ratio 0.52 Mitral Valve MV A Velocity 74.0 (40-130 cm/s) E/A Ratio 0.52 Left Ventricle The left ventricle is normal size. Left ventricular systolic function is normal. The left ventricular ejection fraction is within the normal range. There is increased left ventricular wall thickness. There is normal LV segmental wall motion. The left ventricular diastolic function is indeterminate. LVEF is 55% Right Ventricle The right ventricle is normal size. The right ventricular systolic function is normal. Atria The left atrium size is normal. The right atrium size is normal. There is no color Doppler evidence of interatrial shunt. Aortic Valve The aortic valve is mildly thickened. There is no hemodynamically significant aortic valvular stenosis. Trace aortic regurgitation is present. Mitral Valve The mitral valve is normal in structure. No evidence of mitral valve stenosis. Mild mitral regurgitation is present. Tricuspid Valve The tricuspid valve leaflets are thin and pliable. Trace tricuspid regurgitation. There is insufficient TR jet to estimate RVSP. Pulmonic Valve The pulmonary valve is grossly normal in structure. Trace pulmonic valve regurgitation is present. Great Vessels The aortic root is normal in size. IVC is normal in size and collapses >50% with inspiration. Pericardium There is a small sized, anterior pericardial effusion along the RV free wall. The largest pocket measures 0.5 cm in diastole. There is slight invagination of the right atrium during systole, but no full chamber collapse. No clear echo indications of tamponade. Other Information Study Quality: Fair Conclusion Normal biventricular systolic function. Mild MR. There is a small sized, anterior pericardial effusion along the RV free wall. The largest pocket measures 0.5 cm in diastole. There is slight invagination of the right atrium during systole, but no full chamber collapse. No clear echo indications of tamponade. In the setting of small pericardial effusion, serial limited TTE evaluations are suggested. Clinical correlation is required. Electronically signed by : Olga Lidia Parry MD 01/31/2025 13:04:11
== END 2025-01-30 23:59 | disposition home or self-care (01) ==
LOC: RT 10:51
PROVIDERS: PCP Nurse Practitioner Family; Visit Provider Physician Assistant
DX: Z01.810 Encounter for preprocedural cardiovascular examination (principal); I34.0 Nonrheumatic mitral (valve) insufficiency; I31.39 Other pericardial effusion (noninflammatory); I10 Essential (primary) hypertension; R94.31 Abnormal electrocardiogram [ECG] [EKG]; J44.9 Chronic obstructive pulmonary disease, unspecified; F17.200 Nicotine dependence, unspecified, uncomplicated
CPT/HCPCS: 93306

== ENCOUNTER 2025-03-09 07:53 | Outpatient (CLI) | payer OTHER, SELFPAY ==
--- NOTE | 2025-03-09 08:00 | CA_ITS ---
APPROVED REPORT EXAM: Limited 2D Echocardiogram Environmental [employer] Crawler: Lucila Haji RVT Ht: 5 ft 2 in Wt: 184lbs BSA: 1.85 BP: 148/88 mmHg Indications: PERICARDIAL EFFUSION 2D Dimensions IVSd 2.23 cm F: 0.6-1.0 LVEF (Visual) 60.40 % PWd 1.25 cm F: 0.6 - 1.0 EF AP4 58.80 % LVDd 3.47 cm F: 3.9 - 5.3 GL Strain -14.0 % LVDs 2.38 cm F: 2.2 - 3.5 Other Information Study Quality: Fair Conclusion This is a limited TTE to evaluate for pericardial effusion. Limited windows were obtained. There is a trivial, anterior pericardial effusion present. The effusion is at least partially loculated. The largest pocket measures 0.2 cm in diastole. No evidence of chamber collapse. No echo indications of tamponade. Electronically signed by : Olga Lidia Parry MD 03/09/2025 12:45:39
== END 2025-03-09 23:59 | disposition home or self-care (01) ==
LOC: RT 07:54
PROVIDERS: PCP Nurse Practitioner Family; Visit Provider Physician Assistant
DX: Z01.810 Encounter for preprocedural cardiovascular examination (principal); I31.39 Other pericardial effusion (noninflammatory); I10 Essential (primary) hypertension; R60.9 Edema, unspecified; R94.31 Abnormal electrocardiogram [ECG] [EKG]
CPT/HCPCS: 93308